=== PATIENT | male | born 1960 | race Caucasian/White ===

== ENCOUNTER 2016-11-24 05:37 | Day surgery (SDC) | payer OTHER ==
[2016-11-17 13:44] VITALS: BMI 25.1
[2016-11-24] MEDS ORDERED: ONDANSETRON 4 MG/2 ML VIAL IVPUSH PRN (05:58)
[2016-11-24 07:46] VITALS: BP 130/82; PULSE 78; TEMP 98
== END 2016-11-24 07:50 | disposition home or self-care (01) ==
LOC: FECT 05:37
PROVIDERS: ATTEND Psychiatry & Neurology Psychiatry
PROC: GZB4ZZZ Other Electroconvulsive Therapy (ICD-10-PCS; principal; 2016-11-24 07:00)
DX: F25.1 Schizoaffective disorder, depressive type (principal)
CPT/HCPCS: 90870; 94760

== ENCOUNTER 2016-12-22 05:25 | Day surgery (SDC) | payer OTHER ==
[2016-12-22 06:11] VITALS: BMI 25.1
--- NOTE | 2016-12-22 06:56 | HP ---
Admitting History and Physical - Admission History of Present Illness: patient is a 56 y/o male with a past medical history of polycystic kidney disease, hypertension, hyperlipidemia, and scizoaffective disorder. patient presents for ect, his last ect was 11/24/16. patient reports feeling well, denies any recent illness or hospitalizations. he reports compliance with prescribed medications. patient denies any cough, fever, shortness of breath or chest pain. History Source: Patient Limitations to Obtaining History: No Limitations - Past Medical History Cardiovascular: Yes: HTN, Hyperlipdemia Renal/: Yes: Other (polycystic kidney disease.) Endocrine: Yes: Hypothyroidism - Past Surgical History Past Surgical History: Yes: None - Smoking History Smoking history: Never smoked Have you smoked in the past 12 months: No - Alcohol/Substance Use Hx Alcohol Use: No - Social History Usual Living Arrangement: Yes: Alone ADL: Independent History of Recent Travel: No Home Medications - Allergies Allergies/Adverse Reactions: Allergies Allergy/AdvReac Type Severity Reaction Status Date / Time propranolol HCl Allergy Severe Difficulty Verified 09/01/16 06:34 [From Inderal [place]] Breathing clozapine [From Clozaril] Allergy Intermediate Difficulty Verified 09/01/16 06: 34 Breathing Penicillins Allergy Intermediate Rash Verified 09/01/16 06:34 - Home Medications Home Medications: Ambulatory Orders Fluphenazine HCl [Prolixin -] 5 mg PO HS 03/15/13 Levothyroxine [Synthroid -] 50 mcg PO DAILY 03/15/13 Losartan Potassium 50 mg PO DAILY 03/15/13 Olanzapine [Zyprexa] 30 mg PO HS 03/15/13 Quetiapine Fumarate [Seroquel -] 400 mg PO DAILY 03/15/13 Quetiapine Fumarate [Seroquel -] 600 mg PO HS 03/15/13 Rosuvastatin Calcium [Crestor] 10 mg PO HS 03/15/13 Family Disease History - Family Disease History Family History: Unremarkable Review of Systems - Review of Systems Constitutional: reports: No Symptoms Eyes: reports: No Symptoms HENT: reports: No Symptoms Neck: reports: No Symptoms Cardiovascular: reports: No Symptoms Respiratory: reports: No Symptoms Gastrointestinal: reports: No Symptoms Genitourinary: reports: No Symptoms Musculoskeletal: reports: No Symptoms Integumentary: reports: No Symptoms Neurological: reports: No Symptoms Endocrine: reports: No Symptoms Hematology/Lymphatic: reports: No Symptoms Psychiatric: reports: No Symptoms Physical Examination Vital Signs: Vital Signs Temperature 98.7 F 12/22/16 06:09 Pulse Rate 80 12/22/16 06:09 Respiratory Rate 18 12/22/16 06:09 Blood Pressure 125/75 12/22/16 06:09 O2 Sat by Pulse Oximetry (%) 98 12/22/16 06:09 Constitutional: Yes: Well Nourished, No Distress, Calm, Thin Eyes: Yes: WNL, Conjunctiva Clear, EOM Intact HENT: Yes: WNL, Atraumatic, Normocephalic Neck: Yes: WNL, Supple, Trachea Midline Cardiovascular: Yes: WNL, Regular Rate and Rhythm Respiratory: Yes: WNL, Regular, CTA Bilaterally Gastrointestinal: Yes: WNL, Normal Bowel Sounds, Soft ...Rectal Exam: Yes: Deferred Renal/: Yes: WNL Musculoskeletal: Yes: WNL Extremities: Yes: WNL Edema: No Peripheral Pulses WNL: Yes Integumentary: Yes: WNL Neurological: Yes: WNL, Alert, Oriented ...Motor Strength: WNL Psychiatric: Yes: WNL, Alert, Oriented Labs: reviewed 07/22 Imaging - Results EKG: Image Reviewed, Other (nsr normal axis 07/22) Assessment/Plan pt is a 56 y/o male that presents for ECT, labs and ekg reviewed, he has received ect in the past and denies any adverse reaction to anesthesia, pt is low risk for ECT informed consent, risks/benefits to be obtained by Dr Curiel
[2016-12-22 08:28] VITALS: TEMP 99.2
[2016-12-22 08:31] VITALS: BP 121/71; PULSE 77
== END 2016-12-22 08:35 | disposition home or self-care (01) ==
LOC: FECT 05:25
PROVIDERS: ATTEND Psychiatry & Neurology Psychiatry
PROC: GZB4ZZZ Other Electroconvulsive Therapy (ICD-10-PCS; principal; 2016-12-22 07:00)
DX: F25.1 Schizoaffective disorder, depressive type (principal)
CPT/HCPCS: 90870; 94760

== ENCOUNTER 2017-01-19 05:36 | Day surgery (SDC) | payer OTHER ==
[2017-01-09 14:02] VITALS: BMI 25.1
--- NOTE | 2017-01-19 06:48 | HP ---
Admitting History and Physical - Admission History of Present Illness: patient is a 56 y/o male with a past medical history of scizoaffective disorder , hyperlipidemia, hypertension, and hypothyroidism. patient presents for ect, his last ect was 12/22/16. He reports feeling manic last week and took a prn seroquel with relief of symptoms. Patient denies any suicidal or homicidal ideation, visual or auditory hallucinations. He denies any recent illness, hospitalizations or medication changes. History Source: Patient Limitations to Obtaining History: No Limitations - Past Medical History Cardiovascular: Yes: HTN, Hyperlipdemia Renal/: Yes: Other (polycystic kidney disease.) Endocrine: Yes: Hypothyroidism - Past Surgical History Past Surgical History: Yes: None - Smoking History Smoking history: Never smoked Have you smoked in the past 12 months: No - Alcohol/Substance Use Hx Alcohol Use: No History of Substance Use: reports: None - Social History Usual Living Arrangement: Yes: Alone ADL: Independent History of Recent Travel: No Home Medications - Allergies Allergies/Adverse Reactions: Allergies Allergy/AdvReac Type Severity Reaction Status Date / Time propranolol HCl Allergy Severe Difficulty Verified 09/01/16 06:34 [From Inderal LA] Breathing clozapine [From Clozaril] Allergy Intermediate Difficulty Verified 09/01/16 06: 34 Breathing Penicillins Allergy Intermediate Rash Verified 09/01/16 06:34 - Home Medications Home Medications: Ambulatory Orders Fluphenazine HCl [Prolixin -] 5 mg PO HS 03/15/13 Levothyroxine [Synthroid -] 50 mcg PO DAILY 03/15/13 Losartan Potassium 50 mg PO DAILY 03/15/13 Olanzapine [Zyprexa] 30 mg PO HS 03/15/13 Quetiapine Fumarate [Seroquel -] 400 mg PO DAILY 03/15/13 Quetiapine Fumarate [Seroquel -] 600 mg PO HS 03/15/13 Rosuvastatin Calcium [Crestor] 10 mg PO HS 03/15/13 Quetiapine Fumarate [Seroquel -] 400 mg PO DAILY PRN 01/19/17 Family Disease History - Family Disease History Family History: Unremarkable Review of Systems - Review of Systems Constitutional: reports: No Symptoms Eyes: reports: No Symptoms HENT: reports: No Symptoms Neck: reports: No Symptoms Cardiovascular: reports: No Symptoms Respiratory: reports: No Symptoms Gastrointestinal: reports: No Symptoms Genitourinary: reports: No Symptoms Musculoskeletal: reports: No Symptoms Integumentary: reports: No Symptoms Neurological: reports: No Symptoms Endocrine: reports: No Symptoms Hematology/Lymphatic: reports: No Symptoms Psychiatric: reports: Other (manic episode) Physical Examination Vital Signs: Vital Signs Temperature 98.2 F 01/19/17 06:22 Pulse Rate 84 01/19/17 06:22 Respiratory Rate 18 01/19/17 06:22 Blood Pressure 128/79 01/19/17 06:22 O2 Sat by Pulse Oximetry (%) 99 01/19/17 06:22 Constitutional: Yes: Well Nourished, No Distress, Calm Eyes: Yes: WNL, Conjunctiva Clear, EOM Intact HENT: Yes: WNL, Atraumatic, Normocephalic Neck: Yes: WNL, Supple, Trachea Midline Cardiovascular: Yes: WNL, Regular Rate and Rhythm, S1, S2 Respiratory: Yes: WNL, Regular, CTA Bilaterally Gastrointestinal: Yes: WNL, Normal Bowel Sounds, Soft ...Rectal Exam: Yes: Deferred Renal/: Yes: WNL Breast(s): Yes: WNL Musculoskeletal: Yes: WNL Extremities: Yes: WNL Edema: No Peripheral Pulses WNL: Yes Peripheral Pulses: Left Radial: 4+, Right Radial: 4+, Left Doralis Pedis: 3+, Right Dorsalis Pedis: 3+, Left Femoral: 3+, Right Femoral: 3+ Integumentary: Yes: Laceration Neurological: Yes: WNL, Alert, Oriented ...Motor Strength: WNL Psychiatric: Yes: WNL, Alert, Oriented Labs: CBC WBC 4.7 K/mm3 (4.0-10.0) 01/19/17 06:15 RBC 4.28 M/mm3 (4.00-5.60) 01/19/17 06:15 Hgb 13.1 GM/dL (11.7-16.9) 01/19/17 06:15 Hct 39.0 % (35.4-49) 01/19/17 06:15 MCV 91.2 fl (80-96) 01/19/17 06:15 MCHC 33.5 g/dl (32.0-35.9) 01/19/17 06:15 RDW 14.1 % (11.9-15.9) 01/19/17 06:15 Plt Count 95 K/MM3 (134-434) L D 01/19/17 06:15 MPV 12.1 fl (7.5-11.1) H 01/19/17 06:15 CMP Sodium 143 mmol/L (136-145) 01/19/17 06:15 Potassium 4.0 mmol/L (3.5-5.1) 01/19/17 06:15 Chloride 107 mmol/L (98-107) 01/19/17 06:15 Carbon Dioxide 27 mmol/L (21-32) 01/19/17 06:15 Anion Gap 9 (8-16) 01/19/17 06:15 BUN 30 mg/dL (7-18) H 01/19/17 06:15 Creatinine 1.4 mg/dL (0.7-1.3) H 01/19/17 06:15 Creat Clearance w eGFR 52.42 (>60) 01/19/17 06:15 Random Glucose 97 mg/dL (74-106) 01/19/17 06:15 Calcium 8.7 mg/dL (8.5-10.1) 01/19/17 06:15 Total Bilirubin 0.3 mg/dL (0.2-1.0) 01/19/17 06:15 AST 20 U/L (15-37) 01/19/17 06:15 ALT 29 U/L (12-78) 01/19/17 06:15 Alkaline Phosphatase 90 U/L (45-117) 01/19/17 06:15 Total Protein 7.0 g/dl (6.4-8.2) 01/19/17 06:15 Albumin 3.9 g/dl (3.4-5.0) 01/19/17 06:15 Imaging - Results EKG: Image Reviewed, Other (nsr no ectopy) Assessment/Plan patient is 56 y/o male that presents for ECT, pt has received ect in the past and denies any adverse reaction to anesthesia. labs and ekg reviewed pt is low risk for procedure informed consent, risk/benefits to be obtained by Dr Curiel.
[2017-01-19] MEDS ORDERED: ONDANSETRON 4 MG/2 ML VIAL IVPUSH PRN (07:10)
[2017-01-19 07:28] LABS: MCH 30.6 pg (25.7-33.7); MCHC 33.5 g/dl (32.0-35.9); MEAN CELL VOLUME 91.2 fl (80-96); MEAN PLT VOLUME 12.1 fl (7.5-11.1); PLATELET COUNT 95 K/MM3 (134-434); RDW 14.1 % (11.9-15.9); WHITE BLOOD COUNT 4.7 K/mm3 (4.0-10.0)
[2017-01-19 08:05] LABS: ALBUMIN 3.9 g/dl (3.4-5.0); BILIRUBIN,TOTAL 0.3 mg/dL (0.2-1.0); CALCIUM 8.7 mg/dL (8.5-10.1); CREATININE 1.4 mg/dL (0.7-1.3)
[2017-01-19 09:04] VITALS: BP 126/84; PULSE 80; TEMP 98.4
--- NOTE | 2017-01-19 14:05 | EKG ---
Test Reason : Blood Pressure : / mmHG Vent. Rate : 091 BPM Atrial Rate : 091 BPM P-R Int : 170 ms QRS Dur : 086 ms QT Int : 366 ms P-R-T Axes : 049 -09 033 degrees QTc Int : 450 ms NORMAL SINUS RHYTHM NO PREVIOUS ECGS AVAILABLE Confirmed by MD REY MARJORY ([id number]) on 01/19/2017 2:05:07 PM Referred By: Asad Curiel Confirmed By:KEVIN REY MD
== END 2017-01-19 09:09 | disposition home or self-care (01) ==
LOC: FECT 05:36
PROVIDERS: ATTEND Psychiatry & Neurology Psychiatry
PROC: GZB4ZZZ Other Electroconvulsive Therapy (ICD-10-PCS; principal; 2017-01-19 07:00)
DX: F25.1 Schizoaffective disorder, depressive type (principal)
CPT/HCPCS: 36415; 80053; 85027; 90870; 93005; 93010; 94760

== ENCOUNTER 2017-02-21 05:38 | Day surgery (SDC) | payer OTHER ==
[2017-02-21 06:25] VITALS: BMI 25.1
--- NOTE | 2017-02-21 06:54 | HP ---
Admitting History and Physical - Admission History of Present Illness: patient is a 56 y/o male with a past medical history of hyperlipidemia, hypertension, hypothyroidism, and scizoaffective disorder. Patient presents for ECT his last ECT was 01/19. He reports feeling well, patient denies any recent medication changes or illness or hospitalizations. patient denies any suicidal or homicidal ideation, visual or auditory hallucination. History Source: Patient Limitations to Obtaining History: No Limitations - Past Medical History Cardiovascular: Yes: HTN, Hyperlipdemia Renal/: Yes: Other (polycystic kidney disease.) Endocrine: Yes: Hypothyroidism - Past Surgical History Past Surgical History: Yes: None - Smoking History Smoking history: Never smoked Have you smoked in the past 12 months: No - Alcohol/Substance Use Hx Alcohol Use: No History of Substance Use: reports: None - Social History ADL: Independent History of Recent Travel: No Home Medications - Allergies Allergies/Adverse Reactions: Allergies Allergy/AdvReac Type Severity Reaction Status Date / Time propranolol HCl Allergy Severe Difficulty Verified 09/01/16 06:34 [From Inderal LA] Breathing clozapine [From Clozaril] Allergy Intermediate Difficulty Verified 09/01/16 06: 34 Breathing Penicillins Allergy Intermediate Rash Verified 09/01/16 06:34 - Home Medications Home Medications: Ambulatory Orders Fluphenazine HCl [Prolixin -] 5 mg PO HS 03/15/13 Levothyroxine [Synthroid -] 50 mcg PO DAILY 03/15/13 Losartan Potassium 50 mg PO DAILY 03/15/13 Olanzapine [Zyprexa] 30 mg PO HS 03/15/13 Quetiapine Fumarate [Seroquel -] 400 mg PO DAILY 03/15/13 Quetiapine Fumarate [Seroquel -] 600 mg PO HS 03/15/13 Rosuvastatin Calcium [Crestor] 10 mg PO HS 03/15/13 Quetiapine Fumarate [Seroquel -] 400 mg PO DAILY PRN 01/19/17 Family Disease History - Family Disease History Family History: Unremarkable Review of Systems - Review of Systems Constitutional: reports: No Symptoms Eyes: reports: No Symptoms HENT: reports: No Symptoms Neck: reports: No Symptoms Cardiovascular: reports: No Symptoms Respiratory: reports: No Symptoms Gastrointestinal: reports: No Symptoms Genitourinary: reports: No Symptoms Breasts: reports: No Symptoms Reported Musculoskeletal: reports: No Symptoms Integumentary: reports: No Symptoms Neurological: reports: No Symptoms Endocrine: reports: No Symptoms Hematology/Lymphatic: reports: No Symptoms Psychiatric: reports: No Symptoms Physical Examination Vital Signs: Vital Signs Temperature 98.7 F 02/21/17 06:18 Pulse Rate 78 02/21/17 06:18 Respiratory Rate 18 02/21/17 06:18 Blood Pressure 120/77 02/21/17 06:18 O2 Sat by Pulse Oximetry (%) 96 02/21/17 06:18 Constitutional: Yes: Well Nourished, No Distress, Calm Eyes: Yes: WNL, Conjunctiva Clear, EOM Intact HENT: Yes: WNL, Atraumatic, Normocephalic Neck: Yes: WNL, Supple, Trachea Midline Cardiovascular: Yes: WNL, Regular Rate and Rhythm, S1, S2 Respiratory: Yes: WNL, Regular, CTA Bilaterally Gastrointestinal: Yes: WNL, Normal Bowel Sounds, Soft Breast(s): Yes: WNL Musculoskeletal: Yes: WNL Extremities: Yes: WNL Edema: No Peripheral Pulses WNL: Yes Peripheral Pulses: Left Radial: 4+, Right Radial: 4+, Left Doralis Pedis: 3+, Right Dorsalis Pedis: 3+, Left Femoral: 3+, Right Femoral: 3+ Integumentary: Yes: WNL Neurological: Yes: WNL, Alert, Oriented ...Motor Strength: WNL Psychiatric: Yes: WNL, Alert, Oriented Labs: reviewed 01/20 Imaging - Results EKG: Report Reviewed, Image Reviewed (nsr no ischemic changes) Assessment/Plan pt is a 56 y/o male that presents for ect, he has received ect in the past and denies any adverse reaction to anesthesia. labs and ekg reviewed pt is low risk for procedure informed consent and risks/benefits to be obtained by Dr Curiel.
[2017-02-21] MEDS ORDERED: ONDANSETRON 4 MG/2 ML VIAL IVPUSH PRN (08:31)
[2017-02-21] MEDS ORDERED: LACTATED RINGERS SOLUTION 1,000 ML IV SCH (08:45)
[2017-02-21 09:11] VITALS: TEMP 98.3
[2017-02-21 09:12] VITALS: BP 120/80; PULSE 76
== END 2017-02-21 09:05 | disposition home or self-care (01) ==
LOC: FECT 05:38
PROVIDERS: ATTEND Psychiatry & Neurology Psychiatry
PROC: GZB4ZZZ Other Electroconvulsive Therapy (ICD-10-PCS; principal; 2017-02-21 07:00)
DX: F25.1 Schizoaffective disorder, depressive type (principal)
CPT/HCPCS: 90870; 94760

== ENCOUNTER 2017-03-23 05:21 | Day surgery (SDC) | payer OTHER ==
[2017-03-23 06:39] VITALS: BMI 25.8
--- NOTE | 2017-03-23 06:50 | HP ---
Admitting History and Physical - Admission History of Present Illness: patient is a 56 y/o male with a past medical history of scizoaffective disorder , hypertension, hyperlipidemia, and hypothyroidism. patient presents for ect, his last ect was 02/21/17, Patient reports feeling well, he denies any changes to his medications, he denies any recent hospitalizations or illnesses. patient denies any suicidal or homicidal ideation, visual or auditory hallucination. History Source: Patient Limitations to Obtaining History: No Limitations - Past Medical History Cardiovascular: Yes: HTN, Hyperlipdemia Renal/: Yes: Other (polycystic kidney disease.) Endocrine: Yes: Hypothyroidism - Past Surgical History Past Surgical History: Yes: None - Smoking History Smoking history: Never smoked Have you smoked in the past 12 months: No - Alcohol/Substance Use Hx Alcohol Use: No History of Substance Use: reports: None - Social History ADL: Independent History of Recent Travel: No Home Medications - Allergies Allergies/Adverse Reactions: Allergies Allergy/AdvReac Type Severity Reaction Status Date / Time propranolol HCl Allergy Severe Difficulty Verified 09/01/16 06:34 [From Inderal LA] Breathing clozapine [From Clozaril] Allergy Intermediate Difficulty Verified 09/01/16 06: 34 Breathing Penicillins Allergy Intermediate Rash Verified 09/01/16 06:34 - Home Medications Home Medications: Ambulatory Orders Fluphenazine HCl [Prolixin -] 5 mg PO HS 03/15/13 Levothyroxine [Synthroid -] 50 mcg PO DAILY 03/15/13 Losartan Potassium 50 mg PO DAILY 03/15/13 Olanzapine [Zyprexa] 30 mg PO HS 03/15/13 Quetiapine Fumarate [Seroquel -] 400 mg PO DAILY 03/15/13 Quetiapine Fumarate [Seroquel -] 600 mg PO HS 03/15/13 Rosuvastatin Calcium [Crestor] 10 mg PO HS 03/15/13 Quetiapine Fumarate [Seroquel -] 400 mg PO DAILY PRN 01/19/17 Family Disease History - Family Disease History Family History: Unremarkable Review of Systems - Review of Systems Constitutional: reports: No Symptoms Eyes: reports: No Symptoms HENT: reports: No Symptoms Neck: reports: No Symptoms Cardiovascular: reports: No Symptoms Respiratory: reports: No Symptoms Gastrointestinal: reports: No Symptoms Genitourinary: reports: No Symptoms Musculoskeletal: reports: No Symptoms Integumentary: reports: No Symptoms Neurological: reports: No Symptoms Endocrine: reports: No Symptoms Hematology/Lymphatic: reports: No Symptoms Psychiatric: reports: No Symptoms Physical Examination Vital Signs: Vital Signs Temperature 98.4 F 03/23/17 06:35 Pulse Rate 92 H 03/23/17 06:35 Respiratory Rate 18 03/23/17 06:35 Blood Pressure 134/78 03/23/17 06:35 O2 Sat by Pulse Oximetry (%) 97 03/23/17 06:35 Constitutional: Yes: Well Nourished, No Distress, Calm Eyes: Yes: WNL, Conjunctiva Clear, EOM Intact HENT: Yes: WNL, Atraumatic, Normocephalic Neck: Yes: WNL, Supple, Trachea Midline Cardiovascular: Yes: WNL, Regular Rate and Rhythm Respiratory: Yes: WNL, Regular, CTA Bilaterally Gastrointestinal: Yes: WNL, Normal Bowel Sounds, Soft ...Rectal Exam: Yes: Deferred Renal/: Yes: WNL Musculoskeletal: Yes: WNL Extremities: Yes: WNL Edema: No Peripheral Pulses WNL: Yes Peripheral Pulses: Left Radial: 4+, Right Radial: 4+, Left Doralis Pedis: 3+, Right Dorsalis Pedis: 3+, Left Femoral: 3+, Right Femoral: 3+ Integumentary: Yes: WNL Neurological: Yes: WNL, Alert, Oriented ...Motor Strength: WNL Psychiatric: Yes: WNL, Alert, Oriented Labs: reviewed 01/20 Imaging - Results EKG: Other (nsr) Assessment/Plan pt is a 56 y/o male that presents for ect, he has received ect in the past and denies any adverse reaction to anesthesia. labs and ekg reviewed informed consent, risks/benefits to be obtained by Dr Curiel.
[2017-03-23 08:30] VITALS: TEMP 98.6
[2017-03-23 08:51] VITALS: BP 133/80; PULSE 81
[2017-03-23] MEDS ORDERED: ACETAMINOPHEN 325 MG TABLET (FP) PO PRN (09:43)
[2017-03-23] MEDS ORDERED: ONDANSETRON 4 MG/2 ML VIAL IVPUSH PRN (09:43)
== END 2017-03-23 08:55 | disposition home or self-care (01) ==
LOC: FECT 05:21
PROVIDERS: ATTEND Psychiatry & Neurology Psychiatry
PROC: GZB4ZZZ Other Electroconvulsive Therapy (ICD-10-PCS; principal; 2017-03-23 07:00)
DX: F25.1 Schizoaffective disorder, depressive type (principal)
CPT/HCPCS: 90870; 94760

== ENCOUNTER 2017-04-20 05:35 | Day surgery (SDC) | payer OTHER ==
[2017-04-20 06:06] VITALS: BMI 25.1
[2017-04-20 08:15] VITALS: TEMP 97
[2017-04-20 08:17] VITALS: BP 128/73; PULSE 73
== END 2017-04-20 08:18 | disposition home or self-care (01) ==
LOC: FECT 05:35
PROVIDERS: ATTEND Psychiatry & Neurology Psychiatry
PROC: GZB4ZZZ Other Electroconvulsive Therapy (ICD-10-PCS; principal; 2017-04-20 07:00)
DX: F25.1 Schizoaffective disorder, depressive type (principal)
CPT/HCPCS: 90870; 94760

== ENCOUNTER 2017-05-18 05:35 | Day surgery (SDC) | payer OTHER ==
[2017-05-11 12:57] VITALS: BMI 25.1
[2017-05-18 06:39] VITALS: TEMP 98
--- NOTE | 2017-05-18 06:54 | HP ---
Admitting History and Physical - Admission History of Present Illness: patient is a 56 y/o male with a past medical history of scizoaffective disorder , polycystic kidney disease, hypertension, hyperlipidemia, and hypothyroidism. Patient presents for ect, his last ect was 04/20/17. He reports feeling well and reports an improvement in mood since starting ect. He reports his loosartan was decreased to 25 mg daily and reports good blood pressure control since the change. Patient denies any recent illnesses or hospitalizations. History Source: Patient Limitations to Obtaining History: No Limitations - Past Medical History Cardiovascular: Yes: HTN, Hyperlipdemia Renal/: Yes: Other (polycystic kidney disease.) Endocrine: Yes: Hypothyroidism - Past Surgical History Past Surgical History: Yes: None - Smoking History Smoking history: Never smoked Have you smoked in the past 12 months: No - Alcohol/Substance Use Hx Alcohol Use: No History of Substance Use: reports: None - Social History Usual Living Arrangement: Yes: Alone ADL: Independent History of Recent Travel: No Home Medications - Allergies Allergies/Adverse Reactions: Allergies Allergy/AdvReac Type Severity Reaction Status Date / Time propranolol HCl Allergy Severe Difficulty Verified 09/01/16 06:34 [From Inderal LA] Breathing clozapine [From Clozaril] Allergy Intermediate Difficulty Verified 09/01/16 06: 34 Breathing Penicillins Allergy Intermediate Rash Verified 09/01/16 06:34 - Home Medications Home Medications: Ambulatory Orders Fluphenazine HCl [Prolixin -] 5 mg PO HS 03/15/13 Levothyroxine [Synthroid -] 50 mcg PO DAILY 03/15/13 Olanzapine [Zyprexa] 30 mg PO HS 03/15/13 Quetiapine Fumarate [Seroquel -] 400 mg PO DAILY 03/15/13 Quetiapine Fumarate [Seroquel -] 600 mg PO HS 03/15/13 Rosuvastatin Calcium [Crestor] 10 mg PO HS 03/15/13 Losartan Potassium [Cozaar] 25 mg PO HS 04/20/17 Family Disease History - Family Disease History Family History: Unremarkable Review of Systems - Review of Systems Constitutional: reports: No Symptoms Eyes: reports: No Symptoms HENT: reports: No Symptoms Neck: reports: No Symptoms Cardiovascular: reports: No Symptoms Respiratory: reports: No Symptoms Gastrointestinal: reports: No Symptoms Genitourinary: reports: No Symptoms Musculoskeletal: reports: No Symptoms Integumentary: reports: No Symptoms Neurological: reports: No Symptoms Endocrine: reports: No Symptoms Hematology/Lymphatic: reports: No Symptoms Psychiatric: reports: No Symptoms Physical Examination Vital Signs: Vital Signs Temperature 98.0 F 05/18/17 06:31 Pulse Rate 72 05/18/17 06:31 Respiratory Rate 18 05/18/17 06:31 Blood Pressure 112/74 05/18/17 06:31 O2 Sat by Pulse Oximetry (%) 96 05/18/17 06:31 Constitutional: Yes: Well Nourished, No Distress, Calm Eyes: Yes: WNL, Conjunctiva Clear, EOM Intact HENT: Yes: WNL, Atraumatic, Normocephalic Neck: Yes: WNL, Supple, Trachea Midline Cardiovascular: Yes: WNL, Regular Rate and Rhythm, S1, S2 Respiratory: Yes: WNL, Regular, CTA Bilaterally Gastrointestinal: Yes: WNL, Normal Bowel Sounds, Soft ...Rectal Exam: Yes: Deferred Renal/: Yes: WNL Musculoskeletal: Yes: WNL Extremities: Yes: WNL Edema: No Peripheral Pulses WNL: Yes Peripheral Pulses: Left Radial: 4+, Right Radial: 4+, Left Doralis Pedis: 3+, Right Dorsalis Pedis: 3+, Left Femoral: 3+, Right Femoral: 3+ Integumentary: Yes: WNL Neurological: Yes: WNL, Alert, Oriented ...Motor Strength: WNL Psychiatric: Yes: WNL, Alert, Oriented Labs: reviewed 01/20 Imaging - Results EKG: Image Reviewed, Other ( nsr no ischemic changes) Assessment/Plan pt is a 56 y/o male that presents for ect, he has received ect in the past and denies any adverse reaction to anesthesia labs and ekg reviewed pt is low risk for procedure informed consent, risks/benefits to be obtained by Dr Curiel
[2017-05-18 08:37] VITALS: BP 117/75; PULSE 75
== END 2017-05-18 08:35 | disposition home or self-care (01) ==
LOC: FECT 05:35
PROVIDERS: ATTEND Psychiatry & Neurology Psychiatry
PROC: GZB4ZZZ Other Electroconvulsive Therapy (ICD-10-PCS; principal; 2017-05-18 07:00)
DX: F25.1 Schizoaffective disorder, depressive type (principal)
CPT/HCPCS: 90870; 94760

== ENCOUNTER 2017-06-15 05:39 | Day surgery (SDC) | payer OTHER ==
[2017-06-15 07:40] VITALS: TEMP 98.7
[2017-06-15 08:00] VITALS: BP 122/78; PULSE 76
[2017-06-15] MEDS ORDERED: LACTATED RINGERS SOLUTION 1,000 ML IV SCH (10:15)
== END 2017-06-15 08:13 | disposition home or self-care (01) ==
LOC: FECT 05:39
PROVIDERS: ATTEND Psychiatry & Neurology Psychiatry
PROC: GZB4ZZZ Other Electroconvulsive Therapy (ICD-10-PCS; principal; 2017-06-15 07:00)
DX: F25.1 Schizoaffective disorder, depressive type (principal)
CPT/HCPCS: 90870; 94760

== ENCOUNTER 2017-07-13 05:38 | Day surgery (SDC) | payer OTHER ==
[2017-07-07 10:55] VITALS: BMI 25.1
--- NOTE | 2017-07-13 07:31 | HP ---
Admitting History and Physical - Admission History of Present Illness: patient is a 56 y/o male with a past medical history of scizoaffective disorder , polycysitc kidney disease, hypertension, hyperlipidima, and hypothyroidism. Patient presents for ect his last ect 06/15/17. He reports feeling well, denies any changes in medication. Patient denies any recent illnesses or hospitalizations. He denies any suicidal or homicidal ideation, visual or auditory hallucinations. History Source: Patient - Past Medical History Cardiovascular: Yes: HTN, Hyperlipdemia Renal/: Yes: Other (polycystic kidney disease.) Endocrine: Yes: Hypothyroidism - Past Surgical History Past Surgical History: Yes: None - Smoking History Smoking history: Never smoked Have you smoked in the past 12 months: No - Alcohol/Substance Use Hx Alcohol Use: No History of Substance Use: reports: None - Social History Usual Living Arrangement: Yes: Alone ADL: Independent History of Recent Travel: No Home Medications - Allergies Allergies/Adverse Reactions: Allergies Allergy/AdvReac Type Severity Reaction Status Date / Time propranolol HCl Allergy Severe Difficulty Verified 07/13/17 07:13 [From Inderal LA] Breathing clozapine [From Clozaril] Allergy Intermediate Difficulty Verified 07/13/17 07: 13 Breathing Penicillins Allergy Intermediate Rash Verified 07/13/17 07:13 - Home Medications Home Medications: Ambulatory Orders Fluphenazine HCl [Prolixin -] 5 mg PO HS 03/15/13 Levothyroxine [Synthroid -] 50 mcg PO DAILY 03/15/13 Olanzapine [Zyprexa] 30 mg PO HS 03/15/13 Quetiapine Fumarate [Seroquel -] 400 mg PO DAILY 03/15/13 Quetiapine Fumarate [Seroquel -] 600 mg PO HS 03/15/13 Rosuvastatin Calcium [Crestor] 10 mg PO HS 03/15/13 Losartan Potassium [Cozaar] 25 mg PO HS 04/20/17 Family Disease History - Family Disease History Family History: Denies Review of Systems - Review of Systems Constitutional: reports: No Symptoms Eyes: reports: No Symptoms HENT: reports: No Symptoms Neck: reports: No Symptoms Cardiovascular: reports: No Symptoms Respiratory: reports: No Symptoms Gastrointestinal: reports: No Symptoms Genitourinary: reports: No Symptoms Musculoskeletal: reports: No Symptoms Integumentary: reports: No Symptoms Neurological: reports: No Symptoms Endocrine: reports: No Symptoms Hematology/Lymphatic: reports: No Symptoms Psychiatric: reports: No Symptoms Physical Examination Vital Signs: Vital Signs Temperature 98.6 F 07/13/17 07:14 Pulse Rate 86 07/13/17 07:14 Respiratory Rate 16 07/13/17 07:14 Blood Pressure 134/84 07/13/17 07:14 O2 Sat by Pulse Oximetry (%) 98 07/13/17 07:14 Constitutional: Yes: Well Nourished, No Distress, Calm Eyes: Yes: WNL, Conjunctiva Clear, EOM Intact HENT: Yes: WNL, Atraumatic, Normocephalic Neck: Yes: WNL, Supple, Trachea Midline Cardiovascular: Yes: WNL, Regular Rate and Rhythm, S1, S2 Respiratory: Yes: WNL, Regular, CTA Bilaterally Gastrointestinal: Yes: WNL, Normal Bowel Sounds, Soft ...Rectal Exam: Yes: Deferred Renal/: Yes: WNL Musculoskeletal: Yes: WNL Extremities: Yes: WNL Edema: No Peripheral Pulses WNL: Yes Peripheral Pulses: Left Radial: 4+, Right Radial: 4+, Left Doralis Pedis: 3+, Right Dorsalis Pedis: 3+, Left Femoral: 3+, Right Femoral: 3+ Integumentary: Yes: WNL Neurological: Yes: WNL, Alert, Oriented ...Motor Strength: WNL Psychiatric: Yes: WNL, Alert, Oriented Labs: reviewed 01/20 Imaging - Results EKG: Image Reviewed Assessment/Plan pt is a 56 y/o male that presents for ect, labs and ekg reviewed, pt is medically optimized for procedure, informed consent, risks/benefits to be obtained by Dr Curiel.
[2017-07-13 09:04] VITALS: BP 133/73; PULSE 82; TEMP 98.3
== END 2017-07-13 09:05 | disposition home or self-care (01) ==
LOC: FECT 05:38
PROVIDERS: ATTEND Psychiatry & Neurology Psychiatry
PROC: GZB4ZZZ Other Electroconvulsive Therapy (ICD-10-PCS; principal; 2017-07-13 07:00)
DX: F25.1 Schizoaffective disorder, depressive type (principal)
CPT/HCPCS: 90870; 94760

== ENCOUNTER 2017-08-10 05:37 | Day surgery (SDC) | payer OTHER ==
[2017-08-10 06:21] VITALS: BMI 25.1
[2017-08-10 08:23] VITALS: TEMP 98.9
[2017-08-10 08:26] VITALS: BP 133/73; PULSE 84
--- NOTE | 2017-08-10 14:08 | EKG ---
Test Reason : Blood Pressure : / mmHG Vent. Rate : 080 BPM Atrial Rate : 080 BPM P-R Int : 182 ms QRS Dur : 082 ms QT Int : 368 ms P-R-T Axes : 061 003 032 degrees QTc Int : 424 ms NORMAL SINUS RHYTHM NORMAL ECG WHEN COMPARED WITH ECG OF 19-JAN-2017 05:25, NO SIGNIFICANT CHANGE WAS FOUND Confirmed by MILENA ALVES MD ([id number]) on 08/10/2017 2:07:39 PM Referred By: Asad Curiel Confirmed By:MILENA ALVES MD
== END 2017-08-10 08:40 | disposition home or self-care (01) ==
LOC: FECT 05:37
PROVIDERS: ATTEND Psychiatry & Neurology Psychiatry
PROC: GZB4ZZZ Other Electroconvulsive Therapy (ICD-10-PCS; principal; 2017-08-10 07:00)
DX: F25.1 Schizoaffective disorder, depressive type (principal)
CPT/HCPCS: 90870; 93005; 94760

== ENCOUNTER 2017-09-07 05:39 | Day surgery (SDC) | payer OTHER ==
[2017-09-07 06:39] VITALS: BMI 25.1
--- NOTE | 2017-09-07 07:06 | HP ---
Admitting History and Physical - Admission History of Present Illness: patient is a 56 y/o male with a past medical history of hypertension, polycystic diseaes, and scizoaffective disorder. Patient presents for ECT, his last ect was 08/10/17. He reports feeling well. He denies any changes in medications. He denies any recent illnesses or hospitalizations. patient denies any suicidal or homicidal ideation, visual or auditory hallucinations. History Source: Patient - Past Medical History Cardiovascular: Yes: HTN, Hyperlipdemia Renal/: Yes: Other (polycystic kidney disease.) Endocrine: Yes: Hypothyroidism - Past Surgical History Past Surgical History: Yes: None - Smoking History Smoking history: Never smoked Have you smoked in the past 12 months: No - Alcohol/Substance Use Hx Alcohol Use: No History of Substance Use: reports: None - Social History Usual Living Arrangement: Yes: Alone ADL: Independent History of Recent Travel: No Home Medications - Allergies Allergies/Adverse Reactions: Allergies Allergy/AdvReac Type Severity Reaction Status Date / Time propranolol HCl Allergy Severe Difficulty Verified 07/13/17 07:13 [From Inderal [place]] Breathing clozapine [From Clozaril] Allergy Intermediate Difficulty Verified 07/13/17 07: 13 Breathing Penicillins Allergy Intermediate Rash Verified 07/13/17 07:13 - Home Medications Home Medications: Ambulatory Orders Fluphenazine HCl [Prolixin -] 5 mg PO HS 03/15/13 Levothyroxine [Synthroid -] 50 mcg PO DAILY 03/15/13 Olanzapine [Zyprexa] 30 mg PO HS 03/15/13 Quetiapine Fumarate [Seroquel -] 400 mg PO DAILY 03/15/13 Quetiapine Fumarate [Seroquel -] 600 mg PO HS 03/15/13 Rosuvastatin Calcium [Crestor] 10 mg PO HS 03/15/13 Losartan Potassium [Cozaar] 25 mg PO HS 04/20/17 Family Disease History - Family Disease History Family History: Denies Review of Systems - Review of Systems Constitutional: reports: No Symptoms Eyes: reports: No Symptoms HENT: reports: No Symptoms Neck: reports: No Symptoms Cardiovascular: reports: No Symptoms Respiratory: reports: No Symptoms Gastrointestinal: reports: No Symptoms Genitourinary: reports: No Symptoms Musculoskeletal: reports: No Symptoms Integumentary: reports: No Symptoms Neurological: reports: No Symptoms Endocrine: reports: No Symptoms Hematology/Lymphatic: reports: No Symptoms Psychiatric: reports: No Symptoms Physical Examination Vital Signs: Vital Signs Temperature 98.6 F 09/07/17 06:32 Pulse Rate 84 09/07/17 06:32 Respiratory Rate 18 09/07/17 06:32 Blood Pressure 126/84 09/07/17 06:32 O2 Sat by Pulse Oximetry (%) 97 09/07/17 06:32 Constitutional: Yes: Well Nourished, No Distress, Calm Eyes: Yes: WNL, Conjunctiva Clear, EOM Intact HENT: Yes: WNL, Atraumatic, Normocephalic Neck: Yes: WNL, Supple, Trachea Midline Cardiovascular: Yes: WNL, Regular Rate and Rhythm, S1, S2 Respiratory: Yes: WNL, Regular, CTA Bilaterally Gastrointestinal: Yes: WNL, Normal Bowel Sounds, Soft ...Rectal Exam: Yes: Deferred Renal/: Yes: WNL Breast(s): Yes: WNL Musculoskeletal: Yes: WNL Extremities: Yes: WNL Edema: No Peripheral Pulses WNL: Yes Peripheral Pulses: Left Radial: 4+, Right Radial: 4+, Left Doralis Pedis: 3+, Right Dorsalis Pedis: 3+, Left Femoral: 3+, Right Femoral: 3+ Integumentary: Yes: WNL Neurological: Yes: WNL, Alert, Oriented ...Motor Strength: WNL Psychiatric: Yes: WNL, Alert, Oriented Labs: reviewed 06/22 Imaging - Results EKG: Image Reviewed, Other (nsr) Assessment/Plan patient is a 56y/o male that presents for ect, labs and ekg reviewed patient is medically optimized for procedure informed consent, risks/benefits to be obtained by Dr Curiel.
[2017-09-07] MEDS ORDERED: ONDANSETRON 4 MG/2 ML VIAL IVPUSH PRN (07:48)
[2017-09-07 08:46] VITALS: TEMP 99.2
[2017-09-07 08:51] VITALS: BP 130/78; PULSE 76
== END 2017-09-07 08:30 | disposition home or self-care (01) ==
LOC: FECT 05:39
PROVIDERS: ATTEND Psychiatry & Neurology Psychiatry
PROC: GZB4ZZZ Other Electroconvulsive Therapy (ICD-10-PCS; principal; 2017-09-07 07:00)
DX: F25.1 Schizoaffective disorder, depressive type (principal)
CPT/HCPCS: 90870; 94760

== ENCOUNTER 2017-10-05 05:40 | Day surgery (SDC) | payer OTHER ==
[2017-10-05 06:00] VITALS: TEMP 98.2; BMI 25.8
[2017-10-05 08:01] VITALS: BP 133/81; PULSE 78
== END 2017-10-05 08:05 | disposition home or self-care (01) ==
LOC: FECT 05:40
PROVIDERS: ATTEND Psychiatry & Neurology Psychiatry
PROC: GZB4ZZZ Other Electroconvulsive Therapy (ICD-10-PCS; principal; 2017-10-05 07:00)
DX: F25.1 Schizoaffective disorder, depressive type (principal)
CPT/HCPCS: 90870; 94760

== ENCOUNTER 2017-11-02 05:43 | Day surgery (SDC) | payer OTHER ==
[2017-10-25 15:33] VITALS: BMI 25.8
--- NOTE | 2017-11-02 06:58 | HP ---
Admitting History and Physical - Admission History of Present Illness: patient is a 56 y/o male with a past medical history of polycystic kidney disease, hypertension, and scizoaffective disorder. Patient presents for ect, his last ect was 10/05/17. He reports feeling well, patient denies any changes in medications or recent illnesses or hospitalizations. Patient denies any suicidal or homicidal ideation, visual or auditory hallucinations. History Source: Patient Limitations to Obtaining History: No Limitations - Past Medical History Cardiovascular: Yes: HTN, Hyperlipdemia Renal/: Yes: Other (polycystic kidney disease.) Endocrine: Yes: Hypothyroidism - Past Surgical History Past Surgical History: Yes: None - Smoking History Smoking history: Never smoked Have you smoked in the past 12 months: No - Alcohol/Substance Use Hx Alcohol Use: No History of Substance Use: reports: None - Social History Usual Living Arrangement: Yes: With Spouse ADL: Independent History of Recent Travel: No Home Medications - Allergies Allergies/Adverse Reactions: Allergies Allergy/AdvReac Type Severity Reaction Status Date / Time propranolol HCl Allergy Severe Difficulty Verified 10/25/17 15:21 [From Inderal LA] Breathing clozapine [From Clozaril] Allergy Intermediate Difficulty Verified 10/25/17 15: 21 Breathing Penicillins Allergy Intermediate Rash Verified 10/25/17 15:21 - Home Medications Home Medications: Ambulatory Orders Fluphenazine HCl [Prolixin -] 5 mg PO HS 03/15/13 Levothyroxine [Synthroid -] 50 mcg PO DAILY 03/15/13 Olanzapine [Zyprexa] 30 mg PO HS 03/15/13 Quetiapine Fumarate [Seroquel -] 400 mg PO DAILY 03/15/13 Quetiapine Fumarate [Seroquel -] 600 mg PO HS 03/15/13 Rosuvastatin Calcium [Crestor] 10 mg PO HS 03/15/13 Losartan Potassium [Cozaar] 25 mg PO HS 04/20/17 Family Disease History - Family Disease History Family History: Denies Review of Systems - Review of Systems Constitutional: reports: No Symptoms Eyes: reports: No Symptoms HENT: reports: No Symptoms Neck: reports: No Symptoms Cardiovascular: reports: No Symptoms Respiratory: reports: No Symptoms Gastrointestinal: reports: No Symptoms Genitourinary: reports: No Symptoms Musculoskeletal: reports: No Symptoms Integumentary: reports: No Symptoms Neurological: reports: No Symptoms Endocrine: reports: No Symptoms Hematology/Lymphatic: reports: No Symptoms Psychiatric: reports: No Symptoms Physical Examination Constitutional: Yes: Well Nourished, No Distress, Calm Eyes: Yes: WNL, Conjunctiva Clear, EOM Intact HENT: Yes: WNL, Atraumatic, Normocephalic Neck: Yes: WNL, Supple, Trachea Midline Cardiovascular: Yes: WNL, Regular Rate and Rhythm, S1, S2 Respiratory: Yes: WNL, Regular, CTA Bilaterally Gastrointestinal: Yes: WNL, Normal Bowel Sounds, Soft ...Rectal Exam: Yes: Deferred Renal/: Yes: WNL Breast(s): Yes: WNL Musculoskeletal: Yes: WNL Extremities: Yes: WNL Edema: No Peripheral Pulses WNL: Yes Peripheral Pulses: Left Radial: 4+, Right Radial: 4+, Left Doralis Pedis: 3+, Right Dorsalis Pedis: 3+, Left Femoral: 3+, Right Femoral: 3+ Integumentary: Yes: WNL Neurological: Yes: WNL, Alert, Oriented ...Motor Strength: WNL Psychiatric: Yes: WNL, Alert, Oriented Labs: reviewed 06/22 Imaging - Results EKG: Image Reviewed, Other (nsr no ischemic changes) Assessment/Plan joaquin is a 56 y/o male that presents for ect, labs and ekg reviewed patient is medically optimized for procedure informed consent, risk/benefits to be obtained by Dr Curiel
[2017-11-02 07:04] VITALS: TEMP 98.2
[2017-11-02 09:00] VITALS: BP 130/77; PULSE 80
== END 2017-11-02 09:00 | disposition home or self-care (01) ==
LOC: FECT 05:43
PROVIDERS: ATTEND Psychiatry & Neurology Psychiatry
PROC: GZB4ZZZ Other Electroconvulsive Therapy (ICD-10-PCS; principal; 2017-11-02 07:15)
DX: F25.1 Schizoaffective disorder, depressive type (principal)
CPT/HCPCS: 90870; 94760

== ENCOUNTER 2017-11-30 05:36 | Day surgery (SDC) | payer OTHER ==
[2017-11-30 06:07] VITALS: TEMP 98.2; BMI 25.1
[2017-11-30 08:10] VITALS: BP 131/77; PULSE 74
== END 2017-11-30 08:15 | disposition home or self-care (01) ==
LOC: FECT 05:36
PROVIDERS: ATTEND Psychiatry & Neurology Psychiatry
PROC: GZB4ZZZ Other Electroconvulsive Therapy (ICD-10-PCS; principal; 2017-11-30 07:30)
DX: F25.1 Schizoaffective disorder, depressive type (principal)
CPT/HCPCS: 90870; 94760

== ENCOUNTER 2017-12-28 05:43 | Day surgery (SDC) | payer OTHER ==
[2017-12-18 11:56] VITALS: BMI 25.1
--- NOTE | 2017-12-28 07:03 | HP ---
Admitting History and Physical - Admission History of Present Illness: patient is a 57 y/o male with a past medical history of polycystic kidney disease, hypertension, and scizoaffective disorder. Patient presents for ect, his last ect was 11/30/17. Patient reports feeling well. He denies any recent illnesses or hospitalizations. Patient denies any changes in medications. Patient denies any suicidal or homicidal ideation, visual or auditory hallucinations. History Source: Patient Limitations to Obtaining History: No Limitations - Past Medical History Cardiovascular: Yes: HTN, Hyperlipdemia Renal/: Yes: Other (polycystic kidney disease.) Endocrine: Yes: Hypothyroidism - Past Surgical History Past Surgical History: Yes: None - Smoking History Smoking history: Never smoked Have you smoked in the past 12 months: No - Alcohol/Substance Use Hx Alcohol Use: No History of Substance Use: reports: None - Social History Usual Living Arrangement: Yes: With Spouse ADL: Independent History of Recent Travel: No Home Medications - Allergies Allergies/Adverse Reactions: Allergies Allergy/AdvReac Type Severity Reaction Status Date / Time propranolol HCl Allergy Severe Difficulty Verified 10/25/17 15:21 [From Inderal LA] Breathing clozapine [From Clozaril] Allergy Intermediate Difficulty Verified 10/25/17 15: 21 Breathing Penicillins Allergy Intermediate Rash Verified 10/25/17 15:21 - Home Medications Home Medications: Ambulatory Orders Fluphenazine HCl [Prolixin -] 5 mg PO HS 03/15/13 Levothyroxine [Synthroid -] 50 mcg PO DAILY 03/15/13 Olanzapine [Zyprexa] 30 mg PO HS 03/15/13 Quetiapine Fumarate [Seroquel -] 400 mg PO DAILY 03/15/13 Quetiapine Fumarate [Seroquel -] 600 mg PO HS 03/15/13 Rosuvastatin Calcium [Crestor] 10 mg PO HS 03/15/13 Losartan Potassium [Cozaar] 25 mg PO HS 04/20/17 Family Disease History - Family Disease History Family History: Denies Review of Systems - Review of Systems Constitutional: reports: No Symptoms Eyes: reports: No Symptoms HENT: reports: No Symptoms Neck: reports: No Symptoms Cardiovascular: reports: No Symptoms Respiratory: reports: No Symptoms Gastrointestinal: reports: No Symptoms Genitourinary: reports: No Symptoms Musculoskeletal: reports: No Symptoms Integumentary: reports: No Symptoms Neurological: reports: No Symptoms Endocrine: reports: No Symptoms Hematology/Lymphatic: reports: No Symptoms Psychiatric: reports: No Symptoms Physical Examination Vital Signs: Vital Signs Temperature 99 F 12/28/17 06:55 Pulse Rate 90 12/28/17 06:55 Respiratory Rate 18 12/28/17 06:55 Blood Pressure 134/80 12/28/17 06:55 O2 Sat by Pulse Oximetry (%) 98 12/28/17 06:55 Constitutional: Yes: Well Nourished, No Distress, Calm Eyes: Yes: WNL, Conjunctiva Clear, EOM Intact HENT: Yes: WNL, Atraumatic, Normocephalic Neck: Yes: WNL, Supple, Trachea Midline Cardiovascular: Yes: WNL, Regular Rate and Rhythm, S1, S2 Respiratory: Yes: WNL, Regular, CTA Bilaterally Gastrointestinal: Yes: WNL, Normal Bowel Sounds, Soft ...Rectal Exam: Yes: Deferred Renal/: Yes: WNL Breast(s): Yes: WNL Musculoskeletal: Yes: WNL Extremities: Yes: WNL Edema: No Peripheral Pulses WNL: Yes Peripheral Pulses: Left Radial: 4+, Right Radial: 4+, Left Doralis Pedis: 3+, Right Dorsalis Pedis: 3+, Left Femoral: 3+, Right Femoral: 3+ Integumentary: Yes: WNL Neurological: Yes: WNL, Alert, Oriented ...Motor Strength: WNL Psychiatric: Yes: WNL, Alert, Oriented Labs: CBC WBC 5.0 K/mm3 (4.0-10.8) 12/28/17 06:30 RBC 4.06 M/mm3 (4.00-5.60) 12/28/17 06:30 Hgb 12.6 GM/dl (11.7-16.9) 12/28/17 06:30 Hct 36.8 % (35.4-49) 12/28/17 06:30 MCV 90.5 fl (80-96) 12/28/17 06:30 MCH 31.1 pg (25.7-33.7) 12/28/17 06:30 MCHC 34.4 g/dl (32.0-35.9) 12/28/17 06:30 RDW 13.5 % (11.9-15.9) 12/28/17 06:30 Plt Count 122 K/MM3 (134-434) L 12/28/17 06:30 MPV 12.5 fl (7.5-11.1) H 12/28/17 06:30 Neutrophils % 69.8 % (42.8-82.8) 12/28/17 06:30 Lymphocytes % 18.6 % (8-40) 12/28/17 06:30 Monocytes % 10.6 % (3.8-10.2) H 12/28/17 06:30 Eosinophils % 0.5 % (0-4.5) 12/28/17 06:30 Basophils % 0.5 % (0-2.0) 12/28/17 06:30 CMP Sodium 138 mmol/L (136-145) 12/28/17 06:30 Potassium 4.1 mmol/L (3.5-5.1) 12/28/17 06:30 Chloride 109 mmol/L (98-107) H 12/28/17 06:30 Carbon Dioxide 25 mmol/L (22-28) 12/28/17 06:30 Anion Gap 4 (8-16) L 12/28/17 06:30 BUN 25 mg/dl (7-18) H 12/28/17 06:30 Creatinine 1.3 mg/dl (0.6-1.3) 12/28/17 06:30 Creat Clearance w eGFR 56.90 (>60) 12/28/17 06:30 Random Glucose 101 mg/dl (74-106) 12/28/17 06:30 Calcium 9.1 mg/dl (8.4-10.2) 12/28/17 06:30 Total Bilirubin 0.5 mg/dl (0.2-1.0) D 12/28/17 06:30 AST 22 U/L (10-42) 12/28/17 06:30 ALT 30 U/L (10-40) D 12/28/17 06:30 Alkaline Phosphatase 80 U/L (32-92) 12/28/17 06:30 Total Protein 6.6 g/dl (6.4-8.3) 12/28/17 06:30 Albumin 4.1 g/dl (3.5-5.0) 12/28/17 06:30 Imaging - Results EKG: Image Reviewed, Other (nsr) Assessment/Plan patient is a 57 y/o male, that presents for ect, labs and ekg reviewed patient is medically optimized for procedure
[2017-12-28 07:31] LABS: RDW 13.5 % (11.9-15.9)
[2017-12-28 07:40] LABS: MCH 31.1 pg (25.7-33.7); MCHC 34.4 g/dl (32.0-35.9); PLATELET COUNT 122 K/MM3 (134-434)
[2017-12-28 07:41] LABS: ALBUMIN 4.1 g/dl (3.5-5.0); ALK PHOS 80 U/L (32-92); ANION GAP 4 (8-16); BILIRUBIN,TOTAL 0.5 mg/dl (0.2-1.0); BLOOD UREA NITROGEN 25 mg/dl (7-18); CALCIUM 9.1 mg/dl (8.4-10.2); CHLORIDE 109 mmol/L (98-107); CO2 25 mmol/L (22-28); CREATININE 1.3 mg/dl (0.6-1.3); GLUCOSE,RANDOM 101 mg/dl (74-106); POTASSIUM 4.1 mmol/L (3.5-5.1); SGOT/AST 22 U/L (10-42); SGPT/ALT 30 U/L (10-40); SODIUM 138 mmol/L (136-145); TOT PROT 6.6 g/dl (6.4-8.3)
[2017-12-28 07:50] LABS: BASO % 0.5 % (0-2.0); EOS % 0.5 % (0-4.5); HEMATOCRIT 36.8 % (35.4-49); HEMOGLOBIN 12.6 GM/dl (11.7-16.9); LYMPH % 18.6 % (8-40); MEAN CELL VOLUME 90.5 fl (80-96); MEAN PLT VOLUME 12.5 fl (7.5-11.1); MONO % 10.6 % (3.8-10.2); NEUT % 69.8 % (42.8-82.8); RBC 4.06 M/mm3 (4.00-5.60)
[2017-12-28 09:32] VITALS: TEMP 98.8
[2017-12-28 09:36] VITALS: BP 134/86; PULSE 88
== END 2017-12-28 09:40 | disposition home or self-care (01) ==
LOC: FECT 05:43
PROVIDERS: ATTEND Psychiatry & Neurology Psychiatry
PROC: GZB4ZZZ Other Electroconvulsive Therapy (ICD-10-PCS; principal; 2017-12-28 07:00)
DX: F25.1 Schizoaffective disorder, depressive type (principal)
CPT/HCPCS: 36415; 80053; 85025

== ENCOUNTER 2018-01-25 05:41 | Day surgery (SDC) | payer OTHER ==
[2018-01-19 15:30] VITALS: BMI 25.1
[2018-01-25 08:24] VITALS: TEMP 98.1
[2018-01-25 08:25] VITALS: BP 125/75; PULSE 88
== END 2018-01-25 08:25 | disposition home or self-care (01) ==
LOC: FECT 05:41
PROVIDERS: ATTEND Psychiatry & Neurology Psychiatry
PROC: GZB4ZZZ Other Electroconvulsive Therapy (ICD-10-PCS; principal; 2018-01-25 07:15)
DX: F25.1 Schizoaffective disorder, depressive type (principal)
CPT/HCPCS: 90870; 94760

== ENCOUNTER 2018-02-22 05:45 | Day surgery (SDC) | payer OTHER ==
[2018-02-22 07:07] VITALS: BMI 25.7
--- NOTE | 2018-02-22 07:14 | HP ---
Admitting History and Physical - Admission History of Present Illness: Patient is a 57 y/o male with a past medical history of polycystic kidney disease, hypertension and scizoaffective disoder. Patient presents for ect, his last ect was 01/25/18. Patient reports feeling well, he denies any recent illnesses or hospitalizations. patient reports compliance with prescribed medications. Patient denies any suicidal or homicidal ideation, visual or auditory hallucinations. History Source: Patient Limitations to Obtaining History: No Limitations - Past Medical History Cardiovascular: Yes: HTN, Hyperlipdemia Renal/: Yes: Other (polycystic kidney disease.) Endocrine: Yes: Hypothyroidism - Past Surgical History Past Surgical History: Yes: None - Smoking History Smoking history: Never smoked Have you smoked in the past 12 months: No - Alcohol/Substance Use Hx Alcohol Use: No History of Substance Use: reports: None - Social History Usual Living Arrangement: Yes: With Spouse ADL: Independent History of Recent Travel: No Home Medications - Allergies Allergies/Adverse Reactions: Allergies Allergy/AdvReac Type Severity Reaction Status Date / Time propranolol HCl Allergy Severe Difficulty Verified 10/25/17 15:21 [From Inderal LA] Breathing clozapine [From Clozaril] Allergy Intermediate Difficulty Verified 10/25/17 15: 21 Breathing Penicillins Allergy Intermediate Rash Verified 10/25/17 15:21 - Home Medications Home Medications: Ambulatory Orders Fluphenazine HCl [Prolixin -] 5 mg PO HS 03/15/13 Levothyroxine [Synthroid -] 50 mcg PO DAILY 03/15/13 Olanzapine [Zyprexa] 30 mg PO HS 03/15/13 Quetiapine Fumarate [Seroquel -] 400 mg PO DAILY 03/15/13 Quetiapine Fumarate [Seroquel -] 600 mg PO HS 03/15/13 Rosuvastatin Calcium [Crestor] 10 mg PO HS 03/15/13 Losartan Potassium [Cozaar] 25 mg PO HS 04/20/17 Family Disease History - Family Disease History Family History: Denies Review of Systems - Review of Systems Constitutional: reports: No Symptoms Eyes: reports: No Symptoms HENT: reports: No Symptoms Neck: reports: No Symptoms Cardiovascular: reports: No Symptoms Respiratory: reports: No Symptoms Gastrointestinal: reports: No Symptoms Genitourinary: reports: No Symptoms Musculoskeletal: reports: No Symptoms Integumentary: reports: No Symptoms Neurological: reports: No Symptoms Endocrine: reports: No Symptoms Hematology/Lymphatic: reports: No Symptoms Psychiatric: reports: No Symptoms Physical Examination Vital Signs: Vital Signs Temperature 98.1 F 02/22/18 06:48 Pulse Rate 84 02/22/18 06:48 Respiratory Rate 18 02/22/18 06:48 Blood Pressure 127/81 02/22/18 06:48 O2 Sat by Pulse Oximetry (%) 96 02/22/18 06:48 Constitutional: Yes: Well Nourished, No Distress, Calm Eyes: Yes: WNL, Conjunctiva Clear, EOM Intact HENT: Yes: WNL, Atraumatic, Normocephalic Neck: Yes: WNL, Supple, Trachea Midline Cardiovascular: Yes: WNL, Regular Rate and Rhythm, S1, S2 Respiratory: Yes: WNL, Regular, CTA Bilaterally Gastrointestinal: Yes: WNL, Normal Bowel Sounds, Soft ...Rectal Exam: Yes: Deferred Renal/: Yes: WNL Breast(s): Yes: WNL Musculoskeletal: Yes: WNL Extremities: Yes: WNL Edema: No Peripheral Pulses WNL: Yes Peripheral Pulses: Left Radial: 4+, Right Radial: 4+, Left Doralis Pedis: 3+, Right Dorsalis Pedis: 3+, Left Femoral: 3+, Right Femoral: 3+ Integumentary: Yes: WNL Neurological: Yes: WNL, Alert, Oriented ...Motor Strength: WNL Psychiatric: Yes: WNL, Alert, Oriented Labs: reviewed Imaging - Results EKG: Other (nsr) Assessment/Plan patient is a 57 y/o male that presents for ect, labs and ekg recieved patient is medically optimized for procedure informed consent, risks/benefits to be obtained by Dr Curiel
[2018-02-22 09:01] VITALS: BP 129/79; PULSE 84; TEMP 98.9
--- NOTE | 2018-02-24 08:47 | EKG ---
Test Reason : Blood Pressure : / mmHG Vent. Rate : 081 BPM Atrial Rate : 081 BPM P-R Int : 176 ms QRS Dur : 096 ms QT Int : 374 ms P-R-T Axes : 069 006 046 degrees QTc Int : 434 ms NORMAL SINUS RHYTHM NORMAL ECG WHEN COMPARED WITH ECG OF 10-AUG-2017 08:35, NO SIGNIFICANT CHANGE WAS FOUND Confirmed by KARLI MEIER MD ([id number]) on 02/24/2018 8:47:15 AM Referred By: Asad Curiel Confirmed By:KARLI MEIER MD
== END 2018-02-22 09:05 | disposition home or self-care (01) ==
LOC: FECT 05:45
PROVIDERS: ATTEND Psychiatry & Neurology Psychiatry
PROC: GZB4ZZZ Other Electroconvulsive Therapy (ICD-10-PCS; principal; 2018-02-22 07:30)
DX: F25.1 Schizoaffective disorder, depressive type (principal)
CPT/HCPCS: 90870; 93005; 94760

== ENCOUNTER 2018-03-21 05:29 | Day surgery (SDC) | payer OTHER ==
[2018-03-21 05:49] VITALS: BMI 24.8
[2018-03-21 08:21] VITALS: TEMP 97.8
[2018-03-21] MEDS ORDERED: ONDANSETRON 4 MG/2 ML VIAL IVPUSH PRN (08:24)
[2018-03-21] MEDS ORDERED: ACETAMINOPHEN 325 MG TABLET (FP) PO PRN (08:24)
[2018-03-21 08:34] VITALS: BP 116/72; PULSE 76
== END 2018-03-21 08:36 | disposition home or self-care (01) ==
LOC: FECT 05:29
PROVIDERS: ATTEND Psychiatry & Neurology Psychiatry
PROC: GZB4ZZZ Other Electroconvulsive Therapy (ICD-10-PCS; principal; 2018-03-21 08:45)
DX: F33.2 Major depressive disorder, recurrent severe without psychotic features (principal)
CPT/HCPCS: 90870; 94760

== ENCOUNTER 2018-04-17 05:43 | Day surgery (SDC) | payer OTHER ==
[2018-04-17 06:08] VITALS: TEMP 98.2; BMI 24.8
--- NOTE | 2018-04-17 07:10 | HP ---
Admitting History and Physical - Admission History of Present Illness: Patient is a 57 y.o male with a past medical history of polycystic kidney disease, hypertension, and scizoaffective disorder. Patient presents for ECT, his last ECT was 03/21/18. Patient reports feeling well, he denies any recent illnesses or hospitalizations. patient denies any changes to medications and he reports compliance with prescribed medications. Patient denies any suicidal or homicidal ideation, visual or auditory hallucinations. History Source: Patient Limitations to Obtaining History: No Limitations - Past Medical History Cardiovascular: Yes: HTN, Hyperlipdemia Renal/: Yes: Other (polycystic kidney disease.) Endocrine: Yes: Hypothyroidism - Past Surgical History Past Surgical History: Yes: None - Smoking History Smoking history: Never smoked Have you smoked in the past 12 months: No - Alcohol/Substance Use Hx Alcohol Use: No History of Substance Use: reports: None - Social History Usual Living Arrangement: Yes: With Spouse ADL: Independent History of Recent Travel: No Home Medications - Allergies Allergies/Adverse Reactions: Allergies Allergy/AdvReac Type Severity Reaction Status Date / Time propranolol HCl Allergy Severe Difficulty Verified 10/25/17 15:21 [From Inderal LA] Breathing clozapine [From Clozaril] Allergy Intermediate Difficulty Verified 10/25/17 15: 21 Breathing Penicillins Allergy Intermediate Rash Verified 10/25/17 15:21 - Home Medications Home Medications: Ambulatory Orders Fluphenazine HCl [Prolixin -] 5 mg PO HS 03/15/13 Levothyroxine [Synthroid -] 50 mcg PO DAILY 03/15/13 Olanzapine [Zyprexa] 30 mg PO HS 03/15/13 Quetiapine Fumarate [Seroquel -] 400 mg PO DAILY 03/15/13 Quetiapine Fumarate [Seroquel -] 600 mg PO HS 03/15/13 Rosuvastatin Calcium [Crestor] 10 mg PO HS 03/15/13 Losartan Potassium [Cozaar] 25 mg PO HS 04/20/17 Quetiapine Fumarate [Seroquel -] 200 mg PO DAILY PRN 03/21/18 Family Disease History - Family Disease History Family History: Denies Review of Systems - Review of Systems Constitutional: reports: No Symptoms Eyes: reports: No Symptoms HENT: reports: No Symptoms Neck: reports: No Symptoms Cardiovascular: reports: No Symptoms Respiratory: reports: No Symptoms Gastrointestinal: reports: No Symptoms Genitourinary: reports: No Symptoms Musculoskeletal: reports: No Symptoms Integumentary: reports: No Symptoms Neurological: reports: No Symptoms Endocrine: reports: No Symptoms Hematology/Lymphatic: reports: No Symptoms Psychiatric: reports: No Symptoms Physical Examination Vital Signs: Vital Signs Temperature 98.2 F 04/17/18 06:14 Pulse Rate 96 H 04/17/18 06:14 Respiratory Rate 18 04/17/18 06:14 Blood Pressure 133/92 04/17/18 06:14 O2 Sat by Pulse Oximetry (%) 96 04/17/18 06:14 Constitutional: Yes: Well Nourished, No Distress, Calm Eyes: Yes: WNL, Conjunctiva Clear, EOM Intact HENT: Yes: WNL, Atraumatic, Normocephalic Neck: Yes: WNL, Supple, Trachea Midline Cardiovascular: Yes: WNL, Regular Rate and Rhythm, S1, S2 Respiratory: Yes: WNL, Regular, CTA Bilaterally Gastrointestinal: Yes: WNL, Normal Bowel Sounds, Soft ...Rectal Exam: Yes: Deferred Renal/: Yes: WNL Musculoskeletal: Yes: WNL Extremities: Yes: WNL Edema: No Peripheral Pulses WNL: Yes Peripheral Pulses: Left Radial: 4+, Right Radial: 4+, Left Doralis Pedis: 3+, Right Dorsalis Pedis: 3+, Left Femoral: 3+, Right Femoral: 3+ Integumentary: Yes: WNL Neurological: Yes: WNL, Alert, Oriented ...Motor Strength: WNL Psychiatric: Yes: WNL, Alert, Oriented Labs: 12/28/17 Imaging - Results EKG: Image Reviewed, Other (nsr) Assessment/Plan patient is 57 y/o male that presents for ect, labs and ekg reviewed patient is medically optimized for procedure informed consent, risks/benefits to be obtained by Dr Curiel.
[2018-04-17 08:56] VITALS: BP 133/85; PULSE 82
== END 2018-04-17 08:55 | disposition home or self-care (01) ==
LOC: FECT 05:43
PROVIDERS: ATTEND Psychiatry & Neurology Psychiatry
PROC: GZB4ZZZ Other Electroconvulsive Therapy (ICD-10-PCS; principal; 2018-04-17 07:45)
DX: F25.1 Schizoaffective disorder, depressive type (principal)
CPT/HCPCS: 90870; 94760

== ENCOUNTER 2018-05-17 05:38 | Day surgery (SDC) | payer OTHER ==
[2018-05-14 16:39] VITALS: BMI 24.8
[2018-05-17] MEDS ORDERED: ONDANSETRON 4 MG/2 ML VIAL IVPUSH PRN (07:00)
[2018-05-17 07:45] VITALS: TEMP 98.2
--- NOTE | 2018-05-17 07:51 | HP ---
Admitting History and Physical - Admission History of Present Illness: Patient is a 57 y/o male with a past medical history of polycystic kidney disease, hypertension, and scizoaffective disorder. Patient presents for ect, he has been undergoing ect since 2012, his last ect was 04/17/18. Patient reports feeling well, he denies any recent illnesses or hospitalization. Patient denies any suicidal or homicidal ideation, visual or auditory hallucinations. History Source: Patient - Past Medical History Cardiovascular: Yes: HTN, Hyperlipdemia Renal/: Yes: Other (polycystic kidney disease.) Endocrine: Yes: Hypothyroidism - Past Surgical History Past Surgical History: Yes: None - Smoking History Smoking history: Never smoked Have you smoked in the past 12 months: No - Alcohol/Substance Use Hx Alcohol Use: No History of Substance Use: reports: None - Social History Usual Living Arrangement: Yes: With Spouse ADL: Independent History of Recent Travel: No Home Medications - Allergies Allergies/Adverse Reactions: Allergies Allergy/AdvReac Type Severity Reaction Status Date / Time propranolol HCl Allergy Severe Difficulty Verified 05/14/18 16:38 [From Inderal LA] Breathing clozapine [From Clozaril] Allergy Intermediate Difficulty Verified 05/14/18 16: 38 Breathing Penicillins Allergy Intermediate Rash Verified 05/14/18 16:38 - Home Medications Home Medications: Ambulatory Orders Fluphenazine HCl [Prolixin -] 5 mg PO HS 03/15/13 Levothyroxine [Synthroid -] 50 mcg PO DAILY 03/15/13 Olanzapine [Zyprexa] 30 mg PO HS 03/15/13 Quetiapine Fumarate [Seroquel -] 400 mg PO DAILY 03/15/13 Quetiapine Fumarate [Seroquel -] 600 mg PO HS 03/15/13 Rosuvastatin Calcium [Crestor] 10 mg PO HS 03/15/13 Losartan Potassium [Cozaar] 25 mg PO HS 04/20/17 Quetiapine Fumarate [Seroquel -] 200 mg PO DAILY PRN 03/21/18 Family Disease History - Family Disease History Family History: Denies Review of Systems - Review of Systems Constitutional: reports: No Symptoms Eyes: reports: No Symptoms HENT: reports: No Symptoms Neck: reports: No Symptoms Cardiovascular: reports: No Symptoms Respiratory: reports: No Symptoms Gastrointestinal: reports: No Symptoms Genitourinary: reports: No Symptoms Musculoskeletal: reports: No Symptoms Integumentary: reports: No Symptoms Neurological: reports: No Symptoms Endocrine: reports: No Symptoms Hematology/Lymphatic: reports: No Symptoms Psychiatric: reports: No Symptoms Physical Examination Vital Signs: Vital Signs Temperature 99 F 05/17/18 07:14 Pulse Rate 87 05/17/18 07:14 Respiratory Rate 20 05/17/18 07:14 Blood Pressure 147/90 05/17/18 07:14 O2 Sat by Pulse Oximetry (%) 96 05/17/18 06:08 Constitutional: Yes: Well Nourished, No Distress, Calm Eyes: Yes: WNL, Conjunctiva Clear, EOM Intact HENT: Yes: WNL, Atraumatic, Normocephalic Neck: Yes: WNL, Supple, Trachea Midline Cardiovascular: Yes: WNL, Regular Rate and Rhythm, S1, S2 Respiratory: Yes: WNL, Regular, CTA Bilaterally Gastrointestinal: Yes: WNL, Normal Bowel Sounds, Soft ...Rectal Exam: Yes: Deferred Renal/: Yes: WNL Breast(s): Yes: WNL Musculoskeletal: Yes: WNL Extremities: Yes: WNL Edema: No Peripheral Pulses WNL: Yes Peripheral Pulses: Left Radial: 4+, Right Radial: 4+, Left Doralis Pedis: 3+, Right Dorsalis Pedis: 3+, Left Femoral: 3+, Right Femoral: 3+ Integumentary: Yes: WNL Neurological: Yes: WNL, Alert, Oriented ...Motor Strength: WNL Psychiatric: Yes: WNL, Alert, Oriented Labs: labs reviewed 12/2017 Imaging - Results EKG: Other (nsr) Assessment/Plan patient is a 57 y/o male that presents for ect, labs and ekg reviewed patient is medically optimized for procedure informed consent, risks/benefits to be obtained by Dr Curiel
[2018-05-17 08:19] VITALS: BP 124/74; PULSE 78
== END 2018-05-17 08:27 | disposition home or self-care (01) ==
LOC: FECT 05:38
PROVIDERS: ATTEND Psychiatry & Neurology Psychiatry
PROC: GZB4ZZZ Other Electroconvulsive Therapy (ICD-10-PCS; principal; 2018-05-17 07:00)
DX: F25.1 Schizoaffective disorder, depressive type (principal)
CPT/HCPCS: 90870; 94760

== ENCOUNTER 2018-06-14 05:45 | Day surgery (SDC) | payer OTHER ==
[2018-06-11 11:28] VITALS: BMI 24.8
[2018-06-14 09:38] VITALS: BP 121/70; PULSE 82; TEMP 98
== END 2018-06-14 09:40 | disposition home or self-care (01) ==
LOC: FECT 05:45
PROVIDERS: ATTEND Psychiatry & Neurology Psychiatry
PROC: GZB4ZZZ Other Electroconvulsive Therapy (ICD-10-PCS; principal; 2018-06-14 07:00)
DX: F33.2 Major depressive disorder, recurrent severe without psychotic features (principal)
CPT/HCPCS: 90870; 94760

== ENCOUNTER 2018-08-09 05:39 | Day surgery (SDC) | payer OTHER ==
[2018-08-09 06:40] VITALS: BMI 25.3
[2018-08-09 07:50] VITALS: TEMP 98.6
[2018-08-09 09:40] VITALS: BP 130/82; PULSE 82
== END 2018-08-09 08:15 | disposition home or self-care (01) ==
LOC: FECT 05:39
PROVIDERS: ATTEND Psychiatry & Neurology Psychiatry
PROC: GZB4ZZZ Other Electroconvulsive Therapy (ICD-10-PCS; principal; 2018-08-09 07:00)
DX: F25.1 Schizoaffective disorder, depressive type (principal)
CPT/HCPCS: 90870; 94760

== ENCOUNTER 2018-09-06 05:39 | Day surgery (SDC) | payer OTHER ==
[2018-09-06 07:19] VITALS: BMI 25.2
--- NOTE | 2018-09-06 07:27 | HP ---
Admitting History and Physical - Admission History of Present Illness: Patient is a 57 y/o male with a past medical of scizoaffective disorder, hypertension, and polycystic kidney disease. Patient presents for ect, he has been undergoing ect since 2012, his last ect was 08/10/18. Patient reports feeling well, he denies any recent illnesses or hospitalizations. Patient does report compliance with prescribed medications. He denies any suicidal or homicidal ideation, visual or auditory hallucinations. History Source: Patient Limitations to Obtaining History: No Limitations - Past Medical History Cardiovascular: Yes: HTN, Hyperlipdemia Renal/: Yes: Other (polycystic kidney disease.) Endocrine: Yes: Hypothyroidism - Past Surgical History Past Surgical History: Yes: None - Smoking History Smoking history: Never smoked Have you smoked in the past 12 months: No - Alcohol/Substance Use Hx Alcohol Use: No History of Substance Use: reports: None - Social History Usual Living Arrangement: Yes: With Spouse ADL: Independent History of Recent Travel: No Home Medications - Allergies Allergies/Adverse Reactions: Allergies Allergy/AdvReac Type Severity Reaction Status Date / Time propranolol HCl Allergy Severe Difficulty Verified 05/14/18 16:38 [From Inderal LA] Breathing clozapine [From Clozaril] Allergy Intermediate Difficulty Verified 05/14/18 16: 38 Breathing Penicillins Allergy Intermediate Rash Verified 05/14/18 16:38 - Home Medications Home Medications: Ambulatory Orders Fluphenazine HCl [Prolixin -] 5 mg PO HS 03/15/13 Levothyroxine [Synthroid -] 50 mcg PO DAILY 03/15/13 Olanzapine [Zyprexa] 30 mg PO HS 03/15/13 Quetiapine Fumarate [Seroquel -] 400 mg PO DAILY 03/15/13 Quetiapine Fumarate [Seroquel -] 600 mg PO HS 03/15/13 Rosuvastatin Calcium [Crestor] 10 mg PO HS 03/15/13 Losartan Potassium [Cozaar] 25 mg PO HS 04/20/17 Quetiapine Fumarate [Seroquel -] 200 mg PO DAILY PRN 03/21/18 Family Disease History - Family Disease History Family History: Denies Review of Systems - Review of Systems Constitutional: reports: No Symptoms Eyes: reports: No Symptoms HENT: reports: No Symptoms Neck: reports: No Symptoms Cardiovascular: reports: No Symptoms Respiratory: reports: No Symptoms Gastrointestinal: reports: No Symptoms Genitourinary: reports: No Symptoms Musculoskeletal: reports: No Symptoms Integumentary: reports: No Symptoms Neurological: reports: No Symptoms Endocrine: reports: No Symptoms Hematology/Lymphatic: reports: No Symptoms Psychiatric: reports: No Symptoms Physical Examination Constitutional: Yes: Well Nourished, No Distress, Calm Eyes: Yes: WNL, Conjunctiva Clear, EOM Intact HENT: Yes: WNL, Atraumatic, Normocephalic Neck: Yes: WNL, Supple, Trachea Midline Cardiovascular: Yes: WNL, Regular Rate and Rhythm, S1, S2 Respiratory: Yes: WNL, Regular, CTA Bilaterally Gastrointestinal: Yes: WNL, Normal Bowel Sounds, Soft ...Rectal Exam: Yes: Deferred Renal/: Yes: WNL Breast(s): Yes: WNL Musculoskeletal: Yes: WNL Extremities: Yes: WNL Edema: No Peripheral Pulses WNL: Yes Peripheral Pulses: Left Radial: 4+, Right Radial: 4+, Left Doralis Pedis: 3+, Right Dorsalis Pedis: 3+, Left Femoral: 3+, Right Femoral: 3+ Integumentary: Yes: WNL Neurological: Yes: WNL, Alert, Oriented ...Motor Strength: WNL Psychiatric: Yes: WNL, Alert, Oriented (reviewed 03/14/18) Imaging - Results EKG: Image Reviewed, Other (nsr) Assessment/Plan patient is a 57 y/o male that presents for ect, labs and ekg reviewed patient is medically optimized for procedure.
[2018-09-06 09:16] VITALS: TEMP 98.2
[2018-09-06 09:38] VITALS: BP 141/77; PULSE 87
[2018-09-06 09:58] LABS: BASO % 0.4 % (0-2.0); EOS % 0.5 % (0-4.5); HEMATOCRIT 39.8 % (35.4-49); HEMOGLOBIN 13.2 GM/dl (11.7-16.9); LYMPH % 17.6 % (8-40); MCH 30.7 pg (25.7-33.7); MCHC 33.1 g/dl (32.0-35.9); MEAN CELL VOLUME 92.6 fl (80-96); MEAN PLT VOLUME 11.6 fl (7.5-11.1); MONO % 9.9 % (3.8-10.2); NEUT % 71.6 % (42.8-82.8); PLATELET COUNT 134 K/MM3 (134-434); RDW 13.6 % (11.9-15.9); WHITE BLOOD COUNT 4.9 K/mm3 (4.0-10.8)
[2018-09-06 10:06] LABS: ALBUMIN 4.3 g/dl (3.5-5.0); ALK PHOS 80 U/L (32-92); ANION GAP 8 MMOL/L (8-16); BILIRUBIN,TOTAL 0.6 mg/dl (0.2-1.0); BLOOD UREA NITROGEN 23 mg/dl (7-18); CALCIUM 9.2 mg/dl (8.4-10.2); CHLORIDE 107 mmol/L (98-107); CO2 27 mmol/L (22-28); CREATININE 1.3 mg/dl (0.6-1.3); GLUCOSE,RANDOM 104 mg/dl (74-106); POTASSIUM 4.2 mmol/L (3.5-5.1); SGOT/AST 22 U/L (10-42); SGPT/ALT 23 U/L (10-40); SODIUM 142 mmol/L (136-145); TOT PROT 6.9 g/dl (6.4-8.3)
--- NOTE | 2018-09-06 15:09 | EKG ---
Test Reason : Blood Pressure : / mmHG Vent. Rate : 079 BPM Atrial Rate : 079 BPM P-R Int : 178 ms QRS Dur : 098 ms QT Int : 376 ms P-R-T Axes : 075 009 051 degrees QTc Int : 431 ms NORMAL SINUS RHYTHM NORMAL ECG WHEN COMPARED WITH ECG OF 22-FEB-2018 06:59, NO SIGNIFICANT CHANGE WAS FOUND Confirmed by MILENA ALVES MD ([id number]) on 09/06/2018 3:08:54 PM Referred By: Asad Curiel Confirmed By:MILENA ALVES MD
== END 2018-09-06 09:30 | disposition home or self-care (01) ==
LOC: FECT 05:39
PROVIDERS: ATTEND Psychiatry & Neurology Psychiatry
PROC: GZB4ZZZ Other Electroconvulsive Therapy (ICD-10-PCS; principal; 2018-09-06 07:00)
DX: F25.1 Schizoaffective disorder, depressive type (principal)
CPT/HCPCS: 36415; 80053; 85025; 90870; 93005; 94760

== ENCOUNTER 2018-10-04 05:43 | Day surgery (SDC) | payer OTHER ==
[2018-09-17 17:59] VITALS: BMI 25.2
[2018-10-04 06:59] VITALS: TEMP 98.2
[2018-10-04 08:35] VITALS: BP 125/75; PULSE 79
== END 2018-10-04 08:40 | disposition home or self-care (01) ==
LOC: FECT 05:43
PROVIDERS: ATTEND Psychiatry & Neurology Psychiatry
PROC: GZB4ZZZ Other Electroconvulsive Therapy (ICD-10-PCS; principal; 2018-10-04 07:00)
DX: F25.1 Schizoaffective disorder, depressive type (principal)
CPT/HCPCS: 90870; 94760

== ENCOUNTER 2018-11-01 05:42 | Day surgery (SDC) | payer OTHER ==
--- NOTE | 2018-11-01 08:02 | HP ---
CHIEF COMPLAINT: Major depressive disorder PCP: Primary Psychiatrist: HISTORY OF PRESENT ILLNESS: 57 year-old male with a PMH significant for HTN, HLD, polycystic kidney disease , hypothyroidism, and major depressive disorder. Patient has been undergoing ECT since 2004. He presents today for ECT. Recent Events: * None PAST MEDICAL HISTORY: Hypertension Hyperlipidemia Polycystic kidney disease Hypothyroidism PAST SURGICAL HISTORY: Parathyroidectomy (~2012) Social History: Smoking: never Alcohol: no Drugs: no Allergies propranolol HCl [From Inderal LA] Allergy (Severe, Verified 05/14/18 16:38) Difficulty Breathing clozapine [From Clozaril] Allergy (Intermediate, Verified 05/14/18 16:38) Difficulty Breathing Penicillins Allergy (Intermediate, Verified 05/14/18 16:38) Rash HOME MEDICATIONS: Medication Instructions Recorded Fluphenazine HCl [Prolixin -] 5 mg PO HS 03/15/13 Levothyroxine [Synthroid -] 50 mcg PO DAILY 03/15/13 Olanzapine [Zyprexa] 30 mg PO HS 03/15/13 Quetiapine Fumarate [Seroquel -] 400 mg PO DAILY 03/15/13 Quetiapine Fumarate [Seroquel -] 600 mg PO HS 03/15/13 Rosuvastatin Calcium [Crestor] 10 mg PO HS 03/15/13 Losartan Potassium [Cozaar] 25 mg PO HS 04/20/17 Quetiapine Fumarate [Seroquel -] 200 mg PO DAILY PRN 03/21/18 REVIEW OF SYSTEMS CONSTITUTIONAL: Absent: fever, chills, diaphoresis, generalized weakness, malaise, loss of appetite, weight change HEENT: Absent: rhinorrhea, nasal congestion, throat pain, throat swelling, difficulty swallowing, mouth swelling, ear pain, eye pain, visual changes CARDIOVASCULAR: Absent: chest pain, syncope, palpitations, irregular heart rate, lightheadedness , peripheral edema RESPIRATORY: Absent: cough, shortness of breath, dyspnea with exertion, orthopnea, wheezing, stridor, hemoptysis GASTROINTESTINAL: Absent: abdominal pain, abdominal distension, nausea, vomiting, diarrhea, constipation, melena, hematochezia GENITOURINARY: Absent: dysuria, frequency, urgency, hesitancy, hematuria, flank pain, genital pain MUSCULOSKELETAL: Absent: myalgia, arthralgia, joint swelling, back pain, neck pain SKIN: Absent: rash, itching, pallor HEMATOLOGIC/IMMUNOLOGIC: Absent: easy bleeding, easy bruising, lymphadenopathy, frequent infections ENDOCRINE: Absent: unexplained weight gain, unexplained weight loss, heat intolerance, cold intolerance NEUROLOGIC: Absent: headache, focal weakness or paresthesias, dizziness, unsteady gait, seizure, mental status changes, bladder or bowel incontinence PHYSICAL EXAMINATION GENERAL: Awake, alert, and fully oriented, in no acute distress. HEAD: Normal with no signs of trauma. EYES: Pupils equal, round and reactive to light, sclera anicteric, conjunctiva clear. LUNGS: Breath sounds equal, clear to auscultation bilaterally. No wheezes, and no crackles. No accessory muscle use. HEART: Regular rate and rhythm, normal S1 and S2 ABDOMEN: Soft, nontender, not distended MUSCULOSKELETAL: Normal range of motion at all joints. No bony deformities or tenderness. No CVA tenderness. UPPER EXTREMITIES: 2+ pulses, warm, well-perfused. No cyanosis. No clubbing. No peripheral edema. LOWER EXTREMITIES: 2+ pulses, warm, well-perfused. No calf tenderness. No peripheral edema. NEUROLOGICAL: Cranial nerves II-XII intact. Normal speech. ASSESSMENT/PLAN: 57 year-old male with a PMH significant for HTN, HLD, polycystic kidney disease , hypothyroidism, and major depressive disorder. He presents today for ECT. Cardiac --no cardiac history --Revised Cardiac Risk Index for Pre-Operative Risk: 0 points, 0.4% risk of major cardiac event Pulmonary --no pulmonary history Neurological --no neurological or neurosurgical history; no history of trauma Anesthesia --no reported problems with anesthesia ECT is a low risk procedure. The relative benefits of the planned procedure outweigh the relative risks for this patient at this time. Visit type - Emergency Visit Emergency Visit: No - New Patient This patient is new to me today: Yes Date on this admission: 11/01/18 - Critical Care Critical Care patient: No
[2018-11-01 08:10] VITALS: BMI 25.1
[2018-11-01 09:21] VITALS: TEMP 98.6
[2018-11-01 09:33] VITALS: BP 135/83; PULSE 80
== END 2018-11-01 09:30 | disposition home or self-care (01) ==
LOC: FECT 05:42
PROVIDERS: ATTEND Psychiatry & Neurology Psychiatry
PROC: GZB4ZZZ Other Electroconvulsive Therapy (ICD-10-PCS; principal; 2018-11-01 07:00)
DX: F25.1 Schizoaffective disorder, depressive type (principal)
CPT/HCPCS: 90870; 94760

== ENCOUNTER 2018-11-29 05:44 | Day surgery (SDC) | payer OTHER ==
[2018-11-29 06:50] VITALS: BMI 25.2
[2018-11-29 08:14] VITALS: TEMP 98.5
[2018-11-29 08:28] VITALS: BP 126/76; PULSE 76
== END 2018-11-29 08:30 | disposition home or self-care (01) ==
LOC: FECT 05:44
PROVIDERS: ATTEND Psychiatry & Neurology Psychiatry
PROC: GZB4ZZZ Other Electroconvulsive Therapy (ICD-10-PCS; principal; 2018-11-29 07:00)
DX: F25.1 Schizoaffective disorder, depressive type (principal)
CPT/HCPCS: 90870; 94760

== ENCOUNTER 2018-12-27 05:50 | Day surgery (SDC) | payer OTHER ==
[2018-12-27 07:15] VITALS: BMI 25.2
[2018-12-27 08:52] VITALS: TEMP 98.6
[2018-12-27 09:07] VITALS: BP 123/71; PULSE 72
--- NOTE | 2018-12-27 09:09 | HP ---
CHIEF COMPLAINT: Major depressive disorder PCP: Primary Psychiatrist: HISTORY OF PRESENT ILLNESS: 57 year-old male with a PMH significant for HTN, HLD, polycystic kidney disease , hypothyroidism, and major depressive disorder. Patient has been undergoing ECT since 2004. He presents today for ECT. Recent Events: * None PAST MEDICAL HISTORY: Hypertension Hyperlipidemia Polycystic kidney disease Hypothyroidism PAST SURGICAL HISTORY: Parathyroidectomy (2012) Social History: Smoking: never Alcohol: no Drugs: no Allergies propranolol HCl [From Inderal LA] Allergy (Severe, Verified 05/14/18 16:38) Difficulty Breathing clozapine [From Clozaril] Allergy (Intermediate, Verified 05/14/18 16:38) Difficulty Breathing Penicillins Allergy (Intermediate, Verified 05/14/18 16:38) Rash HOME MEDICATIONS: Home Medications Medication Instructions Recorded Fluphenazine HCl [Prolixin -] 5 mg PO HS 03/15/13 Levothyroxine [Synthroid -] 50 mcg PO DAILY 03/15/13 Olanzapine [Zyprexa] 30 mg PO HS 03/15/13 Quetiapine Fumarate [Seroquel -] 400 mg PO DAILY 03/15/13 Quetiapine Fumarate [Seroquel -] 600 mg PO HS 03/15/13 Rosuvastatin Calcium [Crestor] 10 mg PO HS 03/15/13 Losartan Potassium [Cozaar] 25 mg PO HS 04/20/17 Quetiapine Fumarate [Seroquel -] 200 mg PO DAILY PRN 03/21/18 REVIEW OF SYSTEMS CONSTITUTIONAL: Absent: fever, chills, diaphoresis, generalized weakness, malaise, loss of appetite, weight change HEENT: Absent: rhinorrhea, nasal congestion, throat pain, throat swelling, difficulty swallowing, mouth swelling, ear pain, eye pain, visual changes CARDIOVASCULAR: Absent: chest pain, syncope, palpitations, irregular heart rate, lightheadedness , peripheral edema RESPIRATORY: Absent: cough, shortness of breath, dyspnea with exertion, orthopnea, wheezing, stridor, hemoptysis GASTROINTESTINAL: Absent: abdominal pain, abdominal distension, nausea, vomiting, diarrhea, constipation, melena, hematochezia GENITOURINARY: Absent: dysuria, frequency, urgency, hesitancy, hematuria, flank pain, genital pain MUSCULOSKELETAL: Absent: myalgia, arthralgia, joint swelling, back pain, neck pain SKIN: Absent: rash, itching, pallor HEMATOLOGIC/IMMUNOLOGIC: Absent: easy bleeding, easy bruising, lymphadenopathy, frequent infections ENDOCRINE: Absent: unexplained weight gain, unexplained weight loss, heat intolerance, cold intolerance NEUROLOGIC: Absent: headache, focal weakness or paresthesias, dizziness, unsteady gait, seizure, mental status changes, bladder or bowel incontinence PHYSICAL EXAMINATION Vital Signs - 24 hr 12/27/18 12/27/18 12/27/18 07:11 08:07 08:12 Temperature 98.4 F Pulse Rate 87 98 H 83 Respiratory 18 16 22 H Rate Blood Pressure 116/81 137/98 124/66 O2 Sat by Pulse 96 100 100 Oximetry (%) 12/27/18 12/27/18 12/27/18 08:17 08:22 08:32 Temperature 98.4 F Pulse Rate 83 78 78 Respiratory 16 14 14 Rate Blood Pressure 124/66 128/78 128/78 O2 Sat by Pulse 100 98 Oximetry (%) 12/27/18 12/27/18 12/27/18 08:35 09:06 09:07 Temperature 98.6 F 98.6 F Pulse Rate 79 72 72 Respiratory 18 18 18 Rate Blood Pressure 127/74 123/71 123/71 O2 Sat by Pulse 98 97 Oximetry (%) GENERAL: Awake, alert, and fully oriented, in no acute distress. HEAD: Normal with no signs of trauma. EYES: Pupils equal, round and reactive to light, sclera anicteric, conjunctiva clear. LUNGS: Breath sounds equal, clear to auscultation bilaterally. No wheezes, and no crackles. No accessory muscle use. HEART: Regular rate and rhythm, normal S1 and S2 ABDOMEN: Soft, nontender, not distended MUSCULOSKELETAL: Normal range of motion at all joints. No bony deformities or tenderness. No CVA tenderness. UPPER EXTREMITIES: 2+ pulses, warm, well-perfused. No cyanosis. No clubbing. No peripheral edema. LOWER EXTREMITIES: 2+ pulses, warm, well-perfused. No calf tenderness. No peripheral edema. NEUROLOGICAL: Cranial nerves II-XII intact. Normal speech. ASSESSMENT/PLAN: 57 year-old male with a PMH significant for HTN, HLD, polycystic kidney disease , hypothyroidism, and major depressive disorder. He presents today for ECT. Cardiac --no cardiac history --Revised Cardiac Risk Index for Pre-Operative Risk: 0 points, 0.4% risk of major cardiac event Pulmonary --no pulmonary history Neurological --no neurological or neurosurgical history; no history of trauma Anesthesia --no reported problems with anesthesia ECT is a low risk procedure. The relative benefits of the planned procedure outweigh the relative risks for this patient at this time. Visit type - Emergency Visit Emergency Visit: No - New Patient This patient is new to me today: Yes Date on this admission: 12/27/18 - Critical Care Critical Care patient: No
[2018-12-27] MEDS ORDERED: ONDANSETRON 4 MG/2 ML VIAL IVPUSH PRN (12:02)
[2018-12-27] MEDS ORDERED: LACTATED RINGERS SOLUTION 1,000 ML IV SCH (12:15)
== END 2018-12-27 09:08 | disposition home or self-care (01) ==
LOC: FECT 05:50
PROVIDERS: ATTEND Psychiatry & Neurology Psychiatry
PROC: GZB4ZZZ Other Electroconvulsive Therapy (ICD-10-PCS; principal; 2018-12-27 07:00)
DX: F25.9 Schizoaffective disorder, unspecified (principal)
CPT/HCPCS: 90870; 94760

== ENCOUNTER 2019-01-24 05:39 | Day surgery (SDC) | payer OTHER ==
[2019-01-16 16:06] VITALS: BMI 25.2
[2019-01-24 06:32] VITALS: TEMP 98.4
[2019-01-24] MEDS ORDERED: LACTATED RINGERS SOLUTION 1,000 ML IV SCH (07:15)
[2019-01-24 08:51] VITALS: BP 119/79; PULSE 84
--- NOTE | 2019-01-24 17:48 | HP ---
CHIEF COMPLAINT: Major depressive disorder PCP: Nirav Ashraf Primary Psychiatrist: BELINDA Varela [facility] [employer] Systems Administrator: Ifeoma Keane HISTORY OF PRESENT ILLNESS: 57 year-old male with a PMH significant for HTN, HLD, polycystic kidney disease , hypothyroidism, and major depressive disorder. Patient has been undergoing ECT since 2004. He presents today for ECT. Recent Events: * financial compliance manager added Vitamin D PAST MEDICAL HISTORY: Hypertension Hyperlipidemia Polycystic kidney disease Hypothyroidism PAST SURGICAL HISTORY: Parathyroidectomy (2012) Social History: Smoking: never Alcohol: no Drugs: no PCP: Primary Psychiatrist: HISTORY OF PRESENT ILLNESS: Recent Events: PAST MEDICAL HISTORY: PAST SURGICAL HISTORY: Social History: Smoking: Alcohol: Drugs: Allergies propranolol HCl [From Inderal LA] Allergy (Severe, Verified 01/16/19 16:03) Difficulty Breathing clozapine [From Clozaril] Allergy (Intermediate, Verified 01/16/19 16:03) Difficulty Breathing Penicillins Allergy (Intermediate, Verified 01/16/19 16:03) Rash HOME MEDICATIONS: Home Medications Medication Instructions Recorded Fluphenazine HCl [Prolixin -] 5 mg PO HS 03/15/13 Levothyroxine [Synthroid -] 50 mcg PO DAILY 03/15/13 Olanzapine [Zyprexa] 30 mg PO HS 03/15/13 Quetiapine Fumarate [Seroquel -] 400 mg PO DAILY 03/15/13 Quetiapine Fumarate [Seroquel -] 600 mg PO HS 03/15/13 Rosuvastatin Calcium [Crestor] 10 mg PO HS 03/15/13 Losartan Potassium [Cozaar] 25 mg PO HS 04/20/17 Quetiapine Fumarate [Seroquel -] 200 mg PO DAILY PRN 03/21/18 Cholecalciferol (Vitamin D3) 1,000 unit PO DAILY 01/24/19 [Vitamin D3] REVIEW OF SYSTEMS CONSTITUTIONAL: Absent: fever, chills, diaphoresis, generalized weakness, malaise, loss of appetite, weight change HEENT: Absent: rhinorrhea, nasal congestion, throat pain, throat swelling, difficulty swallowing, mouth swelling, ear pain, eye pain, visual changes CARDIOVASCULAR: Absent: chest pain, syncope, palpitations, irregular heart rate, lightheadedness , peripheral edema RESPIRATORY: Absent: cough, shortness of breath, dyspnea with exertion, orthopnea, wheezing, stridor, hemoptysis GASTROINTESTINAL: Absent: abdominal pain, abdominal distension, nausea, vomiting, diarrhea, constipation, melena, hematochezia GENITOURINARY: Absent: dysuria, frequency, urgency, hesitancy, hematuria, flank pain, genital pain MUSCULOSKELETAL: Absent: myalgia, arthralgia, joint swelling, back pain, neck pain SKIN: Absent: rash, itching, pallor HEMATOLOGIC/IMMUNOLOGIC: Absent: easy bleeding, easy bruising, lymphadenopathy, frequent infections ENDOCRINE: Absent: unexplained weight gain, unexplained weight loss, heat intolerance, cold intolerance NEUROLOGIC: Absent: headache, focal weakness or paresthesias, dizziness, unsteady gait, seizure, mental status changes, bladder or bowel incontinence PHYSICAL EXAMINATION Vital Signs - 24 hr 01/24/19 01/24/19 01/24/19 06:29 07:25 07:30 Temperature 98.4 F Pulse Rate 92 H 91 H 88 Respiratory 18 18 18 Rate Blood Pressure 132/77 176/89 H 134/91 O2 Sat by Pulse 98 98 99 Oximetry (%) 01/24/19 01/24/19 01/24/19 07:35 07:40 07:45 Temperature 98.4 F Pulse Rate 89 83 82 Respiratory 16 18 18 Rate Blood Pressure 130/82 133/80 125/80 O2 Sat by Pulse 98 97 97 Oximetry (%) 01/24/19 01/24/19 08:15 08:45 Temperature 98.4 F 98.4 F Pulse Rate 84 84 Respiratory 18 18 Rate Blood Pressure 119/79 119/79 O2 Sat by Pulse 98 Oximetry (%) GENERAL: Awake, alert, and fully oriented, in no acute distress. HEAD: Normal with no signs of trauma. EYES: Pupils equal, round and reactive to light, sclera anicteric, conjunctiva clear. LUNGS: Breath sounds equal, clear to auscultation bilaterally. No wheezes, and no crackles. No accessory muscle use. HEART: Regular rate and rhythm, normal S1 and S2 ABDOMEN: Soft, nontender, not distended MUSCULOSKELETAL: Normal range of motion at all joints. No bony deformities or tenderness. No CVA tenderness. UPPER EXTREMITIES: 2+ pulses, warm, well-perfused. No cyanosis. No clubbing. No peripheral edema. LOWER EXTREMITIES: 2+ pulses, warm, well-perfused. No calf tenderness. No peripheral edema. NEUROLOGICAL: Cranial nerves II-XII intact. Normal speech. ASSESSMENT/PLAN: 57 year-old male with a PMH significant for HTN, HLD, polycystic kidney disease , hypothyroidism, and major depressive disorder. Patient presents today for ECT. Cardiac --no cardiac history --Revised Cardiac Risk Index for Pre-Operative Risk: 0 points, 0.4% risk of major cardiac event Pulmonary --no pulmonary history Neurological --no neurological or neurosurgical history; no history of trauma Anesthesia --no reported problems with anesthesia ECT is a low risk procedure. The relative benefits of the planned procedure outweigh the relative risks for this patient at this time. Visit type - Emergency Visit Emergency Visit: No - New Patient This patient is new to me today: Yes Date on this admission: 01/24/19 - Critical Care Critical Care patient: No
== END 2019-01-24 08:45 | disposition home or self-care (01) ==
LOC: FECT 05:39
PROVIDERS: ATTEND Psychiatry & Neurology Psychiatry
PROC: GZB4ZZZ Other Electroconvulsive Therapy (ICD-10-PCS; principal; 2019-01-24 07:00)
DX: F25.0 Schizoaffective disorder, bipolar type (principal)
CPT/HCPCS: 90870; 94760

== ENCOUNTER 2019-02-21 05:40 | Day surgery (SDC) | payer OTHER ==
[2019-02-21 06:31] VITALS: BMI 25.2
[2019-02-21 08:04] VITALS: TEMP 98.8
--- NOTE | 2019-02-21 08:09 | HP ---
Admitting History and Physical - Admission Chief Complaint: Schizoaffective disorders History of Present Illness: 57 year-old male with a PMH significant for HTN, HLD, polycystic kidney disease , hypothyroidism, and major depressive disorder. Patient has been undergoing ECT since 2004. He presents today for ECT. today examined the patient fost ECT denies any chest pain SOB or palpitation or seizures, no recent change in exercise tolerance no c/o orthopnea, PND or palpitation. History Source: Patient - Past Medical History Cardiovascular: Yes: HTN, Hyperlipdemia Renal/: Yes: Other (polycystic kidney disease.) Endocrine: Yes: Hypothyroidism - Past Surgical History Past Surgical History: Yes: None - Smoking History Smoking history: Never smoked Have you smoked in the past 12 months: No - Alcohol/Substance Use Hx Alcohol Use: No History of Substance Use: reports: None - Social History ADL: Independent History of Recent Travel: No Home Medications - Allergies Allergies/Adverse Reactions: Allergies Allergy/AdvReac Type Severity Reaction Status Date / Time propranolol HCl Allergy Severe Difficulty Verified 01/16/19 16:03 [From Inderal LA] Breathing clozapine [From Clozaril] Allergy Intermediate Difficulty Verified 01/16/19 16: 03 Breathing Penicillins Allergy Intermediate Rash Verified 01/16/19 16:03 - Home Medications Home Medications: Ambulatory Orders Fluphenazine HCl [Prolixin -] 5 mg PO HS 03/15/13 Levothyroxine [Synthroid -] 50 mcg PO DAILY 03/15/13 Olanzapine [Zyprexa] 30 mg PO HS 03/15/13 Quetiapine Fumarate [Seroquel -] 400 mg PO DAILY 03/15/13 Quetiapine Fumarate [Seroquel -] 600 mg PO HS 03/15/13 Rosuvastatin Calcium [Crestor] 10 mg PO HS 03/15/13 Losartan Potassium [Cozaar] 25 mg PO HS 04/20/17 Quetiapine Fumarate [Seroquel -] 200 mg PO DAILY PRN 03/21/18 Cholecalciferol (Vitamin D3) [Vitamin D3] 1,000 unit PO DAILY 01/24/19 Family Disease History - Family Disease History Family History: Unremarkable Review of Systems - Review of Systems Constitutional: denies: Chills, Diaphoresis, Fever Eyes: denies: Blind Spots, Blurred Vision HENT: denies: Difficult Swallowing, Ear Discharge Neck: denies: Decreased ROM, Lumps Cardiovascular: denies: Chest Pain, Edema, Palpitations, Shortness of Breath Respiratory: denies: Cough, Exercise Intolerance, Hemoptysis, Orthopnea, PND Gastrointestinal: denies: Abdominal Pain, Bloating, Constipation Genitourinary: denies: Burning, Discharge, Dysuria Musculoskeletal: denies: Back Pain, Crepitus, Decreased ROM Endocrine: denies: Excessive Sweating, Flushing Hematology/Lymphatic: denies: Easily Bruised, Excessive Bleeding, Swollen Glands Psychiatric: denies: Altered Sleep Pattern, Anxiety, Depression Physical Examination Vital Signs: Temperature 98.8 F 02/21/19 07:55 Pulse Rate 84 02/21/19 07:55 Respiratory Rate 18 02/21/19 07:55 Blood Pressure 125/76 02/21/19 07:55 O2 Sat by Pulse Oximetry (%) 97 02/21/19 07:55 GENERAL: Awake, alert, and fully oriented, in no acute distress. HEAD: Normal with no signs of trauma. EYES: Pupils equal, round and reactive to light, sclera anicteric, conjunctiva clear. LUNGS: Breath sounds equal, clear to auscultation bilaterally. No wheezes, and no crackles. No accessory muscle use. HEART: Regular rate and rhythm, normal S1 and S2 ABDOMEN: Soft, nontender, not distended MUSCULOSKELETAL: Normal range of motion at all joints. No bony deformities or tenderness. No CVA tenderness. UPPER EXTREMITIES: 2+ pulses, warm, well-perfused. No cyanosis. No clubbing. No peripheral edema. LOWER EXTREMITIES: 2+ pulses, warm, well-perfused. No calf tenderness. No peripheral edema. NEUROLOGICAL: Cranial nerves II-XII intact. Normal speech. Labs: LAB reviewed 09/06/2018; all are normal at base line Imaging - Results EKG: Report Reviewed (NSR @79 QTc 431 on 09/06/2018) Problem List - Problems (1) HTN (hypertension) Assessment/Plan: Well controlled cont Losartan Potassium [Cozaar] 25 mg PO HS Code(s): I10 - ESSENTIAL (PRIMARY) HYPERTENSION (2) Hypothyroid Assessment/Plan: Stable PMD is checking TSH Levothyroxine [Synthroid -] 50 mcg PO DAILY Code(s): E03.9 - HYPOTHYROIDISM, UNSPECIFIED (3) Hypercholesteremia Assessment/Plan: Rosuvastatin Calcium [Crestor] 10 mg PO HS Code(s): E78.00 - PURE HYPERCHOLESTEROLEMIA, UNSPECIFIED (4) Schizoaffective disorder Assessment/Plan: Stable on ECT and Med , ECT every Month, Cont Home meds Fluphenazine HCl [Prolixin -] 5 mg PO HS 03/15/13 Olanzapine [Zyprexa] 30 mg PO HS 03/15/13 Quetiapine Fumarate [Seroquel -] 400 mg PO DAILY 03/15/13 Quetiapine Fumarate [Seroquel -] 600 mg PO HS 03/15/13 Quetiapine Fumarate [Seroquel -] 200 mg PO DAILY PRN 03/21/18 Code(s): F25.9 - SCHIZOAFFECTIVE DISORDER, UNSPECIFIED (5) PKD (polycystic kidney disease) Assessment/Plan: Stable F/U with [facility] last Renal ultrsound and BMP was 3 months ago as per patient stable. Code(s): Q61.3 - POLYCYSTIC KIDNEY, UNSPECIFIED (6) Pre-op evaluation Assessment/Plan: 51 yrs old Patient H/O Schizoaffective disorders , HTN< PKD normal kidney functions 3 months aago denies any chest pain, PND orthopnea, no chnage in ET , patient has no complication with ECT that he has been recieving since 2004 , now every month, no cardiopulmonary contraindication for this low risk procedure, needs periodic labs every 3 months BMP . Code(s): Z01.818 - ENCOUNTER FOR OTHER PREPROCEDURAL EXAMINATION
[2019-02-22 14:41] VITALS: BP 135/76; PULSE 86
== END 2019-02-21 08:30 | disposition home or self-care (01) ==
LOC: FECT 05:40
PROVIDERS: ATTEND Psychiatry & Neurology Psychiatry
PROC: GZB4ZZZ Other Electroconvulsive Therapy (ICD-10-PCS; principal; 2019-02-21 07:00)
DX: F25.9 Schizoaffective disorder, unspecified (principal)
CPT/HCPCS: 90870; 94760

== ENCOUNTER 2019-03-21 05:43 | Day surgery (SDC) | payer OTHER ==
[2019-03-21 07:13] LABS: BASO % 0.5 % (0-2.0); EOS % 0.9 % (0-4.5); HEMATOCRIT 42.8 % (35.4-49); HEMOGLOBIN 13.8 GM/dl (11.7-16.9); LYMPH % 18.7 % (8-40); MCHC 32.2 g/dl (32.0-35.9); MEAN CELL VOLUME 93.5 fl (80-96); MONO % 12.9 % (3.8-10.2); PLATELET COUNT 115 K/MM3 (134-434); RBC 4.57 M/mm3 (4.00-5.60); RDW 14.2 % (11.9-15.9); WHITE BLOOD COUNT 5.3 K/mm3 (4.0-10.8)
[2019-03-21 07:14] VITALS: BMI 24.8
[2019-03-21 07:22] LABS: ALBUMIN 4.4 g/dl (3.4-5.0); BILIRUBIN,TOTAL 0.5 mg/dl (0.2-1); CALCIUM 9.9 mg/dl (8.5-10); CREATININE 1.6 mg/dl (0.55-1.3); POTASSIUM 4.2 mmol/L (3.5-5.1); TOT PROT 7.7 g/dl (6.4-8.2)
--- NOTE | 2019-03-21 09:40 | HP ---
CHIEF COMPLAINT: Major depressive disorder PCP: Nirav Ashraf Primary Psychiatrist: BELINDA Varela [facility] Arborer: Ifeoma Keane HISTORY OF PRESENT ILLNESS: 57 year-old male with a PMH significant for HTN, HLD, polycystic kidney disease , hypothyroidism, and major depressive disorder. Patient has been undergoing ECT since 2004. He presents today for ECT. 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 PAST MEDICAL HISTORY: Hypertension Hyperlipidemia Polycystic kidney disease Hypothyroidism PAST SURGICAL HISTORY: Parathyroidectomy (2012) Social History: Smoking: never Alcohol: no Drugs: no Allergies propranolol HCl [From Inderal LA] Allergy (Severe, Verified 01/16/19 16:03) Difficulty Breathing clozapine [From Clozaril] Allergy (Intermediate, Verified 01/16/19 16:03) Difficulty Breathing Penicillins Allergy (Intermediate, Verified 01/16/19 16:03) Rash HOME MEDICATIONS: Home Medications Medication Instructions Recorded Fluphenazine HCl [Prolixin -] 5 mg PO HS 03/15/13 Levothyroxine [Synthroid -] 50 mcg PO DAILY 03/15/13 Olanzapine [Zyprexa] 30 mg PO HS 03/15/13 Quetiapine Fumarate [Seroquel -] 400 mg PO DAILY 03/15/13 Quetiapine Fumarate [Seroquel -] 600 mg PO HS 03/15/13 Rosuvastatin Calcium [Crestor] 10 mg PO HS 03/15/13 Losartan Potassium [Cozaar] 25 mg PO HS 04/20/17 Cholecalciferol (Vitamin D3) 1,000 unit PO DAILY 01/24/19 [Vitamin D3] Fluphenazine HCl [Prolixin -] 5 mg PO DAILY PRN 03/21/19 REVIEW OF SYSTEMS CONSTITUTIONAL: Absent: fever, chills, diaphoresis, generalized weakness, malaise, loss of appetite, weight change HEENT: Absent: rhinorrhea, nasal congestion, throat pain, throat swelling, difficulty swallowing, mouth swelling, ear pain, eye pain, visual changes CARDIOVASCULAR: Absent: chest pain, syncope, palpitations, irregular heart rate, lightheadedness , peripheral edema RESPIRATORY: Absent: cough, shortness of breath, dyspnea with exertion, orthopnea, wheezing, stridor, hemoptysis GASTROINTESTINAL: Absent: abdominal pain, abdominal distension, nausea, vomiting, diarrhea, constipation, melena, hematochezia GENITOURINARY: Absent: dysuria, frequency, urgency, hesitancy, hematuria, flank pain, genital pain MUSCULOSKELETAL: Absent: myalgia, arthralgia, joint swelling, back pain, neck pain SKIN: Absent: rash, itching, pallor HEMATOLOGIC/IMMUNOLOGIC: Absent: easy bleeding, easy bruising, lymphadenopathy, frequent infections ENDOCRINE: Absent: unexplained weight gain, unexplained weight loss, heat intolerance, cold intolerance NEUROLOGIC: Absent: headache, focal weakness or paresthesias, dizziness, unsteady gait, seizure, mental status changes, bladder or bowel incontinence PHYSICAL EXAMINATION Vital Signs - 24 hr 03/21/19 03/21/19 03/21/19 07:10 07:44 07:49 Temperature 98.6 F Pulse Rate 99 H 85 16 L Respiratory 18 17 17 Rate Blood Pressure 132/88 162/88 123/78 O2 Sat by Pulse 97 99 98 Oximetry (%) 03/21/19 03/21/19 07:54 07:59 Temperature Pulse Rate 97 H 92 H Respiratory 21 H 16 Rate Blood Pressure 125/78 130/79 O2 Sat by Pulse 98 Oximetry (%) GENERAL: Awake, alert, and fully oriented, in no acute distress. HEAD: Normal with no signs of trauma. EYES: Pupils equal, round and reactive to light, sclera anicteric, conjunctiva clear. LUNGS: Breath sounds equal, clear to auscultation bilaterally. No wheezes, and no crackles. No accessory muscle use. HEART: Regular rate and rhythm, normal S1 and S2 ABDOMEN: Soft, nontender, not distended MUSCULOSKELETAL: Normal range of motion at all joints. No bony deformities or tenderness. No CVA tenderness. UPPER EXTREMITIES: 2+ pulses, warm, well-perfused. No cyanosis. No clubbing. No peripheral edema. LOWER EXTREMITIES: 2+ pulses, warm, well-perfused. No calf tenderness. No peripheral edema. NEUROLOGICAL: Cranial nerves II-XII intact. Normal speech. Laboratory Results - last 24 hr 03/21/19 03/21/19 06:30 06:30 WBC 5.3 RBC 4.57 Hgb 13.8 Hct 42.8 MCV 93.5 MCH 30.0 MCHC 32.2 RDW 14.2 Plt Count 115 L MPV 10.0 D Absolute Neuts (auto) 3.6 Neutrophils % 67.0 Lymphocytes % 18.7 Monocytes % 12.9 H Eosinophils % 0.9 Basophils % 0.5 Sodium 143 Potassium 4.2 Chloride 106 Carbon Dioxide 25 Anion Gap 12 BUN 25 H Creatinine 1.6 H Est GFR (CKD-EPI)AfAm 54.23 Est GFR (CKD-EPI)NonAf 46.79 Random Glucose 108 H Calcium 9.9 Total Bilirubin 0.5 AST 26 ALT 18 Alkaline Phosphatase 90 Total Protein 7.7 Albumin 4.4 ASSESSMENT/PLAN 57 year-old male with a PMH significant for HTN, HLD, polycystic kidney disease , hypothyroidism, and major depressive disorder. Patient has been undergoing ECT since 2004. He presents today for ECT. Cardiac --no cardiac history --Revised Cardiac Risk Index for Pre-Operative Risk: 0 points, 0.4% risk of major cardiac event Pulmonary --no pulmonary history Neurological --no neurological or neurosurgical history; no history of trauma Anesthesia --no reported problems with anesthesia ECT is a low risk procedure. The relative benefits of the planned procedure outweigh the relative risks for this patient at this time. Visit type - Emergency Visit Emergency Visit: No - New Patient This patient is new to me today: Yes Date on this admission: 03/21/19 - Critical Care Critical Care patient: No
[2019-03-21 12:03] VITALS: TEMP 98.5
[2019-03-21 12:05] VITALS: BP 140/85; PULSE 94
--- NOTE | 2019-03-21 14:30 | EKG ---
Test Reason : Blood Pressure : / mmHG Vent. Rate : 098 BPM Atrial Rate : 098 BPM P-R Int : 170 ms QRS Dur : 084 ms QT Int : 348 ms P-R-T Axes : 064 -01 045 degrees QTc Int : 444 ms NORMAL SINUS RHYTHM NORMAL ECG WHEN COMPARED WITH ECG OF 06-SEP-2018 07:33, NO SIGNIFICANT CHANGE WAS FOUND Confirmed by MILENA ALVES MD ([id number]) on 03/21/2019 2:30:19 PM Referred By: Asad Curiel Confirmed By:MILENA ALVES MD
== END 2019-03-21 08:35 | disposition home or self-care (01) ==
LOC: FECT 05:43
PROVIDERS: ATTEND Psychiatry & Neurology Psychiatry
PROC: GZB4ZZZ Other Electroconvulsive Therapy (ICD-10-PCS; principal; 2019-03-21 07:00)
DX: F32.9 Major depressive disorder, single episode, unspecified (principal)
CPT/HCPCS: 36415; 80053; 85025; 90870; 93005; 94760

== ENCOUNTER 2019-04-18 05:51 | Day surgery (SDC) | payer OTHER | END 2019-04-18 08:45 | disposition home or self-care (01) | LOC: FECT 05:51 | PROC: GZB4ZZZ Other Electroconvulsive Therapy (ICD-10-PCS; principal; 2019-04-18 07:00) | DX: F25.9 Schizoaffective disorder, unspecified (principal) ==

== ENCOUNTER 2019-05-16 05:36 | Day surgery (SDC) | payer OTHER ==
[2019-05-16 06:34] VITALS: BMI 25.8
[2019-05-16] MEDS ORDERED: ACETAMINOPHEN 500 MG TABLET (FP) PO PRN (07:29)
[2019-05-16] MEDS ORDERED: PROMETHAZINE HCL 25 MG/1 ML VIAL IVPUSH PRN (07:29)
[2019-05-16] MEDS ORDERED: LACTATED RINGERS SOLUTION 1,000 ML IV SCH (07:30)
[2019-05-16 08:36] VITALS: BP 124/72; PULSE 83; TEMP 97.7
== END 2019-05-16 08:39 | disposition home or self-care (01) ==
LOC: FECT 05:36
PROVIDERS: ATTEND Psychiatry & Neurology Psychiatry
PROC: GZB4ZZZ Other Electroconvulsive Therapy (ICD-10-PCS; principal; 2019-05-16 07:00)
DX: F25.9 Schizoaffective disorder, unspecified (principal)
CPT/HCPCS: 90870; 94760

== ENCOUNTER 2019-06-13 05:44 | Day surgery (SDC) | payer OTHER | END 2019-06-13 08:47 | disposition home or self-care (01) | LOC: FECT 05:44 ==

== ENCOUNTER 2019-07-11 05:43 | Day surgery (SDC) | payer OTHER ==
[2019-07-11 06:30] VITALS: BMI 25.8
[2019-07-11] MEDS ORDERED: ACETAMINOPHEN 500 MG TABLET (FP) PO PRN (07:28)
[2019-07-11] MEDS ORDERED: PROMETHAZINE HCL 25 MG/1 ML VIAL IVPUSH PRN (07:28)
[2019-07-11] MEDS ORDERED: ONDANSETRON 4 MG/2 ML VIAL IVPUSH PRN (07:28)
[2019-07-11] MEDS ORDERED: LACTATED RINGERS SOLUTION 1,000 ML IV SCH (07:30)
[2019-07-11 08:10] VITALS: TEMP 98
[2019-07-11 08:17] VITALS: BP 134/72; PULSE 86
--- NOTE | 2019-07-11 13:59 | HP ---
CHIEF COMPLAINT: Major depressive disorder PCP: Nirav Nichole Primary Psychiatrist: BELINDA Varela [facility] Oxyacetylene Torch Operator: Ifeoma Keane HISTORY OF PRESENT ILLNESS: 57 year-old male with a PMH significant for HTN, HLD, polycystic kidney disease , hypothyroidism, and major depressive disorder. Patient has been undergoing ECT since 2004. He presents today for ECT. Recent Events: * Prolixin morning dose eliminated, takes 5mg at night, tolerating well * Platelets recovered to 95k, no bleeding events, next cbc 07/17 PAST MEDICAL HISTORY: Hypertension Hyperlipidemia Polycystic kidney disease Hypothyroidism PAST SURGICAL HISTORY: Parathyroidectomy (2012) Social History: Smoking: never Alcohol: no Drugs: no Family history: non-contributory Allergies propranolol HCl [From Inderal LA] Allergy (Severe, Verified 06/10/19 13:14) Difficulty Breathing clozapine [From Clozaril] Allergy (Intermediate, Verified 06/10/19 13:14) Difficulty Breathing Penicillins Allergy (Intermediate, Verified 06/10/19 13:14) Rash HOME MEDICATIONS: Home Medications Medication Instructions Recorded Fluphenazine HCl [Prolixin -] 5 mg PO HS 03/15/13 Levothyroxine [Synthroid -] 50 mcg PO DAILY 03/15/13 Olanzapine [Zyprexa] 30 mg PO HS 03/15/13 Quetiapine Fumarate [Seroquel -] 400 mg PO DAILY 03/15/13 Quetiapine Fumarate [Seroquel -] 600 mg PO HS 03/15/13 Rosuvastatin Calcium [Crestor] 10 mg PO HS 03/15/13 Losartan Potassium [Cozaar] 25 mg PO HS 04/20/17 Cholecalciferol (Vitamin D3) 1,000 unit PO HS 01/24/19 [Vitamin D3] REVIEW OF SYSTEMS CONSTITUTIONAL: Absent: fever, chills, diaphoresis, generalized weakness, malaise, loss of appetite, weight change HEENT: Absent: rhinorrhea, nasal congestion, throat pain, throat swelling, difficulty swallowing, mouth swelling, ear pain, eye pain, visual changes CARDIOVASCULAR: Absent: chest pain, syncope, palpitations, irregular heart rate, lightheadedness , peripheral edema RESPIRATORY: Absent: cough, shortness of breath, dyspnea with exertion, orthopnea, wheezing, stridor, hemoptysis GASTROINTESTINAL: Absent: abdominal pain, abdominal distension, nausea, vomiting, diarrhea, constipation, melena, hematochezia GENITOURINARY: Absent: dysuria, frequency, urgency, hesitancy, hematuria, flank pain, genital pain MUSCULOSKELETAL: Absent: myalgia, arthralgia, joint swelling, back pain, neck pain SKIN: Absent: rash, itching, pallor HEMATOLOGIC/IMMUNOLOGIC: Absent: easy bleeding, easy bruising, lymphadenopathy, frequent infections ENDOCRINE: Absent: unexplained weight gain, unexplained weight loss, heat intolerance, cold intolerance NEUROLOGIC: Absent: headache, focal weakness or paresthesias, dizziness, unsteady gait, seizure, mental status changes, bladder or bowel incontinence PHYSICAL EXAMINATION Vital Signs - 24 hr 07/11/19 07/11/19 07/11/19 06:18 07:22 07:27 Temperature 98.7 F 98.2 F Pulse Rate 95 H 91 H 92 H Respiratory 18 20 20 Rate Blood Pressure 140/81 152/71 125/78 O2 Sat by Pulse 99 98 100 Oximetry (%) 07/11/19 07/11/19 07/11/19 07:32 07:37 07:51 Temperature 98.2 F Pulse Rate 87 85 84 Respiratory 14 13 13 Rate Blood Pressure 131/80 126/82 122/59 L O2 Sat by Pulse 100 100 100 Oximetry (%) 07/11/19 07/11/19 07/11/19 07:55 08:16 08:17 Temperature 98 F 98 F Pulse Rate 82 86 86 Respiratory 18 18 18 Rate Blood Pressure 126/78 134/72 134/72 O2 Sat by Pulse 97 97 Oximetry (%) GENERAL: Awake, alert, and fully oriented, in no acute distress. HEAD: Normal with no signs of trauma. EYES: Pupils equal, round and reactive to light, sclera anicteric, conjunctiva clear. LUNGS: Breath sounds equal, clear to auscultation bilaterally. No wheezes, and no crackles. No accessory muscle use. HEART: Regular rate and rhythm, normal S1 and S2 ABDOMEN: Soft, nontender, not distended MUSCULOSKELETAL: Normal range of motion at all joints. No bony deformities or tenderness. No CVA tenderness. UPPER EXTREMITIES: 2+ pulses, warm, well-perfused. No cyanosis. No clubbing. No peripheral edema. LOWER EXTREMITIES: 2+ pulses, warm, well-perfused. No calf tenderness. No peripheral edema. NEUROLOGICAL: Cranial nerves II-XII intact. Normal speech. ASSESSMENT/PLAN: 57 year-old male with a PMH significant for HTN, HLD, polycystic kidney disease , hypothyroidism, and major depressive disorder. He presents today for ECT. Cardiac --no cardiac history --Revised Cardiac Risk Index for Pre-Operative Risk: 0 points, 0.4% risk of major cardiac event Pulmonary --no pulmonary history Neurological --no neurological or neurosurgical history; no history of trauma Anesthesia --no reported problems with anesthesia ECT is a low risk procedure. The relative benefits of the planned procedure outweigh the relative risks for this patient at this time. Visit type - Emergency Visit Emergency Visit: No - New Patient This patient is new to me today: Yes Date on this admission: 07/11/19 - Critical Care Critical Care patient: No
== END 2019-07-11 08:18 | disposition home or self-care (01) ==
LOC: FECT 05:43
PROVIDERS: ATTEND Psychiatry & Neurology Psychiatry
PROC: GZB4ZZZ Other Electroconvulsive Therapy (ICD-10-PCS; principal; 2019-07-11 07:00)
DX: F25.9 Schizoaffective disorder, unspecified (principal)
CPT/HCPCS: 90870; 94760

== ENCOUNTER 2019-08-08 05:38 | Day surgery (SDC) | payer OTHER ==
[2019-08-08 06:30] VITALS: BMI 25.1
[2019-08-08 08:14] VITALS: TEMP 98.5
--- NOTE | 2019-08-08 08:26 | HP ---
CHIEF COMPLAINT: Major depressive disorder PCP: Nirav Ashraf Primary Psychiatrist: BELINDA Varela [facility] Chronograph Operator: Ifeoma Keane HISTORY OF PRESENT ILLNESS: 57 year-old male with a PMH significant for HTN, HLD, polycystic kidney disease , hypothyroidism, and major depressive disorder. Patient has been undergoing ECT since 2004. He presents today for ECT. Recent Events: * platelets stable, no bleeding episodes * completed 10-day course of Cipro following dental work, no complications PAST MEDICAL HISTORY: Hypertension Hyperlipidemia Polycystic kidney disease Hypothyroidism PAST SURGICAL HISTORY: Parathyroidectomy (2012) Social History: Smoking: never Alcohol: no Drugs: no Family history: non-contributory Allergies propranolol HCl [From Inderal LA] Allergy (Severe, Verified 06/10/19 13:14) Difficulty Breathing clozapine [From Clozaril] Allergy (Intermediate, Verified 06/10/19 13:14) Difficulty Breathing Penicillins Allergy (Intermediate, Verified 06/10/19 13:14) Rash HOME MEDICATIONS: Home Medications Medication Instructions Recorded Fluphenazine HCl [Prolixin -] 5 mg PO HS 03/15/13 Levothyroxine [Synthroid -] 50 mcg PO DAILY 03/15/13 Olanzapine [Zyprexa] 30 mg PO HS 03/15/13 Quetiapine Fumarate [Seroquel -] 400 mg PO DAILY 03/15/13 Quetiapine Fumarate [Seroquel -] 600 mg PO HS 03/15/13 Rosuvastatin Calcium [Crestor] 10 mg PO HS 03/15/13 Losartan Potassium [Cozaar] 25 mg PO HS 04/20/17 Cholecalciferol (Vitamin D3) 1,000 unit PO HS 01/24/19 [Vitamin D3] REVIEW OF SYSTEMS CONSTITUTIONAL: Absent: fever, chills, diaphoresis, generalized weakness, malaise, loss of appetite, weight change HEENT: Absent: rhinorrhea, nasal congestion, throat pain, throat swelling, difficulty swallowing, mouth swelling, ear pain, eye pain, visual changes CARDIOVASCULAR: Absent: chest pain, syncope, palpitations, irregular heart rate, lightheadedness , peripheral edema RESPIRATORY: Absent: cough, shortness of breath, dyspnea with exertion, orthopnea, wheezing, stridor, hemoptysis GASTROINTESTINAL: Absent: abdominal pain, abdominal distension, nausea, vomiting, diarrhea, constipation, melena, hematochezia GENITOURINARY: Absent: dysuria, frequency, urgency, hesitancy, hematuria, flank pain, genital pain MUSCULOSKELETAL: Absent: myalgia, arthralgia, joint swelling, back pain, neck pain SKIN: Absent: rash, itching, pallor HEMATOLOGIC/IMMUNOLOGIC: Absent: easy bleeding, easy bruising, lymphadenopathy, frequent infections ENDOCRINE: Absent: unexplained weight gain, unexplained weight loss, heat intolerance, cold intolerance NEUROLOGIC: Absent: headache, focal weakness or paresthesias, dizziness, unsteady gait, seizure, mental status changes, bladder or bowel incontinence PHYSICAL EXAMINATION Vital Signs - 24 hr 08/08/19 08/08/19 08/08/19 06:25 07:34 07:39 Temperature 98.3 F Pulse Rate 99 H 89 85 Respiratory 18 20 16 Rate Blood Pressure 130/83 156/100 127/79 O2 Sat by Pulse 100 100 98 Oximetry (%) 08/08/19 08/08/19 08/08/19 07:44 07:49 08:00 Temperature Pulse Rate 83 80 82 Respiratory 18 18 18 Rate Blood Pressure 127/81 133/80 128/84 O2 Sat by Pulse 100 100 100 Oximetry (%) 08/08/19 08/08/19 08:03 08:05 Temperature 98.3 F 98.5 F Pulse Rate 82 80 Respiratory 18 18 Rate Blood Pressure 128/84 134/86 O2 Sat by Pulse 100 100 Oximetry (%) GENERAL: Awake, alert, and fully oriented, in no acute distress. HEAD: Normal with no signs of trauma. EYES: Pupils equal, round and reactive to light, sclera anicteric, conjunctiva clear. LUNGS: Breath sounds equal, clear to auscultation bilaterally. No wheezes, and no crackles. No accessory muscle use. HEART: Regular rate and rhythm, normal S1 and S2 ABDOMEN: Soft, nontender, not distended MUSCULOSKELETAL: Normal range of motion at all joints. No bony deformities or tenderness. No CVA tenderness. UPPER EXTREMITIES: 2+ pulses, warm, well-perfused. No cyanosis. No clubbing. No peripheral edema. LOWER EXTREMITIES: 2+ pulses, warm, well-perfused. No calf tenderness. No peripheral edema. NEUROLOGICAL: Cranial nerves II-XII intact. Normal speech. ASSESSMENT/PLAN: 57 year-old male with a PMH significant for HTN, HLD, polycystic kidney disease , hypothyroidism, and major depressive disorder. He presents today for ECT. Cardiac --no cardiac history --Revised Cardiac Risk Index for Pre-Operative Risk: 0 points, 0.4% risk of major cardiac event Pulmonary --no pulmonary history Neurological --no neurological or neurosurgical history; no history of trauma Anesthesia --no reported problems with anesthesia ECT is a low risk procedure. The relative benefits of the planned procedure outweigh the relative risks for this patient at this time. Visit type - Emergency Visit Emergency Visit: No - New Patient This patient is new to me today: Yes Date on this admission: 08/08/19 - Critical Care Critical Care patient: No
[2019-08-08 08:36] VITALS: BP 131/84; PULSE 84
[2019-08-08] MEDS ORDERED: ACETAMINOPHEN 325 MG TABLET (FP) PO PRN (08:57)
== END 2019-08-08 08:40 | disposition home or self-care (01) ==
LOC: FECT 05:38
PROVIDERS: ATTEND Psychiatry & Neurology Psychiatry
PROC: GZB4ZZZ Other Electroconvulsive Therapy (ICD-10-PCS; principal; 2019-08-08 07:00)
DX: F25.9 Schizoaffective disorder, unspecified (principal)
CPT/HCPCS: 90870; 94760

== ENCOUNTER 2019-09-05 05:38 | Day surgery (SDC) | payer OTHER ==
[2019-09-05 06:52] VITALS: BMI 25.1
[2019-09-05 08:45] VITALS: TEMP 98.2
[2019-09-05 09:21] VITALS: BP 120/80; PULSE 89
== END 2019-09-05 09:15 | disposition home or self-care (01) ==
LOC: FECT 05:38
PROVIDERS: ATTEND Psychiatry & Neurology Psychiatry
PROC: GZB4ZZZ Other Electroconvulsive Therapy (ICD-10-PCS; principal; 2019-09-05 07:30)
DX: F25.9 Schizoaffective disorder, unspecified (principal)
CPT/HCPCS: 90870; 94760

== ENCOUNTER 2019-10-01 05:36 | Day surgery (SDC) | payer OTHER ==
[2019-10-01 07:23] VITALS: TEMP 98.5; BMI 25.7
[2019-10-01] MEDS ORDERED: KETAMINE HCL 500 MG/10 ML VIAL ONE (08:23)
[2019-10-01 08:33] LABS: HEMATOCRIT 38.6 % (35.4-49); HEMOGLOBIN 12.6 GM/dl (11.7-16.9); MCH 30.7 pg (25.7-33.7); MCHC 32.8 g/dl (32.0-35.9); MEAN CELL VOLUME 93.8 fl (80-96); MEAN PLT VOLUME 9.8 fl (7.5-11.1); PLATELET COUNT 109 K/MM3 (134-434); RBC 4.11 M/mm3 (4.00-5.60); RDW 13.7 % (11.9-15.9); WHITE BLOOD COUNT 6.3 K/mm3 (4.0-10.8)
[2019-10-01 08:41] LABS: ALBUMIN 3.9 g/dl (3.4-5.0); BILIRUBIN,TOTAL 0.3 mg/dl (0.2-1); CALCIUM 8.9 mg/dl (8.5-10); CREATININE 1.5 mg/dl (0.55-1.3); POTASSIUM 4.5 mmol/L (3.5-5.1); TOT PROT 6.4 g/dl (6.4-8.2)
--- NOTE | 2019-10-01 08:46 | HP ---
CHIEF COMPLAINT: Major depressive disorder PCP: Nirav Ashraf Primary [facility]iat[facility] [employer] Teacher Librarian: Ifeoma Keane HISTORY OF PRESENT ILLNESS: 57 year-old male with a PMH significant for HTN, HLD, polycystic kidney disease , hypothyroidism, and major depressive disorder. Patient has been undergoing ECT since 2004. He presents today for ECT. Recent Events: * platelets 120k last lab value; no bleeding episodes PAST MEDICAL HISTORY: Hypertension Hyperlipidemia Polycystic kidney disease Hypothyroidism PAST SURGICAL HISTORY: Parathyroidectomy (2012) Social History: Smoking: never Alcohol: no Drugs: no Family history: non-contributory Allergies propranolol HCl [From Inderal [place]] Allergy (Severe, Verified 06/10/19 13:14) Difficulty Breathing clozapine [From Clozaril] Allergy (Intermediate, Verified 06/10/19 13:14) Difficulty Breathing Penicillins Allergy (Intermediate, Verified 06/10/19 13:14) Rash HOME MEDICATIONS: Home Medications Medication Instructions Recorded Fluphenazine HCl [Prolixin -] 5 mg PO HS 03/15/13 Levothyroxine [Synthroid -] 50 mcg PO DAILY 03/15/13 Olanzapine [Zyprexa] 30 mg PO HS 03/15/13 Quetiapine Fumarate [Seroquel -] 400 mg PO DAILY 03/15/13 Quetiapine Fumarate [Seroquel -] 600 mg PO HS 03/15/13 Rosuvastatin Calcium [Crestor] 10 mg PO HS 03/15/13 Losartan Potassium [Cozaar] 25 mg PO HS 04/20/17 Cholecalciferol (Vitamin D3) 1,000 unit PO HS 01/24/19 [Vitamin D3] REVIEW OF SYSTEMS CONSTITUTIONAL: Absent: fever, chills, diaphoresis, generalized weakness, malaise, loss of appetite, weight change HEENT: Absent: rhinorrhea, nasal congestion, throat pain, throat swelling, difficulty swallowing, mouth swelling, ear pain, eye pain, visual changes CARDIOVASCULAR: Absent: chest pain, syncope, palpitations, irregular heart rate, lightheadedness , peripheral edema RESPIRATORY: Absent: cough, shortness of breath, dyspnea with exertion, orthopnea, wheezing, stridor, hemoptysis GASTROINTESTINAL: Absent: abdominal pain, abdominal distension, nausea, vomiting, diarrhea, constipation, melena, hematochezia GENITOURINARY: Absent: dysuria, frequency, urgency, hesitancy, hematuria, flank pain, genital pain MUSCULOSKELETAL: Absent: myalgia, arthralgia, joint swelling, back pain, neck pain SKIN: Absent: rash, itching, pallor HEMATOLOGIC/IMMUNOLOGIC: Absent: easy bleeding, easy bruising, lymphadenopathy, frequent infections ENDOCRINE: Absent: unexplained weight gain, unexplained weight loss, heat intolerance, cold intolerance NEUROLOGIC: Absent: headache, focal weakness or paresthesias, dizziness, unsteady gait, seizure, mental status changes, bladder or bowel incontinence PHYSICAL EXAMINATION Vital Signs - 24 hr 10/01/19 07:20 Temperature 98.5 F Pulse Rate 97 H Respiratory 18 Rate Blood Pressure 131/77 O2 Sat by Pulse 99 Oximetry (%) GENERAL: Awake, alert, and fully oriented, in no acute distress. HEAD: Normal with no signs of trauma. EYES: Pupils equal, round and reactive to light, sclera anicteric, conjunctiva clear. LUNGS: Breath sounds equal, clear to auscultation bilaterally. No wheezes, and no crackles. No accessory muscle use. HEART: Regular rate and rhythm, normal S1 and S2 ABDOMEN: Soft, nontender, not distended MUSCULOSKELETAL: Normal range of motion at all joints. No bony deformities or tenderness. No CVA tenderness. UPPER EXTREMITIES: 2+ pulses, warm, well-perfused. No cyanosis. No clubbing. No peripheral edema. LOWER EXTREMITIES: 2+ pulses, warm, well-perfused. No calf tenderness. No peripheral edema. NEUROLOGICAL: Cranial nerves II-XII intact. Normal speech. Laboratory Results - last 24 hr 10/01/19 10/01/19 08:10 08:10 WBC 6.3 RBC 4.11 Hgb 12.6 Hct 38.6 MCV 93.8 MCH 30.7 MCHC 32.8 RDW 13.7 Plt Count 109 L D MPV 9.8 D Sodium 139 Potassium 4.5 Chloride 109 H Carbon Dioxide 27 Anion Gap 3 L BUN 24.0 H Creatinine 1.5 H Est GFR (CKD-EPI)AfAm 58.63 Est GFR (CKD-EPI)NonAf 50.59 Random Glucose 107 H Calcium 8.9 Total Bilirubin 0.3 AST 17 ALT 20 Alkaline Phosphatase 66 Total Protein 6.4 Albumin 3.9 ASSESSMENT/PLAN: 57 year-old male with a PMH significant for HTN, HLD, polycystic kidney disease , hypothyroidism, and major depressive disorder. He presents today for ECT. Cardiac --Revised Cardiac Risk Index for Pre-Operative Risk: 0 points, 0.4% risk of major cardiac event Pulmonary --no pulmonary history Neurological --no neurological or neurosurgical history; no history of trauma Anesthesia --no reported problems with anesthesia ECT is a low risk procedure. The relative benefits of the planned procedure outweigh the relative risks for this patient at this time. Visit type - Emergency Visit Emergency Visit: No - New Patient This patient is new to me today: Yes Date on this admission: 10/01/19 - Critical Care Critical Care patient: No
[2019-10-01 09:41] VITALS: BP 141/89; PULSE 88
--- NOTE | 2019-10-02 10:16 | EKG ---
Test Reason : Blood Pressure : / mmHG Vent. Rate : 090 BPM Atrial Rate : 090 BPM P-R Int : 172 ms QRS Dur : 096 ms QT Int : 356 ms P-R-T Axes : 070 004 054 degrees QTc Int : 435 ms NORMAL SINUS RHYTHM NORMAL ECG WHEN COMPARED WITH ECG OF 21-MAR-2019 06:59, NO SIGNIFICANT CHANGE WAS FOUND Confirmed by KARLI MEIER MD ([id number]) on 10/02/2019 10:15:50 AM Referred By: Asad Curiel Confirmed By:KARLI MEIER MD
== END 2019-10-01 09:45 | disposition home or self-care (01) ==
LOC: FECT 05:36
PROVIDERS: ATTEND Psychiatry & Neurology Psychiatry
PROC: GZB4ZZZ Other Electroconvulsive Therapy (ICD-10-PCS; principal; 2019-10-01 07:00)
DX: F25.1 Schizoaffective disorder, depressive type (principal)
CPT/HCPCS: 36415; 80053; 85027; 90870; 93005; 94760

== ENCOUNTER 2019-10-28 05:43 | Day surgery (SDC) | payer OTHER ==
[2019-10-28] MEDS ORDERED: LACTATED RINGERS SOLUTION 1,000 ML IV SCH (07:00)
[2019-10-28 07:16] VITALS: BMI 25.7
[2019-10-28] MEDS ORDERED: KETAMINE HCL 500 MG/10 ML VIAL ONE (08:03)
[2019-10-28 09:53] VITALS: TEMP 98
[2019-10-28 11:13] VITALS: BP 145/85; PULSE 82
--- NOTE | 2019-11-05 17:21 | HP ---
CHIEF COMPLAINT: Major depressive disorder PCP: Nirav Ashraf Primary Psychiatrist: BELINDA Varela [facility] Donor Support Technician: Ifeoma Keane HISTORY OF PRESENT ILLNESS: 57 year-old male with a PMH significant for HTN, HLD, polycystic kidney disease , hypothyroidism, and major depressive disorder. Patient has been undergoing ECT since 2004. He presents today for ECT. Recent Events: * none reported PAST MEDICAL HISTORY: Hypertension Hyperlipidemia Polycystic kidney disease Hypothyroidism PAST SURGICAL HISTORY: Parathyroidectomy (2012) Social History: Smoking: never Alcohol: no Drugs: no Family history: non-contributory Allergies propranolol HCl [From Inderal [place]] Allergy (Severe, Verified 06/10/19 13:14) Difficulty Breathing clozapine [From Clozaril] Allergy (Intermediate, Verified 06/10/19 13:14) Difficulty Breathing Penicillins Allergy (Intermediate, Verified 06/10/19 13:14) Rash HOME MEDICATIONS: Home Medications Medication Instructions Recorded Fluphenazine HCl [Prolixin -] 5 mg PO HS 03/15/13 Levothyroxine [Synthroid -] 50 mcg PO DAILY 03/15/13 Olanzapine [Zyprexa] 30 mg PO HS 03/15/13 Quetiapine Fumarate [Seroquel -] 400 mg PO DAILY 03/15/13 Quetiapine Fumarate [Seroquel -] 600 mg PO HS 03/15/13 Rosuvastatin Calcium [Crestor] 10 mg PO HS 03/15/13 Losartan Potassium [Cozaar] 25 mg PO HS 04/20/17 Cholecalciferol (Vitamin D3) 1,000 unit PO HS 01/24/19 [Vitamin D3] REVIEW OF SYSTEMS CONSTITUTIONAL: Absent: fever, chills, diaphoresis, generalized weakness, malaise, loss of appetite, weight change HEENT: Absent: rhinorrhea, nasal congestion, throat pain, throat swelling, difficulty swallowing, mouth swelling, ear pain, eye pain, visual changes CARDIOVASCULAR: Absent: chest pain, syncope, palpitations, irregular heart rate, lightheadedness , peripheral edema RESPIRATORY: Absent: cough, shortness of breath, dyspnea with exertion, orthopnea, wheezing, stridor, hemoptysis GASTROINTESTINAL: Absent: abdominal pain, abdominal distension, nausea, vomiting, diarrhea, constipation, melena, hematochezia GENITOURINARY: Absent: dysuria, frequency, urgency, hesitancy, hematuria, flank pain, genital pain MUSCULOSKELETAL: Absent: myalgia, arthralgia, joint swelling, back pain, neck pain SKIN: Absent: rash, itching, pallor HEMATOLOGIC/IMMUNOLOGIC: Absent: easy bleeding, easy bruising, lymphadenopathy, frequent infections ENDOCRINE: Absent: unexplained weight gain, unexplained weight loss, heat intolerance, cold intolerance NEUROLOGIC: Absent: headache, focal weakness or paresthesias, dizziness, unsteady gait, seizure, mental status changes, bladder or bowel incontinence PHYSICAL EXAMINATION Vital Signs Temperature 98 F 10/28/19 10:30 Pulse Rate 82 10/28/19 10:30 Respiratory Rate 18 10/28/19 10:30 Blood Pressure 145/85 10/28/19 10:30 O2 Sat by Pulse Oximetry (%) 98 10/28/19 10:15 GENERAL: Awake, alert, and fully oriented, in no acute distress. HEAD: Normal with no signs of trauma. EYES: Pupils equal, round and reactive to light, sclera anicteric, conjunctiva clear. LUNGS: Breath sounds equal, clear to auscultation bilaterally. No wheezes, and no crackles. No accessory muscle use. HEART: Regular rate and rhythm, normal S1 and S2 ABDOMEN: Soft, nontender, not distended MUSCULOSKELETAL: Normal range of motion at all joints. No bony deformities or tenderness. No CVA tenderness. UPPER EXTREMITIES: 2+ pulses, warm, well-perfused. No cyanosis. No clubbing. No peripheral edema. LOWER EXTREMITIES: 2+ pulses, warm, well-perfused. No calf tenderness. No peripheral edema. NEUROLOGICAL: Cranial nerves II-XII intact. Normal speech. ASSESSMENT/PLAN: 57 year-old male with a PMH significant for HTN, HLD, polycystic kidney disease , hypothyroidism, and major depressive disorder. He presents today for ECT. Cardiac --Hypertension: BP stable on current meds --Revised Cardiac Risk Index for Pre-Operative Risk: 0 points, 0.4% risk of major cardiac event Pulmonary --no pulmonary history Neurological --no neurological or neurosurgical history; no history of trauma Anesthesia --no reported problems with anesthesia ECT is a low risk procedure. The relative benefits of the planned procedure outweigh the relative risks for this patient at this time. Visit type - Emergency Visit Emergency Visit: No - New Patient This patient is new to me today: Yes Date on this admission: 11/05/19 - Critical Care Critical Care patient: No
== END 2019-10-28 10:30 | disposition home or self-care (01) ==
LOC: FECT 05:43
PROVIDERS: ATTEND Psychiatry & Neurology Psychiatry
PROC: GZB4ZZZ Other Electroconvulsive Therapy (ICD-10-PCS; principal; 2019-10-28 07:30)
DX: F25.1 Schizoaffective disorder, depressive type (principal)
CPT/HCPCS: 90870; 94760

== ENCOUNTER 2019-11-26 05:38 | Day surgery (SDC) | payer OTHER ==
[2019-11-26 07:04] VITALS: TEMP 98.4; BMI 25.7
[2019-11-26 08:49] VITALS: BP 144/84; PULSE 92
--- NOTE | 2019-11-26 19:19 | HP ---
CHIEF COMPLAINT: Major depressive disorder PCP: Nirav Ashraf Primary Psychiatrist: BELINDA Varela [facility] Hydro[employer] Braze Furnace Operator: Ifeoma Keane HISTORY OF PRESENT ILLNESS: 57 year-old male with a PMH significant for HTN, HLD, polycystic kidney disease , hypothyroidism, and major depressive disorder. Patient has been undergoing ECT since 2004. He presents today for ECT. Recent Events: * none reported PAST MEDICAL HISTORY: Hypertension Hyperlipidemia Polycystic kidney disease Hypothyroidism PAST SURGICAL HISTORY: Parathyroidectomy (2012) Social History: Smoking: never Alcohol: no Drugs: no Family history: non-contributory Allergies propranolol HCl [From Inderal LA] Allergy (Severe, Verified 06/10/19 13:14) Difficulty Breathing clozapine [From Clozaril] Allergy (Intermediate, Verified 06/10/19 13:14) Difficulty Breathing Penicillins Allergy (Intermediate, Verified 06/10/19 13:14) Rash HOME MEDICATIONS: Home Medications Medication Instructions Recorded Fluphenazine HCl [Prolixin -] 5 mg PO HS 03/15/13 Levothyroxine [Synthroid -] 50 mcg PO DAILY 03/15/13 Olanzapine [Zyprexa] 30 mg PO HS 03/15/13 Quetiapine Fumarate [Seroquel -] 400 mg PO DAILY 03/15/13 Quetiapine Fumarate [Seroquel -] 600 mg PO HS 03/15/13 Rosuvastatin Calcium [Crestor] 10 mg PO HS 03/15/13 Losartan Potassium [Cozaar] 25 mg PO HS 04/20/17 Cholecalciferol (Vitamin D3) 1,000 unit PO HS 01/24/19 [Vitamin D3] REVIEW OF SYSTEMS CONSTITUTIONAL: Absent: fever, chills, diaphoresis, generalized weakness, malaise, loss of appetite, weight change HEENT: Absent: rhinorrhea, nasal congestion, throat pain, throat swelling, difficulty swallowing, mouth swelling, ear pain, eye pain, visual changes CARDIOVASCULAR: Absent: chest pain, syncope, palpitations, irregular heart rate, lightheadedness , peripheral edema RESPIRATORY: Absent: cough, shortness of breath, dyspnea with exertion, orthopnea, wheezing, stridor, hemoptysis GASTROINTESTINAL: Absent: abdominal pain, abdominal distension, nausea, vomiting, diarrhea, constipation, melena, hematochezia GENITOURINARY: Absent: dysuria, frequency, urgency, hesitancy, hematuria, flank pain, genital pain MUSCULOSKELETAL: Absent: myalgia, arthralgia, joint swelling, back pain, neck pain SKIN: Absent: rash, itching, pallor HEMATOLOGIC/IMMUNOLOGIC: Absent: easy bleeding, easy bruising, lymphadenopathy, frequent infections ENDOCRINE: Absent: unexplained weight gain, unexplained weight loss, heat intolerance, cold intolerance NEUROLOGIC: Absent: headache, focal weakness or paresthesias, dizziness, unsteady gait, seizure, mental status changes, bladder or bowel incontinence PHYSICAL EXAMINATION Vital Signs - 24 hr 11/26/19 11/26/19 11/26/19 07:01 08:00 08:05 Temperature 98.4 F Pulse Rate 98 H 99 H 100 H Respiratory 18 16 14 Rate Blood Pressure 146/86 135/86 140/89 O2 Sat by Pulse 98 100 100 Oximetry (%) 11/26/19 11/26/19 11/26/19 08:10 08:15 08:20 Temperature 98.4 F Pulse Rate 95 H 94 H 98 H Respiratory 18 18 18 Rate Blood Pressure 140/89 139/96 146/84 O2 Sat by Pulse 100 100 100 Oximetry (%) 11/26/19 11/26/19 08:48 08:49 Temperature 98.4 F 98.4 F Pulse Rate 92 H 92 H Respiratory 18 18 Rate Blood Pressure 144/84 144/84 O2 Sat by Pulse 100 Oximetry (%) GENERAL: Awake, alert, and fully oriented, in no acute distress. HEAD: Normal with no signs of trauma. EYES: Pupils equal, round and reactive to light, sclera anicteric, conjunctiva clear. LUNGS: Breath sounds equal, clear to auscultation bilaterally. No wheezes, and no crackles. No accessory muscle use. HEART: Regular rate and rhythm, normal S1 and S2 ABDOMEN: Soft, nontender, not distended MUSCULOSKELETAL: Normal range of motion at all joints. No bony deformities or tenderness. No CVA tenderness. UPPER EXTREMITIES: 2+ pulses, warm, well-perfused. No cyanosis. No clubbing. No peripheral edema. LOWER EXTREMITIES: 2+ pulses, warm, well-perfused. No calf tenderness. No peripheral edema. NEUROLOGICAL: Cranial nerves II-XII intact. Normal speech. ASSESSMENT/PLAN: 57 year-old male with a PMH significant for HTN, HLD, polycystic kidney disease , hypothyroidism, and major depressive disorder. He presents today for ECT. Cardiac --Hypertension: BP stable on current meds --Revised Cardiac Risk Index for Pre-Operative Risk: 0 points, 0.4% risk of major cardiac event Pulmonary --no pulmonary history Neurological --no neurological or neurosurgical history; no history of trauma Anesthesia --no reported problems with anesthesia ECT is a low risk procedure. The relative benefits of the planned procedure outweigh the relative risks for this patient at this time. Visit type - Emergency Visit Emergency Visit: No - New Patient This patient is new to me today: Yes Date on this admission: 11/28/19 - Critical Care Critical Care patient: No
== END 2019-11-26 08:52 | disposition home or self-care (01) ==
LOC: FECT 05:38
PROVIDERS: ATTEND Psychiatry & Neurology Psychiatry
PROC: GZB4ZZZ Other Electroconvulsive Therapy (ICD-10-PCS; principal; 2019-11-26 07:00)
DX: F25.1 Schizoaffective disorder, depressive type (principal)
CPT/HCPCS: 90870; 94760

== ENCOUNTER 2019-12-24 05:34 | Day surgery (SDC) | payer OTHER ==
[2019-12-24 06:49] VITALS: BMI 25.7
[2019-12-24] MEDS ORDERED: ONDANSETRON 4 MG/2 ML VIAL IVPUSH PRN ×2 (06:56→06:57)
[2019-12-24] MEDS ORDERED: LACTATED RINGERS SOLUTION 1,000 ML IV SCH ×2 (07:00)
[2019-12-24 07:59] VITALS: TEMP 97.8
[2019-12-24 08:17] VITALS: BP 137/82; PULSE 87
--- NOTE | 2019-12-24 08:18 | HP ---
CHIEF COMPLAINT: Major depressive disorder PCP: Nirav Ashraf Primary Psychiatrist: BELINDA Varela [facility] Crane Rigger: Ifeoma Keane HISTORY OF PRESENT ILLNESS: 57 year-old male with a PMH significant for HTN, HLD, polycystic kidney disease , hypothyroidism, and major depressive disorder. Patient has been undergoing ECT since 2004. He presents today for ECT. Recent Events: * none reported PAST MEDICAL HISTORY: Hypertension Hyperlipidemia Polycystic kidney disease Hypothyroidism PAST SURGICAL HISTORY: Parathyroidectomy (2012) Social History: Smoking: never Alcohol: no Drugs: no Family history: non-contributory Allergies propranolol HCl [From Inderal LA] Allergy (Severe, Verified 06/10/19 13:14) Difficulty Breathing clozapine [From Clozaril] Allergy (Intermediate, Verified 06/10/19 13:14) Difficulty Breathing Penicillins Allergy (Intermediate, Verified 06/10/19 13:14) Rash HOME MEDICATIONS: Home Medications Medication Instructions Recorded Fluphenazine HCl [Prolixin -] 5 mg PO HS 03/15/13 Levothyroxine [Synthroid -] 50 mcg PO DAILY 03/15/13 Olanzapine [Zyprexa] 30 mg PO HS 03/15/13 Quetiapine Fumarate [Seroquel -] 400 mg PO DAILY 03/15/13 Quetiapine Fumarate [Seroquel -] 600 mg PO HS 03/15/13 Rosuvastatin Calcium [Crestor] 10 mg PO HS 03/15/13 Losartan Potassium [Cozaar] 25 mg PO HS 04/20/17 Cholecalciferol (Vitamin D3) 1,000 unit PO HS 01/24/19 [Vitamin D3] Docusate Sodium [Dok] 100 mg PO BID 12/24/19 REVIEW OF SYSTEMS CONSTITUTIONAL: Absent: fever, chills, diaphoresis, generalized weakness, malaise, loss of appetite, weight change HEENT: Absent: rhinorrhea, nasal congestion, throat pain, throat swelling, difficulty swallowing, mouth swelling, ear pain, eye pain, visual changes CARDIOVASCULAR: Absent: chest pain, syncope, palpitations, irregular heart rate, lightheadedness , peripheral edema RESPIRATORY: Absent: cough, shortness of breath, dyspnea with exertion, orthopnea, wheezing, stridor, hemoptysis GASTROINTESTINAL: Absent: abdominal pain, abdominal distension, nausea, vomiting, diarrhea, constipation, melena, hematochezia GENITOURINARY: Absent: dysuria, frequency, urgency, hesitancy, hematuria, flank pain, genital pain MUSCULOSKELETAL: Absent: myalgia, arthralgia, joint swelling, back pain, neck pain SKIN: Absent: rash, itching, pallor HEMATOLOGIC/IMMUNOLOGIC: Absent: easy bleeding, easy bruising, lymphadenopathy, frequent infections ENDOCRINE: Absent: unexplained weight gain, unexplained weight loss, heat intolerance, cold intolerance NEUROLOGIC: Absent: headache, focal weakness or paresthesias, dizziness, unsteady gait, seizure, mental status changes, bladder or bowel incontinence PSYCHIATRIC: Absent: anxiety, depression, suicidal or homicidal ideation, hallucinations. PHYSICAL EXAMINATION Vital Signs - 24 hr 12/24/19 12/24/19 12/24/19 06:46 07:33 07:38 Temperature 98 F Pulse Rate 97 H 92 H 89 Respiratory 18 16 16 Rate Blood Pressure 135/76 135/81 131/80 O2 Sat by Pulse 98 99 99 Oximetry (%) 12/24/19 12/24/19 12/24/19 07:43 07:48 07:50 Temperature 97.8 F Pulse Rate 88 88 86 Respiratory 16 16 16 Rate Blood Pressure 137/79 133/81 133/85 O2 Sat by Pulse 100 99 99 Oximetry (%) 12/24/19 08:16 Temperature Pulse Rate 87 Respiratory 18 Rate Blood Pressure 137/82 O2 Sat by Pulse 97 Oximetry (%) GENERAL: Awake, alert, and fully oriented, in no acute distress. HEAD: Normal with no signs of trauma. EYES: Pupils equal, round and reactive to light, extraocular movements intact, sclera anicteric, conjunctiva clear. No lid lag. EARS, NOSE, THROAT: Ears normal, nares patent, oropharynx clear without exudates. Moist mucous membranes. NECK: Normal range of motion, supple without lymphadenopathy, JVD, or masses. LUNGS: Breath sounds equal, clear to auscultation bilaterally. No wheezes, and no crackles. No accessory muscle use. HEART: Regular rate and rhythm, normal S1 and S2 without murmur, rub or gallop. ABDOMEN: Soft, nontender, not distended, normoactive bowel sounds, no guarding, no rebound, no masses. No hepatomegaly or splenomegaly. MUSCULOSKELETAL: Normal range of motion at all joints. No bony deformities or tenderness. No CVA tenderness. UPPER EXTREMITIES: 2+ pulses, warm, well-perfused. No cyanosis. No clubbing. No peripheral edema. LOWER EXTREMITIES: 2+ pulses, warm, well-perfused. No calf tenderness. No peripheral edema. NEUROLOGICAL: Cranial nerves II-XII intact. Normal speech. Normal gait. PSYCHIATRIC: Cooperative. Good eye contact. Appropriate mood and affect. SKIN: Warm, dry, normal turgor, no rashes or lesions noted, normal capillary refill. ASSESSMENT/PLAN: 57 year-old male with a PMH significant for HTN, HLD, polycystic kidney disease , hypothyroidism, and major depressive disorder. He presents today for ECT. Cardiac --Hypertension: BP stable on current meds --Revised Cardiac Risk Index for Pre-Operative Risk: 0 points, 0.4% risk of major cardiac event Pulmonary --no pulmonary history Neurological --no neurological or neurosurgical history; no history of trauma Anesthesia --no reported problems with anesthesia ECT is a low risk procedure. The relative benefits of the planned procedure outweigh the relative risks for this patient at this time. Visit type - Emergency Visit Emergency Visit: No - New Patient This patient is new to me today: Yes Date on this admission: 12/24/19 - Critical Care Critical Care patient: No
== END 2019-12-24 08:20 | disposition home or self-care (01) ==
LOC: FECT 05:34
PROVIDERS: ATTEND Psychiatry & Neurology Psychiatry
PROC: GZB4ZZZ Other Electroconvulsive Therapy (ICD-10-PCS; principal; 2019-12-24 07:00)
DX: F25.9 Schizoaffective disorder, unspecified (principal)
CPT/HCPCS: 90870; 94760

== ENCOUNTER 2020-05-07 07:52 | Day surgery (SDC) | payer OTHER ==
[2020-05-07 08:39] LABS: BASO % 1.8 % (0-2.0); HEMATOCRIT 40.9 % (35.4-49); HEMOGLOBIN 13.7 GM/dl (11.7-16.9); LYMPH % 19.7 % (8-40); MCH 30.3 pg (25.7-33.7); MCHC 33.5 g/dl (32.0-35.9); MEAN CELL VOLUME 90.5 fl (80-96); MEAN PLT VOLUME 12.9 fl (7.5-11.1); MONO % 11.4 % (3.8-10.2); NEUT % 66.1 % (42.8-82.8); PLATELET COUNT 137 K/MM3 (134-434); RBC 4.52 M/mm3 (4.00-5.60); RDW 13.7 % (11.9-15.9); WHITE BLOOD COUNT 5.5 K/mm3 (4.0-10.8)
[2020-05-07 08:51] VITALS: BMI 25.9
--- NOTE | 2020-05-07 08:59 | HP ---
CHIEF COMPLAINT: Major depressive disorder PCP: Nirav Ashraf Primary Psychiatrist: BELINDA Varela, [facility] Payment Specialist: Ifeoma Keane HISTORY OF PRESENT ILLNESS: 57 year-old male with a PMH significant for HTN, HLD, polycystic kidney disease, hypothyroidism, and major depressive disorder. Patient has been undergoing ECT since 2004. His last treatment here was on 12/24/19, prior to the COVID hiatus. In early February he was hospitalized at [facility] and had six ECT treatments. His last treatment there was on 02/17/20. He presents today for ECT. Recent Events: * hospitalized [facility] February 2020 for 2 weeks * Prolixin dc'd; Olanzapine, seroquel doses increased PAST MEDICAL HISTORY: Hypertension Hyperlipidemia Polycystic kidney disease Hypothyroidism PAST SURGICAL HISTORY: Parathyroidectomy (2012) Social History: Smoking: never Alcohol: no Drugs: no Family history: non-contributory Allergies propranolol HCl [From Inderal LA] Allergy (Severe, Verified 05/07/20 08:37) Difficulty Breathing clozapine [From Clozaril] Allergy (Intermediate, Verified 05/07/20 08:37) Difficulty Breathing Penicillins Allergy (Intermediate, Verified 05/07/20 08:37) Rash HOME MEDICATIONS: Home Medications Medication Instructions Recorded Levothyroxine [Synthroid -] 50 mcg PO DAILY 03/15/13 Olanzapine [Zyprexa] 40 mg PO HS 03/15/13 Quetiapine Fumarate [Seroquel -] 300 mg PO DAILY 03/15/13 Quetiapine Fumarate [Seroquel -] 500 mg PO HS 03/15/13 Rosuvastatin Calcium [Crestor] 10 mg PO HS 03/15/13 Losartan Potassium [Cozaar] 25 mg PO HS 04/20/17 Cholecalciferol (Vitamin D3) 1,000 unit PO HS 01/24/19 [Vitamin D3] REVIEW OF SYSTEMS CONSTITUTIONAL: Absent: fever, chills, diaphoresis, generalized weakness, malaise, loss of appetite, weight change HEENT: Absent: rhinorrhea, nasal congestion, throat pain, throat swelling, difficulty swallowing, mouth swelling, ear pain, eye pain, visual changes CARDIOVASCULAR: Absent: chest pain, syncope, palpitations, irregular heart rate, lightheadedness, peripheral edema RESPIRATORY: Absent: cough, shortness of breath, dyspnea with exertion, orthopnea, wheezing, stridor, hemoptysis GASTROINTESTINAL: Absent: abdominal pain, abdominal distension, nausea, vomiting, diarrhea, constipation, melena, hematochezia GENITOURINARY: Absent: dysuria, frequency, urgency, hesitancy, hematuria, flank pain, genital pain MUSCULOSKELETAL: Absent: myalgia, arthralgia, joint swelling, back pain, neck pain SKIN: Absent: rash, itching, pallor HEMATOLOGIC/IMMUNOLOGIC: Absent: easy bleeding, easy bruising, lymphadenopathy, frequent infections ENDOCRINE: Absent: unexplained weight gain, unexplained weight loss, heat intolerance, cold intolerance NEUROLOGIC: Absent: headache, focal weakness or paresthesias, dizziness, unsteady gait, seizure, mental status changes, bladder or bowel incontinence PHYSICAL EXAMINATION Vital Signs - 24 hr 05/07/20 08:40 Temperature 98.3 F Pulse Rate 94 H Respiratory 20 Rate Blood Pressure 129/81 O2 Sat by Pulse 98 Oximetry (%) GENERAL: Awake, alert, and fully oriented, in no acute distress. HEAD: Normal with no signs of trauma. EYES: Pupils equal, round and reactive to light, sclera anicteric, conjunctiva clear. LUNGS: Breath sounds equal, clear to auscultation bilaterally. No wheezes, and no crackles. No accessory muscle use. HEART: Regular rate and rhythm, normal S1 and S2 ABDOMEN: Soft, nontender, not distended MUSCULOSKELETAL: Normal range of motion at all joints. No bony deformities or tenderness. No CVA tenderness. UPPER EXTREMITIES: 2+ pulses, warm, well-perfused. No cyanosis. No clubbing. No peripheral edema. LOWER EXTREMITIES: 2+ pulses, warm, well-perfused. No calf tenderness. No perip heral edema. NEUROLOGICAL: Cranial nerves II-XII intact. Normal speech. Laboratory Results - last 24 hr 05/07/20 08:19 WBC 5.5 RBC 4.52 Hgb 13.7 Hct 40.9 MCV 90.5 MCH 30.3 MCHC 33.5 RDW 13.7 Plt Count 137 D MPV 12.9 H D Absolute Neuts (auto) 3.6 Neutrophils % 66.1 Lymphocytes % 19.7 Monocytes % 11.4 H Eosinophils % 1.0 Basophils % 1.8 D ASSESSMENT/PLAN: 57 year-old male with a PMH significant for HTN, HLD, polycystic kidney disease, hypothyroidism, and major depressive disorder. He presents today for ECT. Cardiac --Hypertension: BP stable on current meds --Revised Cardiac Risk Index for Pre-Operative Risk: 0 points, 0.4% risk of major cardiac event Pulmonary --no pulmonary history Neurological --no neurological or neurosurgical history; no history of trauma Anesthesia --no reported problems with anesthesia ECT is a low risk procedure. The relative benefits of the planned procedure outweigh the relative risks for this patient at this time. Visit type - Emergency Visit Emergency Visit: No - New Patient This patient is new to me today: Yes Date on this admission: 05/07/20 - Critical Care Critical Care patient: No
[2020-05-07 09:50] LABS: ALBUMIN 4.5 g/dl (3.4-5.0); BILIRUBIN,TOTAL 0.8 mg/dl (0.2-1); CALCIUM 9.2 mg/dl (8.5-10); CREATININE 1.5 mg/dl (0.55-1.3); TOT PROT 6.9 g/dl (6.4-8.2)
[2020-05-07] MEDS ORDERED: PROPOFOL 20 ML ONE (10:18)
[2020-05-07] MEDS ORDERED: ONDANSETRON 4 MG/2 ML VIAL ONE (10:19)
[2020-05-07] MEDS ORDERED: KETAMINE HCL 500 MG/10 ML VIAL ONE (10:19)
[2020-05-07] MEDS ORDERED: SUCCINYLCHOLINE CHLORIDE 200 MG/10 ML SYRINGE ONE (10:19)
[2020-05-07] MEDS ORDERED: DEXAMETHASONE SOD PHOSPHATE 4 MG/1 ML VIAL ONE (10:19)
[2020-05-07] MEDS ORDERED: KETOROLAC TROMETHAMINE 30 MG/1 ML VIAL ONE (10:19)
[2020-05-07 11:36] VITALS: TEMP 98.7
[2020-05-07 11:44] VITALS: BP 145/91; PULSE 84
--- NOTE | 2020-05-07 14:08 | EKG ---
Test Reason : Blood Pressure : / mmHG Vent. Rate : 090 BPM Atrial Rate : 090 BPM P-R Int : 170 ms QRS Dur : 092 ms QT Int : 358 ms P-R-T Axes : 059 -17 042 degrees QTc Int : 437 ms NORMAL SINUS RHYTHM NORMAL ECG WHEN COMPARED WITH ECG OF 01-OCT-2019 07:42, NO SIGNIFICANT CHANGE WAS FOUND Confirmed by MILENA ALVES MD ([id number]) on 05/07/2020 2:07:51 PM Referred By: Confirmed By:MILENA ALVES MD
== END 2020-05-07 11:45 | disposition home or self-care (01) ==
LOC: FECT 07:52
PROVIDERS: ATTEND Psychiatry & Neurology Psychiatry
PROC: GZB4ZZZ Other Electroconvulsive Therapy (ICD-10-PCS; principal; 2020-05-07 10:00)
DX: F25.9 Schizoaffective disorder, unspecified (principal)
CPT/HCPCS: 36415; 80053; 83735; 85025; 90870; 93005; 94760

== ENCOUNTER 2020-05-21 08:25 | Day surgery (SDC) | payer OTHER ==
[2020-05-13 10:18] VITALS: BMI 25.9
[2020-05-21] MEDS ORDERED: PROPOFOL 20 ML ONE (09:26)
[2020-05-21] MEDS ORDERED: SUCCINYLCHOLINE CHLORIDE 200 MG/10 ML SYRINGE ONE (09:26)
[2020-05-21] MEDS ORDERED: ONDANSETRON 4 MG/2 ML VIAL ONE (09:28)
[2020-05-21 10:44] VITALS: TEMP 98.1
[2020-05-21 13:40] VITALS: BP 132/84; PULSE 78
== END 2020-05-21 11:10 | disposition home or self-care (01) ==
LOC: FECT 08:25
PROVIDERS: ATTEND Psychiatry & Neurology Psychiatry
PROC: GZB4ZZZ Other Electroconvulsive Therapy (ICD-10-PCS; principal; 2020-05-21 09:30)
DX: F25.9 Schizoaffective disorder, unspecified (principal)
CPT/HCPCS: 90870; 94760

== ENCOUNTER 2020-06-04 05:52 | Day surgery (SDC) | payer OTHER ==
[2020-06-04 06:44] VITALS: BMI 27.1
[2020-06-04] MEDS ORDERED: ONDANSETRON 4 MG/2 ML VIAL ONE (07:10)
[2020-06-04] MEDS ORDERED: PROPOFOL 20 ML ONE (07:18)
[2020-06-04 07:51] VITALS: TEMP 97.6
[2020-06-04 08:13] VITALS: BP 126/82; PULSE 74
== END 2020-06-04 08:17 | disposition home or self-care (01) ==
LOC: FECT 05:52 → FASU 05:52
PROVIDERS: ATTEND Psychiatry & Neurology Psychiatry
PROC: GZB4ZZZ Other Electroconvulsive Therapy (ICD-10-PCS; principal; 2020-06-04 07:00)
DX: F25.9 Schizoaffective disorder, unspecified (principal)
CPT/HCPCS: 90870; 94760

== ENCOUNTER 2020-06-18 06:48 | Day surgery (SDC) | payer OTHER ==
[2020-06-10 07:10] VITALS: BMI 25.8
--- NOTE | 2020-06-18 07:50 | HP ---
CHIEF COMPLAINT: Major depressive disorder PCP: Nirav Ashraf Primary Psychiatrist: BELINDA Varela, [facility] Data Processing Operator: Ifeoma Keane HISTORY OF PRESENT ILLNESS: 57 year-old male with a PMH significant for HTN, HLD, polycystic kidney disease, hypothyroidism, and major depressive disorder. Patient has been undergoing ECT since 2004. In early February, during the COVID hiatus, he was hospitalized at [facility]. He presents today for ECT. Recent Events: * none reported PAST MEDICAL HISTORY: Hypertension Hyperlipidemia Polycystic kidney disease Hypothyroidism PAST SURGICAL HISTORY: Parathyroidectomy (2012) Social History: Smoking: never Alcohol: no Drugs: no Family history: non-contributory Allergies propranolol HCl [From Inderal LA] Allergy (Severe, Verified 05/27/20 11:09) Difficulty Breathing clozapine [From Clozaril] Allergy (Intermediate, Verified 05/27/20 11:09) Difficulty Breathing Penicillins Allergy (Intermediate, Verified 05/27/20 11:09) Rash HOME MEDICATIONS: Home Medications Medication Instructions Recorded Levothyroxine [Synthroid -] 50 mcg PO DAILY 03/15/13 Olanzapine [Zyprexa] 40 mg PO HS 03/15/13 Quetiapine Fumarate [Seroquel -] 300 mg PO DAILY 03/15/13 Quetiapine Fumarate [Seroquel -] 500 mg PO HS 03/15/13 Rosuvastatin Calcium [Crestor] 10 mg PO HS 03/15/13 Losartan Potassium [Cozaar] 25 mg PO HS 04/20/17 Cholecalciferol (Vitamin D3) 1,000 unit PO HS 01/24/19 [Vitamin D3] REVIEW OF SYSTEMS CONSTITUTIONAL: Absent: fever, chills, diaphoresis, generalized weakness, malaise, loss of appetite, weight change HEENT: Absent: rhinorrhea, nasal congestion, throat pain, throat swelling, difficulty swallowing, mouth swelling, ear pain, eye pain, visual changes CARDIOVASCULAR: Absent: chest pain, syncope, palpitations, irregular heart rate, lighth eadedness, peripheral edema RESPIRATORY: Absent: cough, shortness of breath, dyspnea with exertion, orthopnea, wheezing, stridor, hemoptysis GASTROINTESTINAL: Absent: abdominal pain, abdominal distension, nausea, vomiting, diarrhea, constipation, melena, hematochezia GENITOURINARY: Absent: dysuria, frequency, urgency, hesitancy, hematuria, flank pain, genital pain MUSCULOSKELETAL: Absent: myalgia, arthralgia, joint swelling, back pain, neck pain SKIN: Absent: rash, itching, pallor HEMATOLOGIC/IMMUNOLOGIC: Absent: easy bleeding, easy bruising, lymphadenopathy, frequent infections ENDOCRINE: Absent: unexplained weight gain, unexplained weight loss, heat intolerance, cold intolerance NEUROLOGIC: Absent: headache, focal weakness or paresthesias, dizziness, unsteady gait, seizure, mental status changes, bladder or bowel incontinence PHYSICAL EXAMINATION Vital Signs Temperature 98.5 F 06/18/20 10:15 Pulse Rate 72 06/18/20 10:15 Respiratory Rate 18 06/18/20 10:15 Blood Pressure 133/89 06/18/20 10:15 O2 Sat by Pulse Oximetry (%) 97 06/18/20 10:10 GENERAL: Awake, alert, and fully oriented, in no acute distress. HEAD: Normal with no signs of trauma. EYES: Pupils equal, round and reactive to light, sclera anicteric, conjunctiva clear. LUNGS: Breath sounds equal, clear to auscultation bilaterally. No wheezes, and no crackles. No accessory muscle use. HEART: Regular rate and rhythm, normal S1 and S2 ABDOMEN: Soft, nontender, not distended MUSCULOSKELETAL: Normal range of motion at all joints. No bony deformities or tenderness. No CVA tenderness. UPPER EXTREMITIES: 2+ pulses, warm, well-perfused. No cyanosis. No clubbing. No peripheral edema. LOWER EXTREMITIES: 2+ pulses, warm, well-perfused. No calf tenderness. No peripheral edema. NEUROLOGICAL: Cranial nerves II-XII intact. Normal speech. ASSESSMENT/PLAN: 57 year-old male with a PMH significant for HTN, HLD, polycystic kidney disease, hypothyroidism, and major depressive disorder. He presents today for ECT. Cardiac --Hypertension: BP stable on current meds --Revised Cardiac Risk Index for Pre-Operative Risk: 0 points, 0.4% risk of major cardiac event Pulmonary --no pulmonary history Neurological --no neurological or neurosurgical history; no history of trauma Anesthesia --no reported problems with anesthesia ECT is a low risk procedure. The relative benefits of the planned procedure outweigh the relative risks for this patient at this time. Visit type - Emergency Visit Emergency Visit: No - New Patient This patient is new to me today: Yes Date on this admission: 06/18/20 - Critical Care Critical Care patient: No
[2020-06-18] MEDS ORDERED: PROPOFOL 20 ML ONE ×2 (09:00→09:06)
[2020-06-18 09:51] VITALS: TEMP 98.5
[2020-06-18 10:09] VITALS: BP 133/89; PULSE 72
== END 2020-06-18 10:15 | disposition home or self-care (01) ==
LOC: FECT 06:48
PROVIDERS: ATTEND Psychiatry & Neurology Psychiatry
PROC: GZB4ZZZ Other Electroconvulsive Therapy (ICD-10-PCS; principal; 2020-06-18 08:30)
DX: F25.9 Schizoaffective disorder, unspecified (principal)
CPT/HCPCS: 90870; 94760

== ENCOUNTER 2020-07-16 07:09 | Day surgery (SDC) | payer OTHER ==
[2020-07-16 07:49] VITALS: BMI 25.1
[2020-07-16] MEDS ORDERED: SUCCINYLCHOLINE CHLORIDE 200 MG/10 ML SYRINGE ONE (09:00)
[2020-07-16] MEDS ORDERED: PROPOFOL 20 ML ONE (09:00)
[2020-07-16] MEDS ORDERED: ONDANSETRON 4 MG/2 ML VIAL ONE (09:01)
[2020-07-16 10:00] VITALS: TEMP 98.3
[2020-07-16 10:03] VITALS: BP 145/90; PULSE 85
--- NOTE | 2020-07-16 15:01 | HP ---
CHIEF COMPLAINT: Major depressive disorder PCP: Nirav Goldmsith Primary Psychiatrist: varnishing unit operator Lizbeth Lerma, [facility] Pugger Helper: Nirav Maharaj HISTORY OF PRESENT ILLNESS: 59 year-old male with a PMH significant for HTN, HLD, polycystic kidney disease, hypothyroidism, and major depressive disorder. Patient has been undergoing ECT since 2004. Recent Events: February 2020 psych admission to [facility] today he reports two weeks of lower back pain, which has been gradually improving PAST MEDICAL HISTORY: Hypertension Hyperlipidemia Polycystic kidney disease Hypothyroidism PAST SURGICAL HISTORY: Parathyroidectomy (2012) Social History: Smoking:denies Alcohol:denies Drugs: denies Family Hx: Mother alive (86) well Father (76) h/o prostate cancer and [place], from pancreatic cancer Brother alive (58) well Allergies propranolol HCl [From Inderal LA] Allergy (Severe, Verified 07/16/20 07:43) Difficulty Breathing clozapine [From Clozaril] Allergy (Intermediate, Verified 07/16/20 07:43) Difficulty Breathing Penicillins Allergy (Intermediate, Verified 07/16/20 07:43) Rash HOME MEDICATIONS: Home Medications Medication Instructions Recorded Levothyroxine [Synthroid -] 50 mcg PO DAILY 03/15/13 Olanzapine [Zyprexa] 40 mg PO HS 03/15/13 Quetiapine Fumarate [Seroquel -] 300 mg PO DAILY 03/15/13 Quetiapine Fumarate [Seroquel -] 500 mg PO HS 03/15/13 Rosuvastatin Calcium [Crestor] 10 mg PO HS 03/15/13 Losartan Potassium [Cozaar] 25 mg PO HS 04/20/17 Cholecalciferol (Vitamin D3) 1,000 unit PO HS 01/24/19 [Vitamin D3] REVIEW OF SYSTEMS CONSTITUTIONAL: Absent: fever, chills, diaphoresis, generalized weakness, malaise, loss of appetite, weight change HEENT: Absent: rhinorrhea, nasal congestion, throat pain, throat swelling, difficulty swallowing, mouth swelling, ear pain, eye pain, visual changes CARDIOVASCULAR: Absent: chest pain, syncope, palpitations, irregular heart rate, lightheadedness, peripheral edema RESPIRATORY: Absent: cough, shortness of breath, dyspnea with exertion, orthopnea, wheezing, stridor, hemoptysis GASTROINTESTINAL: Absent: abdominal pain, abdominal distension, nausea, vomiting, diarrhea, constipation, melena, hematochezia GENITOURINARY: Absent: dysuria, frequency, urgency, hesitancy, hematuria, flank pain, genital pain MUSCULOSKELETAL: Absent: myalgia, arthralgia, joint swelling, back pain, neck pain SKIN: Absent: rash, itching, pallor HEMATOLOGIC/IMMUNOLOGIC: Absent: easy bleeding, easy bruising, lymphadenopathy, frequent infections ENDOCRINE: Absent: unexplained weight gain, unexplained weight loss, heat intolerance, cold intolerance NEUROLOGIC: Absent: headache, focal weakness or paresthesias, dizziness, unsteady gait, seizure, mental status changes, bladder or bowel incontinence PHYSICAL EXAMINATION Vital Signs - 24 hr 07/16/20 07/16/20 07/16/20 07:45 09:15 09:20 Temperature 98.8 F Pulse Rate 86 81 80 Respiratory 16 19 14 Rate Blood Pressure 130/71 134/77 134/81 O2 Sat by Pulse 95 100 100 Oximetry (%) 07/16/20 07/16/20 07/16/20 09:25 09:30 09:40 Temperature 98.3 F Pulse Rate 78 79 82 Respiratory 12 12 20 Rate Blood Pressure 134/82 138/72 148/98 O2 Sat by Pulse 100 100 96 Oximetry (%) 07/16/20 10:00 Temperature Pulse Rate 85 Respiratory 20 Rate Blood Pressure 145/90 O2 Sat by Pulse 98 Oximetry (%) GENERAL: Awake, alert, and fully oriented, in no acute distress. HEAD: Normal with no signs of trauma. EYES: Pupils equal, round and reactive to light, sclera anicteric, conjunctiva clear. LUNGS: Breath sounds equal, clear to auscultation bilaterally. No wheezes, and no crackles. No accessory muscle use. HEART: Regular rate and rhythm, normal S1 and S2 ABDOMEN: Soft, nontender, not distended MUSCULOSKELETAL: Normal range of motion at all joints. No bony deformities or tenderness. No CVA tenderness. UPPER EXTREMITIES: 2+ pulses, warm, well-perfused. No cyanosis. No clubbing. No peripheral edema. LOWER EXTREMITIES: 2+ pulses, warm, well-perfused. No calf tenderness. No peripheral edema. NEUROLOGICAL: Cranial nerves II-XII intact. Normal speech. ASSESSMENT/PLAN: 59 year-old male with a PMH significant for HTN, HLD, polycystic kidney disease, hypothyroidism, and major depressive disorder whose symptoms are now mostly controlled with oral meds and ECT. Cardiac --no cardiac history --Revised Cardiac Risk Index for Pre-Operative Risk: 0 points, 0.4% risk of major cardiac event Pulmonary --no pulmonary history Neurological --no neurological or neurosurgical history; no history of trauma Anesthesia --no reported problems with anesthesia ECT is a low risk procedure. The relative benefits of the planned procedure outweigh the relative risks for this patient at this time. Problem List - Problem (1) MDD (major depressive disorder) Code(s): F32.9 - MAJOR DEPRESSIVE DISORDER, SINGLE EPISODE, UNSPECIFIED (2) Schizoaffective disorder Code(s): F25.9 - SCHIZOAFFECTIVE DISORDER, UNSPECIFIED Visit type - Emergency Visit Emergency Visit: No - New Patient This patient is new to me today: Yes Date on this admission: 07/16/20 - Critical Care Critical Care patient: No
== END 2020-07-16 10:00 | disposition home or self-care (01) ==
LOC: FECT 07:09
PROVIDERS: ATTEND Psychiatry & Neurology Psychiatry
PROC: GZB4ZZZ Other Electroconvulsive Therapy (ICD-10-PCS; principal; 2020-07-16 08:00)
DX: F25.9 Schizoaffective disorder, unspecified (principal)
CPT/HCPCS: 90870; 94760

== ENCOUNTER 2020-08-13 06:39 | Day surgery (SDC) | payer OTHER ==
--- OUTSIDE RECORDS SUMMARY | 2020-08-13 06:51 | XMS ---
:1960 Author Organization [facility] Support Name Relationship Address Phone UE Unavailable Unavailable Unavailable CLIFFORD SPAIN [address] [facility] [place] [address] CLIFFORD JAIN [address] [facility] [place] ( [phone] [place] [address] Re-disclosure Warning The records that you are about to access may contain information from federally- assisted alcohol or drug abuse programs. If such information is present, then the following federally mandated warning applies: This information has been disclosed to you from records protected by federal confidentiality rules (42 CFR part 2). The federal rules prohibit you from making any further disclosure of this information unless further disclosure is expressly permitted by the written consent of the person to whom it pertains or as otherwise permitted by 42 CFR part 2. A general authorization for the release of medical or other information is NOT sufficient for this purpose. The Federal rules restrict any use of the information to criminally investigate or prosecute any alcohol or drug abuse patient.The records that you are about to access may contain highly sensitive health information, the redisclosure of which is protected by Article 27-F of the [facility] Public Health law. If you continue you may haveaccess to information: Regarding HIV / AIDS; Provided by facilities licensed or operated by the [facility] Office of Mental Health; or Provided by the [facility] Office for People With Developmental Disabilities. If such information is present, then the following [facility] mandated warning applies: This information has been disclosed to you from confidential records which are protected by state law. State law prohibits you from making any further disclosure of this information without the specific written consent of the person to whom it pertains, or as otherwise permitted by law. Any unauthorized further disclosure in violation of state law may result in a fine or custodial sentence or both. A general authorization for the release of medical or other information is NOT sufficient authorization for further disclosure. Insurance Providers Payer name Policy type Policy ID Covered Covered libertarian's Policy P henry / Coverage libertarian ID relationship to [place] [employer] type [place] MEDICARE [id number] SP [id number] 17 7 MEDICAID [id number] SP [id number] MEDICARE [id number] SP [id number] 17 7 MEDICARE [id number] SP [id number] A Results ID Date Data Source [id number] 07/12/2020 01:00:00 PM EDT [facility] Name Value Range Interpretation Description Data Sup porting Code Source(s) Document(s ) SARS [facility] coronavirus 2 RNA This lab was ordered by FILIPPO ARTIS khan [facility] and reported by [facility]. ID Date Data Source [id number] 06/13/2020 11:00:00 AM EDT [facility] Name Value Range Interpretation Description Data Sup porting Code Source(s) Document(s ) SARS [facility] coronavirus 2 RNA This lab was ordered by FILIPPO [place]Alonzo khan [facility] and reported by [facility]. ID Date Data Source [id number] 06/01/2020 12:10:00 PM EDT [facility] Name Value Range Interpretation Description Data Sup porting Code Source(s) Document(s ) SARS [facility] coronavirus 2 RNA This lab was ordered by FILIPPO ARTIS khan [facility] and reported by [facility]. ID Date Data Source [id number] 05/18/2020 12:15:00 PM EDT [facility] Name Value Range Interpretation Description Data Sup porting Code Source(s) Document(s ) SARS [facility] coronavirus 2 RNA This lab was ordered by NonaboxAlonzo Villafana gerardo [facility] and reported by [facility]. ID Date Data Source [id number] 05/04/2020 01:15:00 PM EDT [facility] Name Value Range Interpretation Description Data Sup porting Code Source(s) Document(s ) SARS [facility] CORONAVIRUS 2 RNA This lab was ordered by FILIPPO MinyanvilleAlonzo khan [facility] and reported by [facility]. ID Date Data Source [id number] 02/12/2020 12:37:00 PM EDT [facility] Name Value Range Interpretation Description Data Sup porting Code Source(s) Document(s ) SARS [facility] Coronavirus 2 RNA Presence Respiratory Specimen ANALISA Probe Detection This lab was ordered by [place] and reported by [facility]. ID Date Data Source [id number] 02/07/2020 09:52:00 AM EDT [facility] Name Value Range Interpretation Description Data Sup porting Code Source(s) Document(s ) 2019 Novel [facility] Coronavirus RNA Interpretation Unspecified Specimen Qualitative ANALISA Probe Detection This lab was ordered by [place] and reported by [facility]. Procedure
[2020-08-13 06:54] VITALS: TEMP 98.6; BMI 25.1
[2020-08-13] MEDS ORDERED: PROPOFOL 20 ML ONE (07:44)
[2020-08-13] MEDS ORDERED: SUCCINYLCHOLINE CHLORIDE 200 MG/10 ML SYRINGE ONE (07:44)
[2020-08-13] MEDS ORDERED: ONDANSETRON 4 MG/2 ML VIAL ONE ×2 (07:47)
[2020-08-13] MEDS ORDERED: LIDOCAINE HCL/PF 2% SDV 5ML VIAL ONE (07:47)
[2020-08-13 08:58] VITALS: BP 122/76; PULSE 73
== END 2020-08-13 09:00 | disposition home or self-care (01) ==
LOC: FECT 06:39
PROVIDERS: ATTEND Psychiatry & Neurology Psychiatry
PROC: GZB4ZZZ Other Electroconvulsive Therapy (ICD-10-PCS; principal; 2020-08-13 07:00)
DX: F25.9 Schizoaffective disorder, unspecified (principal)
CPT/HCPCS: 90870; 94760

== ENCOUNTER 2020-11-03 05:53 | Day surgery (SDC) | payer OTHER ==
[2020-10-27 11:45] VITALS: BMI 25.1
[2020-11-03 09:24] LABS: ALBUMIN 4.2 g/dl (3.4-5.0); BILIRUBIN,TOTAL 0.3 mg/dl (0.2-1); CALCIUM 9.3 mg/dl (8.5-10); CREATININE 1.3 mg/dl (0.55-1.3); POTASSIUM 3.8 mmol/L (3.5-5.1); TOT PROT 6.4 g/dl (6.4-8.2)
[2020-11-03 09:33] VITALS: TEMP 97.6
[2020-11-03 09:42] VITALS: BP 126/70; PULSE 86
[2020-11-03 10:12] LABS: HEMATOCRIT 39.4 % (35.4-49); HEMOGLOBIN 12.9 GM/dl (11.7-16.9); MCH 30.5 pg (25.7-33.7); MCHC 32.8 g/dl (32.0-35.9); MEAN PLT VOLUME 10.4 fl (7.5-11.1); PLATELET COUNT 99 K/MM3 (134-434); RBC 4.24 M/mm3 (4.00-5.60); RDW 13.2 % (11.9-15.9); WHITE BLOOD COUNT 5.5 K/mm3 (4.0-10.8)
== END 2020-11-03 09:00 | disposition home or self-care (01) ==
LOC: FECT 05:53
PROVIDERS: ATTEND Psychiatry & Neurology Psychiatry
PROC: GZB4ZZZ Other Electroconvulsive Therapy (ICD-10-PCS; principal; 2020-11-03 07:00)
DX: F32.9 Major depressive disorder, single episode, unspecified (principal)
CPT/HCPCS: 36415; 80053; 85027; 90870; 93005; 94760

== ENCOUNTER 2021-01-07 06:44 | Day surgery (SDC) | payer OTHER ==
[2021-01-07] MEDS ORDERED: PROPOFOL 20 ML ONE (09:11)
[2021-01-07 10:40] VITALS: BMI 24.5
[2021-01-07 10:44] VITALS: TEMP 98.8
[2021-01-07 10:45] VITALS: BP 135/88; PULSE 89
== END 2021-01-07 10:20 | disposition home or self-care (01) ==
LOC: FASU 06:44 → FECT 06:44 → FASU 10:20
PROVIDERS: ATTEND Psychiatry & Neurology Psychiatry
PROC: GZB4ZZZ Other Electroconvulsive Therapy (ICD-10-PCS; principal; 2021-01-07 09:00)
DX: F32.89 Other specified depressive episodes (principal)
CPT/HCPCS: 90870; 94760

== ENCOUNTER 2021-02-04 05:50 | Day surgery (SDC) | payer OTHER ==
[2021-01-27 17:05] VITALS: BMI 24.5
[2021-02-04] MEDS ORDERED: PROPOFOL 20 ML ONE (08:41)
[2021-02-04] MEDS ORDERED: SUCCINYLCHOLINE CHLORIDE 200 MG/10 ML SYRINGE ONE (08:41)
[2021-02-04 09:15] VITALS: TEMP 98.9
[2021-02-04 09:34] VITALS: PULSE 81
[2021-02-04 09:57] VITALS: BP 132/74
== END 2021-02-04 10:00 | disposition home or self-care (01) ==
LOC: FECT 05:50
PROVIDERS: ATTEND Psychiatry & Neurology Psychiatry
PROC: GZB4ZZZ Other Electroconvulsive Therapy (ICD-10-PCS; principal; 2021-02-04 08:30)
DX: F32.9 Major depressive disorder, single episode, unspecified (principal)
CPT/HCPCS: 90870; 94760

== ENCOUNTER 2021-03-04 05:49 | Day surgery (SDC) | payer OTHER ==
[2021-03-04 06:36] VITALS: BMI 24.5
[2021-03-04 09:25] VITALS: BP 127/80; PULSE 85; TEMP 97.9
[2021-03-04] MEDS ORDERED: ONDANSETRON 4 MG/2 ML VIAL IVPUSH PRN (10:18)
[2021-03-04] MEDS ORDERED: LACTATED RINGERS SOLUTION 1,000 ML IV SCH (10:30)
== END 2021-03-04 09:20 | disposition home or self-care (01) ==
LOC: FECT 05:49
PROVIDERS: ATTEND Psychiatry & Neurology Psychiatry
PROC: GZB4ZZZ Other Electroconvulsive Therapy (ICD-10-PCS; principal; 2021-03-04 07:30)
DX: F25.9 Schizoaffective disorder, unspecified (principal)
CPT/HCPCS: 90870; 94760

== ENCOUNTER 2021-04-09 06:48 | Day surgery (SDC) | payer OTHER ==
[2021-04-09 08:19] VITALS: BMI 24.2
[2021-04-09] MEDS ORDERED: PROMETHAZINE HCL 25 MG/1 ML VIAL IVPUSH PRN (10:24)
[2021-04-09] MEDS ORDERED: ACETAMINOPHEN 325 MG TABLET (FP) PO PRN (10:24)
[2021-04-09] MEDS ORDERED: LACTATED RINGERS SOLUTION 1,000 ML IV SCH (10:30)
[2021-04-09 11:15] VITALS: TEMP 97.9
[2021-04-09 11:27] VITALS: BP 115/76; PULSE 77
== END 2021-04-09 11:20 | disposition home or self-care (01) ==
LOC: FECT 06:48
PROVIDERS: ATTEND Psychiatry & Neurology Psychiatry
PROC: GZB4ZZZ Other Electroconvulsive Therapy (ICD-10-PCS; principal; 2021-04-09 09:00)
DX: F25.1 Schizoaffective disorder, depressive type (principal)
CPT/HCPCS: 90870; 94760

== ENCOUNTER 2021-05-06 06:57 | Day surgery (SDC) | payer OTHER ==
[2021-05-04 10:07] VITALS: BMI 24.2
[2021-05-06 09:33] VITALS: TEMP 98.4
[2021-05-06 10:32] VITALS: BP 116/67; PULSE 68
[2021-05-06] MEDS ORDERED: ACETAMINOPHEN 325 MG TABLET (FP) PO PRN (13:42)
[2021-05-06] MEDS ORDERED: PROMETHAZINE HCL 25 MG/1 ML VIAL IVPUSH PRN (13:42)
[2021-05-06] MEDS ORDERED: ONDANSETRON 4 MG/2 ML VIAL IVPUSH PRN (13:42)
[2021-05-06] MEDS ORDERED: LACTATED RINGERS SOLUTION 1,000 ML IV SCH (13:45)
== END 2021-05-06 10:15 | disposition home or self-care (01) ==
LOC: FECT 06:57
PROVIDERS: ATTEND Psychiatry & Neurology Psychiatry
PROC: GZB4ZZZ Other Electroconvulsive Therapy (ICD-10-PCS; principal; 2021-05-06 09:00)
DX: F25.1 Schizoaffective disorder, depressive type (principal)
CPT/HCPCS: 90870; 94760

== ENCOUNTER 2021-06-03 05:46 | Day surgery (SDC) | payer OTHER ==
[2021-06-03 06:47] VITALS: BMI 24.0
[2021-06-03] MEDS ORDERED: ONDANSETRON 4 MG/2 ML VIAL ONE (07:18)
[2021-06-03 08:25] VITALS: TEMP 98.7
[2021-06-03 08:51] VITALS: BP 129/76; PULSE 87
[2021-06-03] MEDS ORDERED: ONDANSETRON 4 MG/2 ML VIAL IVPUSH PRN (11:22)
[2021-06-03] MEDS ORDERED: ACETAMINOPHEN 325 MG TABLET (FP) PO PRN (11:22)
[2021-06-03] MEDS ORDERED: LACTATED RINGERS SOLUTION 1,000 ML IV SCH (11:30)
== END 2021-06-03 08:50 | disposition home or self-care (01) ==
LOC: FECT 05:46
PROVIDERS: ATTEND Psychiatry & Neurology Psychiatry
PROC: GZB4ZZZ Other Electroconvulsive Therapy (ICD-10-PCS; principal; 2021-06-03 07:30)
DX: F25.9 Schizoaffective disorder, unspecified (principal)
CPT/HCPCS: 90870; 94760

== ENCOUNTER 2021-07-01 07:52 | Day surgery (SDC) | payer OTHER ==
[2021-07-01 08:38] VITALS: BMI 23.8
[2021-07-01 11:34] VITALS: TEMP 98.4
[2021-07-01 11:37] VITALS: BP 128/83; PULSE 74
== END 2021-07-01 11:20 | disposition home or self-care (01) ==
LOC: FECT 07:52
PROVIDERS: ATTEND Psychiatry & Neurology Psychiatry
PROC: GZB4ZZZ Other Electroconvulsive Therapy (ICD-10-PCS; principal; 2021-07-01 10:00)
DX: F25.9 Schizoaffective disorder, unspecified (principal)
CPT/HCPCS: 90870; 94760

== ENCOUNTER 2021-07-29 08:44 | Day surgery (SDC) | payer OTHER ==
[2021-07-29 09:16] VITALS: BMI 23.8
[2021-07-29] MEDS ORDERED: PROPOFOL 20 ML ONE (10:10)
[2021-07-29 10:58] VITALS: TEMP 97.7
[2021-07-29 11:35] VITALS: BP 134/72; PULSE 72
== END 2021-07-29 11:37 | disposition home or self-care (01) ==
LOC: FECT 08:44
PROVIDERS: ATTEND Psychiatry & Neurology Psychiatry
PROC: GZB4ZZZ Other Electroconvulsive Therapy (ICD-10-PCS; principal; 2021-07-29 11:00)
DX: F25.9 Schizoaffective disorder, unspecified (principal)
CPT/HCPCS: 90870; 94760

== ENCOUNTER 2021-08-25 09:37 | Day surgery (SDC) | payer OTHER ==
[2021-08-25 10:06] VITALS: BMI 23.6
[2021-08-25 12:54] VITALS: TEMP 98.2
[2021-08-25 13:49] VITALS: BP 140/86; PULSE 88
== END 2021-08-25 13:45 | disposition home or self-care (01) ==
LOC: FECT 09:37
PROVIDERS: ATTEND Psychiatry & Neurology Psychiatry
PROC: GZB4ZZZ Other Electroconvulsive Therapy (ICD-10-PCS; principal; 2021-08-25 11:00)
DX: F25.9 Schizoaffective disorder, unspecified (principal)
CPT/HCPCS: 90870; 94760

== ENCOUNTER 2021-09-23 06:01 | Day surgery (SDC) | payer OTHER ==
[2021-09-23 07:10] VITALS: BMI 23.6
[2021-09-23 08:57] VITALS: TEMP 98.3
[2021-09-23 09:15] VITALS: BP 135/86; PULSE 72
== END 2021-09-23 09:05 | disposition home or self-care (01) ==
LOC: FECT 06:01
PROVIDERS: ATTEND Psychiatry & Neurology Psychiatry
PROC: GZB4ZZZ Other Electroconvulsive Therapy (ICD-10-PCS; principal; 2021-09-23 08:00)
DX: F25.9 Schizoaffective disorder, unspecified (principal)
CPT/HCPCS: 90870; 94760

== ENCOUNTER 2021-10-21 06:30 | Day surgery (SDC) | payer OTHER ==
[2021-10-20 09:18] VITALS: BMI 23.6
[2021-10-21 10:01] VITALS: TEMP 97.1
[2021-10-21 10:14] VITALS: BP 124/76; PULSE 71
[2021-10-21 10:47] LABS: ALBUMIN 4.2 g/dl (3.4-5.0); BILIRUBIN,TOTAL 0.5 mg/dl (0.2-1); CALCIUM 9.6 mg/dl (8.5-10); CREATININE 1.4 mg/dl (0.55-1.3); TOT PROT 6.8 g/dl (6.4-8.2)
[2021-10-21 12:48] LABS: EOS % 0.5 % (0-4.5); HEMATOCRIT 38.8 % (35.4-49); LYMPH % 20.4 % (8-40); MCH 31.2 pg (25.7-33.7); MCHC 33.5 g/dl (32.0-35.9); MEAN CELL VOLUME 93.1 fl (80-96); MEAN PLT VOLUME 12.4 fl (7.5-11.1); MONO % 9.1 % (3.8-10.2); PLATELET COUNT 101 10^3/uL (134-434); RBC 4.16 M/mm3 (4.00-5.60); RDW 14.1 % (11.9-15.9); WHITE BLOOD COUNT 4.9 K/mm3 (4.0-10.0)
== END 2021-10-21 10:20 | disposition home or self-care (01) ==
LOC: FECT 06:30
PROVIDERS: ATTEND Psychiatry & Neurology Psychiatry
PROC: GZB4ZZZ Other Electroconvulsive Therapy (ICD-10-PCS; principal; 2021-10-21 08:30)
DX: F20.9 Schizophrenia, unspecified (principal)
CPT/HCPCS: 36415; 80053; 85025; 90870; 93005; 94760

== ENCOUNTER 2021-11-08 05:58 | Day surgery (SDC) | payer OTHER ==
[2021-11-04 10:06] VITALS: BMI 23.6
[2021-11-08] MEDS ORDERED: SUCCINYLCHOLINE CHLORIDE 200 MG/10 ML SYRINGE ONE (08:15)
[2021-11-08] MEDS ORDERED: PROPOFOL 20 ML ONE (08:15)
[2021-11-08 09:21] VITALS: TEMP 97.8
[2021-11-08 09:29] VITALS: BP 132/84; PULSE 82
== END 2021-11-08 09:32 | disposition home or self-care (01) ==
LOC: FECT 05:58
PROVIDERS: ATTEND Psychiatry & Neurology Psychiatry
PROC: GZB4ZZZ Other Electroconvulsive Therapy (ICD-10-PCS; principal; 2021-11-08 08:30)
DX: F25.9 Schizoaffective disorder, unspecified (principal)
CPT/HCPCS: 90870; 94760

== ENCOUNTER 2021-11-18 05:52 | Day surgery (SDC) | payer OTHER ==
[2021-11-09 15:00] VITALS: BMI 23.6
[2021-11-18] MEDS ORDERED: SUCCINYLCHOLINE CHLORIDE 200 MG/10 ML SYRINGE ONE (07:36)
[2021-11-18] MEDS ORDERED: PROPOFOL 20 ML ONE ×3 (07:36)
[2021-11-18 08:18] VITALS: TEMP 98
[2021-11-18 09:09] VITALS: BP 126/82; PULSE 72
== END 2021-11-18 09:11 | disposition home or self-care (01) ==
LOC: FECT 05:52
PROVIDERS: ATTEND Psychiatry & Neurology Psychiatry
PROC: GZB4ZZZ Other Electroconvulsive Therapy (ICD-10-PCS; principal; 2021-11-18 07:30)
DX: F25.9 Schizoaffective disorder, unspecified (principal)
CPT/HCPCS: 90870; 94760

== ENCOUNTER 2021-11-25 05:57 | Day surgery (SDC) | payer OTHER ==
[2021-11-19 15:30] VITALS: BMI 23.6
[2021-11-25 08:16] VITALS: TEMP 97.8
[2021-11-25 08:43] VITALS: BP 122/80; PULSE 77
== END 2021-11-25 08:40 | disposition home or self-care (01) ==
LOC: FECT 05:57
PROVIDERS: ATTEND Psychiatry & Neurology Psychiatry
PROC: GZB4ZZZ Other Electroconvulsive Therapy (ICD-10-PCS; principal; 2021-11-25 07:30)
DX: F25.9 Schizoaffective disorder, unspecified (principal)
CPT/HCPCS: 90870; 94760

== ENCOUNTER 2021-12-09 05:54 | Day surgery (SDC) | payer OTHER ==
[2021-12-03 07:59] VITALS: BMI 23.6
[2021-12-09 08:39] VITALS: TEMP 97.7
[2021-12-09 08:41] VITALS: BP 131/65; PULSE 71
== END 2021-12-09 08:43 | disposition home or self-care (01) ==
LOC: FECT 05:54
PROVIDERS: ATTEND Psychiatry & Neurology Psychiatry
PROC: GZB4ZZZ Other Electroconvulsive Therapy (ICD-10-PCS; principal; 2021-12-09 07:30)
DX: F25.9 Schizoaffective disorder, unspecified (principal)
CPT/HCPCS: 90870; 94760

== ENCOUNTER 2021-12-23 08:17 | Day surgery (SDC) | payer OTHER ==
[2021-12-21 07:48] VITALS: BMI 23.6
[2021-12-23 11:17] VITALS: TEMP 97.8
[2021-12-23 11:31] VITALS: BP 125/81; PULSE 87
== END 2021-12-23 11:05 | disposition home or self-care (01) ==
LOC: FECT 08:17
PROVIDERS: ATTEND Psychiatry & Neurology Psychiatry
PROC: GZB4ZZZ Other Electroconvulsive Therapy (ICD-10-PCS; principal; 2021-12-23 10:00)
DX: F25.9 Schizoaffective disorder, unspecified (principal)
CPT/HCPCS: 90870; 94760

== ENCOUNTER 2022-01-06 05:59 | Day surgery (SDC) | payer OTHER ==
[2021-12-31 18:00] VITALS: BMI 23.6
[2022-01-06 08:41] VITALS: TEMP 97.8
[2022-01-06 08:55] VITALS: BP 122/71; PULSE 76
[2022-01-06] MEDS ORDERED: ACETAMINOPHEN 325 MG TABLET (FP) PO PRN (11:57)
== END 2022-01-06 09:01 | disposition home or self-care (01) ==
LOC: FECT 05:59
PROVIDERS: ATTEND Psychiatry & Neurology Psychiatry
PROC: GZB4ZZZ Other Electroconvulsive Therapy (ICD-10-PCS; principal; 2022-01-06 08:00)
DX: F25.9 Schizoaffective disorder, unspecified (principal)
CPT/HCPCS: 90870; 94760

== ENCOUNTER 2022-01-21 05:58 | Day surgery (SDC) | payer OTHER ==
[2022-01-21 07:05] VITALS: BMI 24.3
[2022-01-21 08:22] VITALS: TEMP 97.8
[2022-01-21 08:48] VITALS: BP 130/78; PULSE 77
== END 2022-01-21 08:47 | disposition home or self-care (01) ==
LOC: FECT 05:58
PROVIDERS: ATTEND Psychiatry & Neurology Psychiatry
PROC: GZB4ZZZ Other Electroconvulsive Therapy (ICD-10-PCS; principal; 2022-01-21 07:35)
DX: F25.9 Schizoaffective disorder, unspecified (principal)
CPT/HCPCS: 90870; 94760

== ENCOUNTER 2022-02-10 08:25 | Day surgery (SDC) | payer OTHER ==
[2022-02-07 13:51] VITALS: BMI 24.3
[2022-02-10] MEDS ORDERED: PROPOFOL 20 ML ONE (09:28)
[2022-02-10 10:45] VITALS: TEMP 97.8
[2022-02-10 10:46] VITALS: BP 126/74; PULSE 81
== END 2022-02-10 10:47 | disposition home or self-care (01) ==
LOC: FECT 08:25
PROVIDERS: ATTEND Psychiatry & Neurology Psychiatry
PROC: GZB4ZZZ Other Electroconvulsive Therapy (ICD-10-PCS; principal; 2022-02-10 09:30)
DX: F25.9 Schizoaffective disorder, unspecified (principal)
CPT/HCPCS: 90870; 94760

== ENCOUNTER 2022-03-03 05:51 | Day surgery (SDC) | payer OTHER ==
[2022-02-24 15:01] VITALS: BMI 24.3
[2022-03-03 07:53] VITALS: TEMP 98
[2022-03-03 08:46] VITALS: BP 131/81; PULSE 81
== END 2022-03-03 08:47 | disposition home or self-care (01) ==
LOC: FECT 05:51
PROVIDERS: ATTEND Psychiatry & Neurology Psychiatry
PROC: GZB4ZZZ Other Electroconvulsive Therapy (ICD-10-PCS; principal; 2022-03-03 07:31)
DX: F25.9 Schizoaffective disorder, unspecified (principal)
CPT/HCPCS: 90870; 94760

== ENCOUNTER 2022-03-24 07:48 | Day surgery (SDC) | payer OTHER ==
[2022-03-14 16:51] VITALS: BMI 24.3
[2022-03-24 10:27] VITALS: TEMP 98.4
[2022-03-24 10:29] VITALS: BP 128/70; PULSE 81
== END 2022-03-24 10:29 | disposition home or self-care (01) ==
LOC: FECT 07:48
PROVIDERS: ATTEND Psychiatry & Neurology Psychiatry
PROC: GZB4ZZZ Other Electroconvulsive Therapy (ICD-10-PCS; principal; 2022-03-24 09:14)
DX: F25.9 Schizoaffective disorder, unspecified (principal)
CPT/HCPCS: 90870; 94760

== ENCOUNTER 2022-04-21 06:03 | Day surgery (SDC) | payer OTHER ==
[2022-04-18 07:40] VITALS: BMI 24.3
[2022-04-21 08:25] LABS: HEMATOCRIT 38.6 % (35.4-49); HEMOGLOBIN 13.3 G/dL (11.7-16.9); MCH 32.3 pg (25.7-33.7); MCHC 34.4 g/dl (32.0-35.9); MEAN CELL VOLUME 93.8 fl (80-96); PLATELET COUNT 94.4 10^3/uL (134-434); RBC 4.11 10^6/uL (4.00-5.60); RDW 14.1 % (11.9-15.9); WHITE BLOOD COUNT 4.7 10^3/uL (4.0-10.8)
[2022-04-21 08:26] LABS: ALBUMIN 4.3 g/dl (3.4-5.0); BILIRUBIN,TOTAL 0.5 mg/dl (0.2-1); CALCIUM 9.7 mg/dl (8.5-10); CREATININE 1.4 mg/dl (0.55-1.3); MAGNESIUM 2.1 mg/dL (1.8-2.4); TOT PROT 6.8 g/dl (6.4-8.2)
[2022-04-21 08:46] VITALS: BP 135/73; PULSE 84
[2022-04-21 08:59] VITALS: TEMP 96
== END 2022-04-21 08:55 | disposition home or self-care (01) ==
LOC: FECT 06:03
PROVIDERS: ATTEND Psychiatry & Neurology Psychiatry
PROC: GZB4ZZZ Other Electroconvulsive Therapy (ICD-10-PCS; principal; 2022-04-21 08:03)
DX: F25.9 Schizoaffective disorder, unspecified (principal)
CPT/HCPCS: 36415; 80053; 83735; 85027; 90870; 93005; 93010; 94760

== ENCOUNTER 2022-05-19 07:55 | Day surgery (SDC) | payer OTHER ==
[2022-05-16 15:42] VITALS: BMI 24.3
[2022-05-19] MEDS ORDERED: LACTATED RINGERS SOLUTION 1,000 ML IV SCH (08:45)
[2022-05-19] MEDS ORDERED: SUCCINYLCHOLINE CHLORIDE 200 MG/10 ML SYRINGE ONE (09:19)
[2022-05-19] MEDS ORDERED: PROPOFOL 20 ML ONE (09:19)
[2022-05-19] MEDS ORDERED: ONDANSETRON 4 MG/2 ML VIAL ONE (09:20)
[2022-05-19 09:51] VITALS: TEMP 97.8
[2022-05-19 10:41] VITALS: BP 123/73; PULSE 79
== END 2022-05-19 10:45 | disposition home or self-care (01) ==
LOC: FECT 07:55
PROVIDERS: ATTEND Psychiatry & Neurology Psychiatry
PROC: GZB4ZZZ Other Electroconvulsive Therapy (ICD-10-PCS; principal; 2022-05-19 09:30)
DX: F25.9 Schizoaffective disorder, unspecified (principal)
CPT/HCPCS: 90870; 94760

== ENCOUNTER 2022-06-16 05:56 | Day surgery (SDC) | payer OTHER ==
[2022-06-08 13:14] VITALS: BMI 24.3
[2022-06-16] MEDS ORDERED: SUCCINYLCHOLINE CHLORIDE 200 MG/10 ML SYRINGE ONE (07:32)
[2022-06-16 09:06] VITALS: RESP 16; TEMP 97.3
[2022-06-16 09:08] VITALS: BP 138/72; PULSE 78
== END 2022-06-16 09:05 | disposition home or self-care (01) ==
LOC: FECT 05:56
PROVIDERS: ATTEND Psychiatry & Neurology Psychiatry
PROC: GZB4ZZZ Other Electroconvulsive Therapy (ICD-10-PCS; principal; 2022-06-16 07:41)
DX: F25.9 Schizoaffective disorder, unspecified (principal)
CPT/HCPCS: 90870; 94760

== ENCOUNTER 2022-07-14 07:20 | Day surgery (SDC) | payer OTHER ==
[2022-07-08 12:21] VITALS: BMI 24.3
[2022-07-14 10:16] VITALS: RESP 18; TEMP 97.8
[2022-07-14 10:26] VITALS: BP 118/77; PULSE 71
== END 2022-07-14 10:25 | disposition home or self-care (01) ==
LOC: FECT 07:20
PROVIDERS: ATTEND Psychiatry & Neurology Psychiatry
PROC: GZB4ZZZ Other Electroconvulsive Therapy (ICD-10-PCS; principal; 2022-07-14 09:17)
DX: F25.9 Schizoaffective disorder, unspecified (principal)
CPT/HCPCS: 90870; 94760

== ENCOUNTER 2022-08-11 06:01 | Day surgery (SDC) | payer OTHER ==
[2022-08-11 07:02] VITALS: BMI 24.5
[2022-08-11] MEDS ORDERED: KETAMINE HCL 200 MG/20 ML VIAL ONE (07:11)
[2022-08-11 08:45] VITALS: RESP 18; TEMP 97.9
[2022-08-11 09:52] VITALS: BP 139/86; PULSE 88
== END 2022-08-11 09:15 | disposition home or self-care (01) ==
LOC: FECT 06:01
PROVIDERS: ATTEND Psychiatry & Neurology Psychiatry
PROC: GZB4ZZZ Other Electroconvulsive Therapy (ICD-10-PCS; principal; 2022-08-11 07:47)
DX: F25.9 Schizoaffective disorder, unspecified (principal)
CPT/HCPCS: 90870; 94760

== ENCOUNTER 2022-09-08 06:50 | Day surgery (SDC) | payer OTHER ==
[2022-09-02 17:14] VITALS: BMI 24.5
[2022-09-08] MEDS ORDERED: PROPOFOL 20 ML ONE (07:48)
[2022-09-08] MEDS ORDERED: SUCCINYLCHOLINE CHLORIDE 200 MG/10 ML SYRINGE ONE (07:48)
[2022-09-08 10:10] VITALS: RESP 16; TEMP 97.9
[2022-09-08 10:13] VITALS: BP 134/81; PULSE 80
== END 2022-09-08 09:50 | disposition home or self-care (01) ==
LOC: FECT 06:50
PROVIDERS: ATTEND Psychiatry & Neurology Psychiatry
PROC: GZB4ZZZ Other Electroconvulsive Therapy (ICD-10-PCS; principal; 2022-09-08 08:36)
DX: F32.A Depression, unspecified (principal)
CPT/HCPCS: 90870; 94760

== ENCOUNTER 2022-10-07 05:57 | Day surgery (SDC) | payer OTHER ==
[2022-10-04 09:20] VITALS: BMI 24.5
[2022-10-07 08:47] VITALS: RESP 18
[2022-10-07 08:51] VITALS: BP 133/80; PULSE 77; TEMP 98
[2022-10-07] MEDS ORDERED: LACTATED RINGERS SOLUTION 1,000 ML IV SCH (11:15)
== END 2022-10-07 08:45 | disposition home or self-care (01) ==
LOC: FECT 05:57
PROVIDERS: ATTEND Psychiatry & Neurology Psychiatry
PROC: GZB4ZZZ Other Electroconvulsive Therapy (ICD-10-PCS; principal; 2022-10-07 07:37)
DX: F25.9 Schizoaffective disorder, unspecified (principal)
CPT/HCPCS: 90870; 94760

== ENCOUNTER 2022-11-10 07:19 | Day surgery (SDC) | payer OTHER ==
[2022-11-10 09:26] VITALS: BP 146/88; PULSE 97; RESP 16; TEMP 99.4; BMI 24.3
== END 2022-11-10 10:15 | disposition home or self-care (01) ==
LOC: FECT 07:19
PROVIDERS: ATTEND Psychiatry & Neurology Psychiatry
PROC: GZB4ZZZ Other Electroconvulsive Therapy (ICD-10-PCS; principal; 2022-11-10)
DX: F25.9 Schizoaffective disorder, unspecified (principal)
CPT/HCPCS: 93005; 93010

== ENCOUNTER 2022-11-15 06:00 | Day surgery (SDC) | payer OTHER ==
[2022-11-10 15:10] VITALS: BMI 24.3
[2022-11-15 08:44] VITALS: BP 138/82; PULSE 82; RESP 20; TEMP 98.4
[2022-11-15] MEDS ORDERED: ACETAMINOPHEN 325 MG TABLET (FP) PO PRN (10:24)
== END 2022-11-15 08:55 | disposition home or self-care (01) ==
LOC: FECT 06:00
PROVIDERS: ATTEND Psychiatry & Neurology Psychiatry
PROC: GZB4ZZZ Other Electroconvulsive Therapy (ICD-10-PCS; principal; 2022-11-15 07:41)
DX: F25.9 Schizoaffective disorder, unspecified (principal)
CPT/HCPCS: 90870; 94760

== ENCOUNTER 2022-12-13 07:31 | Day surgery (SDC) | payer OTHER ==
[2022-12-08 13:33] VITALS: BMI 24.3
[2022-12-13] MEDS ORDERED: ONDANSETRON 4 MG/2 ML VIAL IVPUSH PRN (07:54)
[2022-12-13] MEDS ORDERED: LACTATED RINGERS SOLUTION 1,000 ML IV SCH (08:00)
[2022-12-13 10:18] VITALS: RESP 18; TEMP 97.8
[2022-12-13 10:45] VITALS: BP 144/77; PULSE 77
== END 2022-12-13 10:40 | disposition home or self-care (01) ==
LOC: FECT 07:31
PROVIDERS: ATTEND Psychiatry & Neurology Psychiatry
PROC: GZB4ZZZ Other Electroconvulsive Therapy (ICD-10-PCS; principal; 2022-12-13 09:12)
DX: F25.9 Schizoaffective disorder, unspecified (principal)
CPT/HCPCS: 90870; 94760

== ENCOUNTER 2023-01-10 06:42 | Day surgery (SDC) | payer OTHER ==
[2023-01-03 14:24] VITALS: BMI 24.3
[2023-01-10 09:29] VITALS: TEMP 97.9
[2023-01-10 09:51] VITALS: RESP 18
[2023-01-10 10:08] VITALS: BP 128/81; PULSE 81
[2023-01-10] MEDS ORDERED: ACETAMINOPHEN 325 MG TABLET (FP) PO PRN (10:17)
[2023-01-10] MEDS ORDERED: PROMETHAZINE HCL 25 MG/1 ML VIAL IVPB PRN (10:17)
[2023-01-10] MEDS ORDERED: LACTATED RINGERS SOLUTION 1,000 ML IV SCH (10:30)
== END 2023-01-10 10:10 | disposition home or self-care (01) ==
LOC: FECT 06:42
PROVIDERS: ATTEND Psychiatry & Neurology Psychiatry
PROC: GZB4ZZZ Other Electroconvulsive Therapy (ICD-10-PCS; principal; 2023-01-10 09:01)
DX: F25.1 Schizoaffective disorder, depressive type (principal)
CPT/HCPCS: 90870; 94760

== ENCOUNTER 2023-02-07 06:41 | Day surgery (SDC) | payer OTHER ==
[~2023-02-07 06:41] MED LIST: LACTATED RINGERS SOLUTION 1,000 ML IV SCH
[2023-02-07 07:21] VITALS: RESP 18; BMI 23.8
[2023-02-07] MEDS ORDERED: SUCCINYLCHOLINE CHLORIDE 200 MG/10 ML SYRINGE ONE (07:59)
[2023-02-07] MEDS ORDERED: PROPOFOL 20 ML ONE (07:59)
[2023-02-07] MEDS ORDERED: KETOROLAC TROMETHAMINE 30 MG/1 ML VIAL ONE (07:59)
[2023-02-07] MEDS ORDERED: ONDANSETRON 4 MG/2 ML VIAL ONE (07:59)
[2023-02-07] MEDS ORDERED: LIDOCAINE HCL/PF 2% SDV 5ML VIAL ONE (08:01)
[2023-02-07] MEDS ORDERED: DEXAMETHASONE SOD PHOSPHATE 4 MG/1 ML VIAL ONE (08:01)
[2023-02-07 09:54] VITALS: TEMP 98.5
[2023-02-07 09:56] VITALS: BP 140/74; PULSE 88
== END 2023-02-07 09:50 | disposition home or self-care (01) ==
LOC: FECT 06:41
PROVIDERS: ATTEND Psychiatry & Neurology Psychiatry
PROC: GZB4ZZZ Other Electroconvulsive Therapy (ICD-10-PCS; principal; 2023-02-07 08:58)
DX: F25.9 Schizoaffective disorder, unspecified (principal)
CPT/HCPCS: 90870; 94760

== ENCOUNTER 2023-03-07 08:27 | Day surgery (SDC) | payer OTHER ==
[2023-02-28 11:56] VITALS: BMI 23.8
[2023-03-07 10:13] VITALS: RESP 18; TEMP 97.4
[2023-03-07 10:22] VITALS: BP 136/80; PULSE 80
== END 2023-03-07 10:27 | disposition home or self-care (01) ==
LOC: FECT 08:27
PROVIDERS: ATTEND Psychiatry & Neurology Psychiatry
PROC: GZB4ZZZ Other Electroconvulsive Therapy (ICD-10-PCS; principal; 2023-03-07 09:19)
DX: F25.1 Schizoaffective disorder, depressive type (principal)
CPT/HCPCS: 90870; 94760

== ENCOUNTER 2023-04-04 08:37 | Day surgery (SDC) | payer OTHER ==
[2023-03-24 08:48] VITALS: BMI 23.8
[2023-04-04 11:07] VITALS: RESP 18; TEMP 97.9
[2023-04-04 11:27] VITALS: BP 140/60; PULSE 77
== END 2023-04-04 11:25 | disposition home or self-care (01) ==
LOC: FECT 08:37
PROVIDERS: ATTEND Psychiatry & Neurology Psychiatry
PROC: GZB4ZZZ Other Electroconvulsive Therapy (ICD-10-PCS; principal; 2023-04-04 10:16)
DX: F25.9 Schizoaffective disorder, unspecified (principal)
CPT/HCPCS: 90870; 94760

== ENCOUNTER 2023-05-02 09:07 | Day surgery (SDC) | payer OTHER ==
[2023-04-26 14:41] VITALS: BMI 23.8
[2023-05-02] MEDS ORDERED: LACTATED RINGERS SOLUTION 1,000 ML IV SCH (10:15)
[2023-05-02 10:23] LABS: HEMATOCRIT 40.4 % (35.4-49); HEMOGLOBIN 13.6 G/dL (11.7-16.9); MCH 31.8 pg (25.7-33.7); MCHC 33.7 g/dl (32.0-35.9); MEAN CELL VOLUME 94.3 fl (80-96); MEAN PLT VOLUME 12.9 fl (7.5-11.1); PLATELET COUNT 105.7 10^3/uL (134-434); RBC 4.28 10^6/uL (4.00-5.60); WHITE BLOOD COUNT 4.8 10^3/uL (4.0-10.8)
[2023-05-02 10:27] LABS: PLATELET ESTIMATE DECREASED
[2023-05-02 10:34] LABS: ALBUMIN 4.2 g/dl (3.4-5.0); BILIRUBIN,TOTAL 0.4 mg/dl (0.2-1); BLOOD UREA NITROGEN 24.9 mg/dl (7-18); CALCIUM 9.7 mg/dl (8.5-10.1); CREATININE 1.5 mg/dl (0.6-1.3); SGOT/AST 22.2 U/L (15-37); SGPT/ALT 29.5 U/L (7-52); TOT PROT 6.3 g/dl (6.4-8.2)
[2023-05-02 11:02] VITALS: RESP 18; TEMP 97.7
[2023-05-02 11:14] VITALS: BP 145/89; PULSE 88
== END 2023-05-02 11:15 | disposition home or self-care (01) ==
LOC: FECT 09:07
PROVIDERS: ATTEND Psychiatry & Neurology Psychiatry
PROC: GZB4ZZZ Other Electroconvulsive Therapy (ICD-10-PCS; principal; 2023-05-02 10:16)
DX: F25.9 Schizoaffective disorder, unspecified (principal)
CPT/HCPCS: 36415; 80053; 85027; 90870; 93005; 94760

== ENCOUNTER 2023-06-08 07:16 | Day surgery (SDC) | payer OTHER ==
[2023-05-22 11:56] VITALS: BMI 23.8
[2023-06-08 08:49] LABS: HEMATOCRIT 38.5 % (35.4-49); HEMOGLOBIN 12.8 G/dL (11.7-16.9); MCH 31.2 pg (25.7-33.7); MCHC 33.4 g/dl (32.0-35.9); MEAN CELL VOLUME 93.6 fl (80-96); MEAN PLT VOLUME 11.2 fl (7.5-11.1); PLATELET COUNT 99.6 10^3/uL (134-434); RBC 4.11 10^6/uL (4.00-5.60); RDW 14.5 % (11.9-15.9); WHITE BLOOD COUNT 4.8 10^3/uL (4.0-10.8)
[2023-06-08 09:07] LABS: ALBUMIN 3.8 g/dl (3.4-5.0); BILIRUBIN,TOTAL 0.3 mg/dl (0.2-1); BLOOD UREA NITROGEN 28.2 mg/dl (7-18); CALCIUM 9.1 mg/dl (8.5-10.1); CREATININE 1.6 mg/dl (0.6-1.3); POTASSIUM 4.3 mmol/L (3.5-5.1); SGOT/AST 23.6 U/L (15-37); SGPT/ALT 27.2 U/L (7-52); TOT PROT 5.8 g/dl (6.4-8.2)
[2023-06-08 09:26] LABS: PLATELET ESTIMATE SLT DECREASE
[2023-06-08 10:50] VITALS: TEMP 98.2
[2023-06-08 11:12] VITALS: RESP 18
[2023-06-08 11:19] VITALS: BP 139/75; PULSE 87
== END 2023-06-08 11:35 | disposition home or self-care (01) ==
LOC: FECT 07:16
PROVIDERS: ATTEND Psychiatry & Neurology Psychiatry
PROC: GZB4ZZZ Other Electroconvulsive Therapy (ICD-10-PCS; principal; 2023-06-08 10:16)
DX: F25.9 Schizoaffective disorder, unspecified (principal)
CPT/HCPCS: 36415; 80053; 85027; 90870; 94760

== ENCOUNTER 2023-07-04 07:51 | Day surgery (SDC) | payer OTHER ==
[2023-07-04 08:27] VITALS: BMI 24.3
[2023-07-04 10:00] VITALS: RESP 18; TEMP 97
[2023-07-04 10:22] VITALS: BP 140/86; PULSE 76
[2023-07-04] MEDS ORDERED: PROMETHAZINE HCL 25 MG/1 ML VIAL IVPB PRN (11:04)
[2023-07-04] MEDS ORDERED: ACETAMINOPHEN 325 MG TABLET (FP) PO PRN (11:04)
[2023-07-04] MEDS ORDERED: LACTATED RINGERS SOLUTION 1,000 ML IV SCH (11:15)
== END 2023-07-04 10:22 | disposition home or self-care (01) ==
LOC: FECT 07:51
PROVIDERS: ATTEND Psychiatry & Neurology Psychiatry
PROC: GZB4ZZZ Other Electroconvulsive Therapy (ICD-10-PCS; principal; 2023-07-04 09:20)
DX: F25.9 Schizoaffective disorder, unspecified (principal)
CPT/HCPCS: 90870; 94760

== ENCOUNTER 2023-08-29 08:43 | Day surgery (SDC) | payer OTHER ==
[2023-08-25 15:05] VITALS: BMI 24.3
[2023-08-29 10:58] VITALS: RESP 16
[2023-08-29 11:12] VITALS: PULSE 71; TEMP 97.8
[2023-08-29 11:23] VITALS: BP 144/83
== END 2023-08-29 11:23 | disposition home or self-care (01) ==
LOC: FECT 08:43
PROVIDERS: ATTEND Psychiatry & Neurology Psychiatry
PROC: GZB4ZZZ Other Electroconvulsive Therapy (ICD-10-PCS; principal; 2023-08-29 10:16)
DX: F25.9 Schizoaffective disorder, unspecified (principal)
CPT/HCPCS: 90870; 94760

== ENCOUNTER 2023-09-26 06:32 | Day surgery (SDC) | payer OTHER ==
[2023-09-21 07:56] VITALS: BMI 24.3
[2023-09-26] MEDS ORDERED: ONDANSETRON 4 MG/2 ML VIAL IVPUSH PRN (08:06)
[2023-09-26] MEDS ORDERED: LACTATED RINGERS SOLUTION 1,000 ML IV SCH (08:15)
[2023-09-26] MEDS ORDERED: ONDANSETRON 4 MG/2 ML VIAL ONE (08:46)
[2023-09-26] MEDS ORDERED: PROPOFOL 20 ML ONE (08:46)
[2023-09-26] MEDS ORDERED: KETOROLAC TROMETHAMINE 30 MG/1 ML VIAL ONE (08:46)
[2023-09-26] MEDS ORDERED: SUCCINYLCHOLINE CHLORIDE 200 MG/10 ML SYRINGE ONE (08:46)
[2023-09-26 09:34] VITALS: RESP 18; TEMP 98.3
[2023-09-26 10:00] VITALS: BP 136/81; PULSE 67
== END 2023-09-26 10:03 | disposition home or self-care (01) ==
LOC: FECT 06:32
PROVIDERS: ATTEND Student in an Organized Health Care Education/Training Program
PROC: GZB4ZZZ Other Electroconvulsive Therapy (ICD-10-PCS; principal; 2023-09-26 08:54)
DX: F25.1 Schizoaffective disorder, depressive type (principal)
CPT/HCPCS: 90870; 94760

== ENCOUNTER 2023-10-24 09:34 | Day surgery (SDC) | payer OTHER ==
[2023-10-18 16:48] VITALS: BMI 24.3
[2023-10-24 09:53] VITALS: RESP 18
[2023-10-24 12:28] VITALS: BP 127/76; PULSE 83; TEMP 98
== END 2023-10-24 12:30 | disposition home or self-care (01) ==
LOC: FECT 09:34
PROVIDERS: ATTEND Student in an Organized Health Care Education/Training Program
PROC: GZB4ZZZ Other Electroconvulsive Therapy (ICD-10-PCS; principal; 2023-10-24 11:13)
DX: F25.1 Schizoaffective disorder, depressive type (principal)
CPT/HCPCS: 90870; 94760

== ENCOUNTER 2023-11-21 08:30 | Day surgery (SDC) | payer OTHER ==
[2023-11-07 11:19] VITALS: BMI 24.3
[2023-11-21] MEDS ORDERED: ONDANSETRON 4 MG/2 ML VIAL IVPUSH PRN (09:19)
[2023-11-21] MEDS ORDERED: LACTATED RINGERS SOLUTION 1,000 ML IV SCH (09:30)
[2023-11-21 12:13] VITALS: RESP 19; TEMP 98.2
[2023-11-21 12:15] VITALS: BP 127/77; PULSE 78
== END 2023-11-21 12:20 | disposition home or self-care (01) ==
LOC: FECT 08:30
PROVIDERS: ATTEND Student in an Organized Health Care Education/Training Program
PROC: GZB4ZZZ Other Electroconvulsive Therapy (ICD-10-PCS; principal; 2023-11-21 10:57)
DX: F25.1 Schizoaffective disorder, depressive type (principal)
CPT/HCPCS: 90870; 93005; 93010; 94760

== ENCOUNTER 2023-12-22 08:50 | Day surgery (SDC) | payer OTHER ==
[2023-12-11 07:58] VITALS: BMI 24.3
[2023-12-22 09:03] VITALS: RESP 18
[2023-12-22 09:53] LABS: HEMATOCRIT 37.7 % (35.4-49); HEMOGLOBIN 12.5 G/dL (11.7-16.9); MCH 31.3 pg (25.7-33.7); MCHC 33.3 g/dl (32.0-35.9); MEAN CELL VOLUME 93.9 fl (80-96); MEAN PLT VOLUME 12.1 fl (7.5-11.1); PLATELET COUNT 96.5 10^3/uL (134-434); RBC 4.01 10^6/uL (4.00-5.60); RDW 14.6 % (11.9-15.9); WHITE BLOOD COUNT 5.2 10^3/uL (4.0-10.8)
[2023-12-22 10:12] LABS: BILIRUBIN,TOTAL 0.4 mg/dl (0.2-1); CALCIUM 9.3 mg/dl (8.5-10.1); CREATININE 1.4 mg/dl (0.6-1.3); TOT PROT 6.2 g/dl (6.4-8.2)
[2023-12-22 12:13] VITALS: BP 138/81; PULSE 78; TEMP 97.4
== END 2023-12-22 12:46 | disposition home or self-care (01) ==
LOC: FECT 08:50
PROVIDERS: ATTEND Student in an Organized Health Care Education/Training Program
PROC: GZB4ZZZ Other Electroconvulsive Therapy (ICD-10-PCS; principal; 2023-12-22 11:34)
DX: F25.9 Schizoaffective disorder, unspecified (principal)
CPT/HCPCS: 36415; 80053; 85027; 90870; 94760

== ENCOUNTER 2024-01-16 09:24 | Day surgery (SDC) | payer OTHER ==
[2024-01-16 09:50] VITALS: BMI 24.3
[2024-01-16] MEDS ORDERED: ONDANSETRON 4 MG/2 ML VIAL IVPUSH PRN (10:25)
[2024-01-16] MEDS ORDERED: LACTATED RINGERS SOLUTION 1,000 ML IV SCH (10:30)
[2024-01-16] MEDS ORDERED: PROPOFOL 20 ML ONE (10:31)
[2024-01-16] MEDS ORDERED: SUCCINYLCHOLINE CHLORIDE 200 MG/10 ML SYRINGE ONE (10:31)
[2024-01-16] MEDS ORDERED: KETOROLAC TROMETHAMINE 30 MG/1 ML VIAL ONE (10:32)
[2024-01-16 12:11] VITALS: TEMP 98
[2024-01-16 12:29] VITALS: BP 137/88; PULSE 89; RESP 16
== END 2024-01-16 12:35 | disposition home or self-care (01) ==
LOC: FECT 09:24
PROVIDERS: ATTEND Psychiatry & Neurology Psychiatry
PROC: GZB4ZZZ Other Electroconvulsive Therapy (ICD-10-PCS; principal; 2024-01-16 11:39)
DX: F25.9 Schizoaffective disorder, unspecified (principal)
CPT/HCPCS: 90870; 94760

== ENCOUNTER 2024-02-13 08:46 | Day surgery (SDC) | payer OTHER ==
[2024-02-05 15:33] VITALS: BMI 24.3
[2024-02-13] MEDS ORDERED: SUCCINYLCHOLINE CHLORIDE 200 MG/10 ML SYRINGE ONE (11:10)
[2024-02-13] MEDS ORDERED: PROPOFOL 40 ML ONE (11:10)
[2024-02-13] MEDS ORDERED: KETOROLAC TROMETHAMINE 30 MG/1 ML VIAL ONE (11:44)
[2024-02-13 12:28] VITALS: RESP 18; TEMP 98
[2024-02-13 12:52] VITALS: BP 135/85; PULSE 74
== END 2024-02-13 12:55 | disposition home or self-care (01) ==
LOC: FECT 08:46
PROVIDERS: ATTEND Student in an Organized Health Care Education/Training Program
PROC: GZB4ZZZ Other Electroconvulsive Therapy (ICD-10-PCS; principal; 2024-02-13 11:40)
DX: F25.9 Schizoaffective disorder, unspecified (principal)
CPT/HCPCS: 90870; 94760

== ENCOUNTER 2024-03-12 09:29 | Day surgery (SDC) | payer OTHER ==
[2024-03-04 15:06] VITALS: BMI 24.3
[2024-03-12 11:35] VITALS: PULSE 84; RESP 18; TEMP 97.1
[2024-03-12 12:03] VITALS: BP 140/80
== END 2024-03-12 11:55 | disposition home or self-care (01) ==
LOC: FECT 09:29
PROVIDERS: ATTEND Student in an Organized Health Care Education/Training Program
PROC: GZB4ZZZ Other Electroconvulsive Therapy (ICD-10-PCS; principal; 2024-03-12 11:00)
DX: F25.9 Schizoaffective disorder, unspecified (principal)
CPT/HCPCS: 90870; 94760

== ENCOUNTER 2024-04-09 10:37 | Day surgery (SDC) | payer OTHER ==
[2024-04-09 11:03] VITALS: BMI 24.3
[2024-04-09 13:01] VITALS: RESP 17
[2024-04-09 13:20] VITALS: TEMP 97.6
[2024-04-09 13:22] VITALS: BP 139/75; PULSE 75
== END 2024-04-09 13:23 | disposition home or self-care (01) ==
LOC: FECT 10:37
PROVIDERS: ATTEND Student in an Organized Health Care Education/Training Program
PROC: GZB4ZZZ Other Electroconvulsive Therapy (ICD-10-PCS; principal; 2024-04-09 12:23)
DX: F25.9 Schizoaffective disorder, unspecified (principal)
CPT/HCPCS: 90870; 94760

== ENCOUNTER 2024-05-07 06:11 | Day surgery (SDC) | payer OTHER ==
[2024-05-07 06:41] VITALS: BMI 24.3
[2024-05-07 08:48] VITALS: PULSE 81
[2024-05-07 09:05] VITALS: BP 138/81; RESP 16; TEMP 97.1
== END 2024-05-07 09:12 | disposition home or self-care (01) ==
LOC: FECT 06:11
PROVIDERS: ATTEND Student in an Organized Health Care Education/Training Program
PROC: GZB4ZZZ Other Electroconvulsive Therapy (ICD-10-PCS; principal; 2024-05-07 08:20)
DX: F25.1 Schizoaffective disorder, depressive type (principal)
CPT/HCPCS: 90870; 94760

== ENCOUNTER 2024-06-04 09:49 | Day surgery (SDC) | payer OTHER ==
[2024-05-27 18:37] VITALS: BMI 24.3
[2024-06-04 12:05] VITALS: RESP 18; TEMP 97.1
[2024-06-04 12:16] VITALS: BP 124/76; PULSE 81
== END 2024-06-04 12:17 | disposition home or self-care (01) ==
LOC: FECT 09:49
PROVIDERS: ATTEND Psychiatry & Neurology Psychiatry
PROC: GZB4ZZZ Other Electroconvulsive Therapy (ICD-10-PCS; principal; 2024-06-04 11:18)
DX: F25.9 Schizoaffective disorder, unspecified (principal)
CPT/HCPCS: 90870; 93005; 93010; 94760

== ENCOUNTER 2024-07-02 09:47 | Day surgery (SDC) | payer OTHER ==
[2024-06-26 13:50] VITALS: BMI 24.3
[2024-07-02 10:23] VITALS: RESP 18
[2024-07-02 10:25] LABS: HEMATOCRIT 40.5 % (35.4-49); HEMOGLOBIN 12.9 G/dL (11.7-16.9); MCHC 31.7 g/dl (32.0-35.9); MEAN CELL VOLUME 94.5 fl (80-96); MEAN PLT VOLUME 12.9 fl (7.5-11.1); RBC 4.29 10^6/uL (4.00-5.60); RDW 14.4 % (11.9-15.9); WHITE BLOOD COUNT 6.7 10^3/uL (4.0-10.8)
[2024-07-02 10:30] LABS: ALBUMIN 4.2 g/dl (3.4-5.0); BILIRUBIN,TOTAL 0.4 mg/dl (0.2-1); CALCIUM 9.6 mg/dl (8.5-10.1); CREATININE 1.5 mg/dl (0.6-1.3); POTASSIUM 4.2 mmol/L (3.5-5.1); TOT PROT 6.9 g/dl (6.4-8.2)
[2024-07-02 11:21] LABS: PLATELET ESTIMATE DECREASED
[2024-07-02 12:17] VITALS: TEMP 98
[2024-07-02 12:45] VITALS: BP 131/71; PULSE 83
== END 2024-07-02 12:40 | disposition home or self-care (01) ==
LOC: FECT 09:47
PROVIDERS: ATTEND Student in an Organized Health Care Education/Training Program
PROC: GZB4ZZZ Other Electroconvulsive Therapy (ICD-10-PCS; principal; 2024-07-02 11:25)
DX: F20.9 Schizophrenia, unspecified (principal)
CPT/HCPCS: 36415; 80053; 85027; 90870; 94760

== ENCOUNTER 2024-07-30 09:40 | Day surgery (SDC) | payer OTHER ==
[2024-07-30 10:07] VITALS: BMI 24.2
[2024-07-30 12:16] VITALS: TEMP 97
[2024-07-30 12:17] VITALS: BP 138/78; PULSE 97; RESP 18
== END 2024-07-30 12:19 | disposition home or self-care (01) ==
LOC: FECT 09:40
PROVIDERS: ATTEND Student in an Organized Health Care Education/Training Program
PROC: GZB4ZZZ Other Electroconvulsive Therapy (ICD-10-PCS; principal; 2024-07-30 11:21)
DX: F20.9 Schizophrenia, unspecified (principal)
CPT/HCPCS: 90870; 94760

== ENCOUNTER 2024-08-27 09:55 | Day surgery (SDC) | payer OTHER ==
[2024-08-27 10:31] VITALS: BMI 24.1
[2024-08-27 12:12] VITALS: TEMP 97.8
[2024-08-27 12:49] VITALS: BP 126/73; PULSE 88; RESP 16
== END 2024-08-27 12:55 | disposition home or self-care (01) ==
LOC: FECT 09:55
PROVIDERS: ATTEND Student in an Organized Health Care Education/Training Program
PROC: GZB4ZZZ Other Electroconvulsive Therapy (ICD-10-PCS; principal; 2024-08-27 11:43)
DX: F25.9 Schizoaffective disorder, unspecified (principal)
CPT/HCPCS: 90870; 94760

== ENCOUNTER 2025-01-02 09:50 | Day surgery (SDC) | payer OTHER ==
[2024-12-25 14:07] VITALS: BMI 24.2
[2025-01-02 10:40] LABS: HEMATOCRIT 36.6 % (35.4-49); HEMOGLOBIN 12.3 G/dL (11.7-16.9); MCH 31.5 pg (25.7-33.7); MCHC 33.6 g/dl (32.0-35.9); MEAN CELL VOLUME 93.6 fl (80-96); MEAN PLT VOLUME 13.1 fl (7.5-11.1); PLATELET COUNT 79.9 10^3/uL (134-434); RBC 3.91 10^6/uL (4.00-5.60); WHITE BLOOD COUNT 4.8 10^3/uL (4.0-10.8)
[2025-01-02 10:43] LABS: PLATELET ESTIMATE DECREASED
[2025-01-02 11:38] VITALS: TEMP 97.3
[2025-01-02 11:59] VITALS: PULSE 78; RESP 18
[2025-01-02 12:14] VITALS: BP 136/80
== END 2025-01-02 12:14 | disposition home or self-care (01) ==
LOC: FECT 09:50
PROVIDERS: ATTEND Psychiatry & Neurology Psychiatry
PROC: GZB4ZZZ Other Electroconvulsive Therapy (ICD-10-PCS; principal; 2025-01-02 11:00)
DX: F25.9 Schizoaffective disorder, unspecified (principal)
CPT/HCPCS: 36415; 85027; 90870; 94760

== ENCOUNTER 2025-03-25 06:11 | Day surgery (SDC) | payer OTHER ==
[2025-03-21 16:25] VITALS: BMI 24.2
[2025-03-25 08:28] VITALS: PULSE 82; RESP 18; TEMP 97.3
[2025-03-25 08:39] VITALS: BP 140/84
== END 2025-03-25 08:38 | disposition home or self-care (01) ==
LOC: FECT 06:11
PROVIDERS: ATTEND Student in an Organized Health Care Education/Training Program
PROC: GZB4ZZZ Other Electroconvulsive Therapy (ICD-10-PCS; principal; 2025-03-25 07:48)
DX: F25.9 Schizoaffective disorder, unspecified (principal)
CPT/HCPCS: 90870; 94760

== ENCOUNTER 2025-04-22 08:17 | Day surgery (SDC) | payer OTHER ==
[2025-04-15 16:33] VITALS: BMI 25.4
[2025-04-22] MEDS ORDERED: PROPOFOL 20 ML ONE (10:04)
[2025-04-22 10:48] VITALS: PULSE 83; RESP 16; TEMP 96.8
[2025-04-22 11:08] VITALS: BP 135/84
== END 2025-04-22 11:20 | disposition home or self-care (01) ==
LOC: FECT 08:17
PROVIDERS: ATTEND Student in an Organized Health Care Education/Training Program
PROC: GZB4ZZZ Other Electroconvulsive Therapy (ICD-10-PCS; principal; 2025-04-22 10:10)
DX: F25.9 Schizoaffective disorder, unspecified (principal)
CPT/HCPCS: 90870; 94760